=== PATIENT | female | born 1965 | race Caucasian/White ===

== ENCOUNTER → 2016-11-09 | Outpatient (CLI) | payer BC ==
--- NOTE | 2016-11-09 13:23 | P.PN ---
Progress Note - Text Patient returns for followup for chronic back pain with radiation to bilateral lower extremities s/p multiple laminectomy surgeries. Patient recently underwent left lumbar RFA and caudal epidural steroid injection x 1, the latter with excellent relief that is still persisting. Patient continues on [place] and adjuvant medications for pain from PCP with good relief. Patient denies adverse drug effects from medications. Today, pt denies new-onset weakness, bowel/bladder incontinence, or any other signs or symptoms of cauda equina syndrome. There are no signs of acute intoxication, and no indications of medication diversion or overuse. In addition to above, 13-point review of systems is also negative for chest pain , shortness of breath, changes in vision, changes in hearing, new onset weakness , abdominal pain, diarrhea, extreme fatigue, malaise, fever, skin changes, homicidal or suicidal ideation, or bowel or bladder incontinence. Vital Signs: Reviewed in EMR Gen: WDWN, AAOx3, NAD HEENT: NCAT, EOMI, hearing grossly normal Pulm: resp unlabored Abd: soft, NT, ND Neck: supple, trachea midline ROM in flexion lumbar spine: reduced due to pain ROM in extension lumbar spine: reduced due to pain Lumbar paravertebral tenderness: + Facet loading: ++ SI joint tenderness: + Guanaco's test: + R > L Straight leg raise: + bilateral, RLE at 35 degrees and LLE at 40 degrees Neuro: CN II-XII grossly intact, muscle strength lower extremities PRESERVED, but strength limited due to pain Imaging: Reviewed in EMR Assessment: 1. lumbar PLPS 2. lumbar radiculopathy 3. lumbar spondylosis without myelopathy 4. sacroiliitis Plan: 1. Explanation: Opioid and psychological risk scores were reviewed. Diagnoses , prognoses, and multiple treatment options including but not limited to physical therapy, interventional therapies, adjuvant medical therapies, narcotic medication therapies, and surgery were discussed with the patient and all questions were answered to the patient's satisfaction. 2. Opioid agreement: no narcotics prescribed 3. Counseling: The patient was counseled extensively on BODY MASS INDEX, EXERCISE. Specifically, the patient was instructed regarding the importance of weight loss and exercise in the context of both chronic pain and overall health. 4. Procedures: caudal KIM with epidurolysis in 8-10 weeks 5. Consultations: None 6. Investigations: None 7. Medications: none prescribed 8. Disposition: f/u for procedure as scheduled PQRS measures: 1-Patient's medications are documented in the chart. 2-Tobacco use is negative 3-Patient has not had a pneumococcal vaccine. 4-Advanced care planning discussed, patient unable to give. 5-Opioid contract NOT signed with the patient as we do not prescribe medications for her. 6-Pain positive, follow-up visit or procedure scheduled 7-Patient's blood pressure measured and documented, and patient will follow up with the primary care due to hypertension. 8-Patient's weight was measured, and body mass index ABOVE the normal limits, and counseling was done. Patient instructed to follow up with PCP. 9-Patient WAS NOT identified as an unhealthy alcohol user.
== END | disposition home or self-care (01) ==
CPT/HCPCS: 99211

== ENCOUNTER 2017-01-01 08:45 | Day surgery (SDC) | payer BC ==
[~2017-01-01 08:45] MED LIST: LACTATED RINGERS 1,000 ML IV SCH
[2017-01-01 09:41] VITALS: TEMP 98
[2017-01-01] MEDS ORDERED: LIDOCAINE 1% 20 ML VIAL (10MG/ML) FOR IV START INTRADERMA ONE (09:56)
[2017-01-01] MEDS ORDERED: BUPIVACAINE (PF) 0.5% 30 ML VIAL ONE (10:17)
[2017-01-01] MEDS ORDERED: fentaNYL (PF) 50 MCG/ML 2 ML AMP ONE (10:17)
[2017-01-01] MEDS ORDERED: TRIAMCINOLONE ACETONIDE 40 MG/ML 1 ML VIAL ONE (10:17)
[2017-01-01] MEDS ORDERED: MIDAZOLAM 2 MG/2 ML VIAL ONE (10:17)
--- NOTE | 2017-01-01 10:36 | P.PCN ---
Date of Procedure: 01/01/17 Surgeon: Gunner Arthur Pathology: none sent Condition: stable Disposition: PACU Description of Procedure: PREOP DIAGNOSIS: Lumbar postlaminectomy syndrome POSTOP DIAGNOSIS: Lumbar postlaminectomy syndrome PROCEDURE: Caudal epidural steroid injection with epidurolysis under fluoroscopic guidance ANESTHESIA: Local with 1% lidocaine; conscious sedation EBL: Minimal. PROCEDURE INDICATION: The patient with post-laminectomy syndrome with low back pain and radiculopathy radiating down in both legs, here for a caudal epidural steroid injection with epidurolysis. Patient does not use any blood thinning medications. PROCEDURE DESCRIPTION: The patient was seen and identified in the preoperative area. Risks, benefits, complications, and alternatives were discussed with the patient including but not limited to bleeding, infection, nerve damage, incomplete pain relief, and allergic reactions to medications. The patient agreed to proceed with the procedure and signed the consent after all questions were answered. IV was started, and vital signs were stable. Patient was taken to the OR and time out was completed to verify proper patient , procedure, laterality of pain, and allergies. The patient was placed in the prone position on procedure table and a pillow was placed under the abdomen to reduce lumbar lordosis. The lumbosacral area was prepped and draped in the usual sterile fashion. Critical pause was taken. Vital signs were closely monitored during the procedure. Fluoroscopic camera was placed in the lateral view and the anterior-posterior plates of the sacrum were identified with infiltration of the area overlying the sacral hiatus with 1% lidocaine .A 16 gauge RK epidural needle was used to advance through the sacral hiatus into the caudal epidural space. Omnipaque 300 dye 2cc was NOT injected due to shellfish allergy, but the position of the needle was verified to be in the midline with AP view. A Racz catheter was introduced into the epidural space and was advanced towards the L5-S1 interspace under direct fluoroscopic guidance. Multiple passes were made with the catheter for lysis of epidural adhesions. Kenalog 80mg with 2ml of preservative free Lidocaine 1% and 7 ml of preservative free normal saline was injected slowly. The needle and the catheter were withdrawn intact. COMPLICATIONS: None. DISPOSITION / PLANS: The patient was placed in a supine position and transferred to the recovery area in a stable condition for observation and was discharged from the recovery room after meeting discharge criteria. Home discharge instructions given to the patient by the staff. The patient was reexamined prior to discharge. The patient will schedule a follow up for a repeat caudal KIM with epidurolysis in 8 weeks.
[2017-01-01] MEDS ORDERED: IV FLUID CONTINUATION 700 ML IV ONE (10:46)
[2017-01-01 10:50] VITALS: RESP 18
--- NOTE | 2017-01-01 11:00 | FL ---
EXAMINATION TYPE: FL guided pain mgmt statistic DATE OF EXAM: 01/01/2017 10:38 AM HISTORY: Flouroscopy time 16 seconds of fluoroscopy provided. IMPRESSION: 1. Fluoroscopy time.
[2017-01-01 11:17] VITALS: BP 116/78; PULSE 78
== END 2017-01-01 11:15 | disposition home or self-care (01) ==
LOC: ORPAIN 08:45
PROVIDERS: ATTEND Anesthesiology
DX: M96.1 Postlaminectomy syndrome, not elsewhere classified (principal); M54.16 Radiculopathy, lumbar region; F41.9 Anxiety disorder, unspecified; F32.9 Major depressive disorder, single episode, unspecified; Z91.013 Allergy to seafood; Z79.891 Long term (current) use of opiate analgesic; Z79.899 Other long term (current) drug therapy
CPT/HCPCS: 81025; 62264; 99152; J2250; J3301; J3010

== ENCOUNTER 2017-02-26 08:48 | Day surgery (SDC) | payer BC ==
[2017-02-26 09:20] VITALS: RESP 18; TEMP 97.9
[2017-02-26] MEDS ORDERED: LACTATED RINGERS 1,000 ML IV ONE (09:20)
[2017-02-26] MEDS ORDERED: LIDOCAINE 1% 20 ML VIAL (10MG/ML) FOR IV START INTRADERMA ONE (09:21)
[2017-02-26] MEDS ORDERED: MIDAZOLAM 2 MG/2 ML VIAL ONE (09:50)
[2017-02-26] MEDS ORDERED: BUPIVACAINE (PF) 0.25% 30 ML VIAL ONE (09:50)
[2017-02-26] MEDS ORDERED: TRIAMCINOLONE ACETONIDE 40 MG/ML 1 ML VIAL ONE (09:50)
[2017-02-26] MEDS ORDERED: fentaNYL (PF) 50 MCG/ML 2 ML AMP ONE (09:50)
[2017-02-26] MEDS ORDERED: IOHEXOL 180 MG/ML 1 ML ML ONE (09:50)
--- NOTE | 2017-02-26 10:32 | P.PCN ---
Date of Procedure: 02/26/17 Preoperative Diagnosis: Failed back surgery syndrome Postoperative Diagnosis: Same as above Procedure(s) Performed: Caudal epidural steroid injection under fluoroscopic guidance Anesthesia: MAC Surgeon: Pato Bustamante Pathology: none sent Condition: stable Disposition: PACU Description of Procedure: The patient was seen in preop holding area consent was obtained then she was brought into the procedure room and placed in prone position. Skin was prepped with ChloraPrep and draped in a sterile manner. Lidocaine 1% was used to numb the skin up at the target point that was at the sacral hiatus on the lateral view of fluoroscopy. I used 17-gauge Touhy needle with a plastic sheath to go through the sacral hiatus and into the sacral canal. Then the plastic sheath was threaded in and the metal needlewas taken out. I then injected 2 MLS of Omnipaque which showed typical spread in the sacral canal, after that I threaded Racz catheter were the way to L5-S1 with back and forth movements to break the epidural adhesions. Then I injected 40 mg of Kenalog was 2 MLS of Marcaine 0.25% of 7 MLS of posterior free normal saline to a total volume of 7 MLS in epidural space. Patient tolerated procedure well.
[2017-02-26 10:54] VITALS: BP 100/62; PULSE 77
[2017-02-26] MEDS ORDERED: IV FLUID CONTINUATION 1,000 ML IV ONE (10:56)
--- NOTE | 2017-02-26 11:01 | FL ---
EXAMINATION TYPE: FL guided pain mgmt statistic DATE OF EXAM: 02/26/2017 10:32 AM CLINICAL HISTORY: Low back and sacral pain. TECHNIQUE: Fluoroscopy. COMPARISON: None. FINDINGS: Fluoroscopic guidance was provided during pain relief procedure performed by Dr. Bustamante. A total of 24 seconds of fluoroscopic time was utilized during the procedure and two spot images are acquired. Images acquired shows needle localization at level of the sacrum. IMPRESSION: As Above.
== END 2017-02-26 11:07 | disposition home or self-care (01) ==
LOC: ORPAIN 08:48
PROVIDERS: ATTEND Anesthesiology
DX: M96.1 Postlaminectomy syndrome, not elsewhere classified (principal); G96.12 Meningeal adhesions (cerebral) (spinal); Z91.013 Allergy to seafood
CPT/HCPCS: 81025; 62264; J2250; J3301; Q9965; J3010

== ENCOUNTER 2017-04-17 06:21 | Day surgery (SDC) | payer BC ==
[2017-04-13 14:20] VITALS: BMI 35.6
[2017-04-17 06:48] VITALS: RESP 18; TEMP 97.7
[2017-04-17] MEDS ORDERED: LACTATED RINGERS 1,000 ML IV ONE (06:51)
[2017-04-17] MEDS ORDERED: LIDOCAINE 1% 20 ML VIAL (10MG/ML) FOR IV START INTRADERMA ONE (06:51)
[2017-04-17] MEDS ORDERED: DEXAMETHASONE SOD PHOSPHATE 10 MG/ML 1 ML VIAL ONE (07:26)
[2017-04-17] MEDS ORDERED: fentaNYL (PF) 50 MCG/ML 2 ML AMP ONE (07:26)
[2017-04-17] MEDS ORDERED: MIDAZOLAM 2 MG/2 ML VIAL ONE (07:26)
[2017-04-17] MEDS ORDERED: LACTATED RINGERS 1,000 ML IV SCH (07:45)
[2017-04-17 08:14] VITALS: BP 133/65; PULSE 72
[2017-04-17] MEDS ORDERED: IV FLUID CONTINUATION 1,000 ML IV ONE (08:15)
--- NOTE | 2017-04-17 09:06 | P.PCN ---
Date of Procedure: 04/17/17 Preoperative Diagnosis: Postoperative Diagnosis: Procedure(s) Performed: Implants: Surgeon: Gunner Arthur Pathology: none sent Condition: stable Disposition: PACU Indications for Procedure: Operative Findings: Description of Procedure: PREOP DIAGNOSIS: Lumbar postlaminectomy syndrome POSTOP DIAGNOSIS: Lumbar postlaminectomy syndrome PROCEDURE: Caudal epidural steroid injection with epidurolysis under fluoroscopic guidance ANESTHESIA: Local with 1% lidocaine; conscious sedation EBL: Minimal. PROCEDURE INDICATION: The patient with post-laminectomy syndrome with low back pain and radiculopathy radiating down in both legs, here for a caudal epidural steroid injection with epidurolysis. Patient does not use any blood thinning medications. PROCEDURE DESCRIPTION: The patient was seen and identified in the preoperative area. Risks, benefits, complications, and alternatives were discussed with the patient including but not limited to bleeding, infection, nerve damage, incomplete pain relief, and allergic reactions to medications. The patient agreed to proceed with the procedure and signed the consent after all questions were answered. IV was started, and vital signs were stable. Patient was taken to the OR and time out was completed to verify proper patient , procedure, laterality of pain, and allergies. The patient was placed in the prone position on procedure table and a pillow was placed under the abdomen to reduce lumbar lordosis. The lumbosacral area was prepped and draped in the usual sterile fashion. Critical pause was taken. Vital signs were closely monitored during the procedure. Fluoroscopic camera was placed in the lateral view and the anterior-posterior plates of the sacrum were identified with infiltration of the area overlying the sacral hiatus with 1% lidocaine .A 16 gauge RK epidural needle was used to advance through the sacral hiatus into the caudal epidural space. Omnipaque 300 dye 2cc was NOT injected due to shellfish allergy, but the position of the needle was verified to be in the midline with AP view. A Racz catheter was introduced into the epidural space and was advanced towards the L5-S1 interspace under direct fluoroscopic guidance. Multiple passes were made with the catheter for lysis of epidural adhesions. Decadron 20 mg with 2ml of preservative free Lidocaine 1% and 5 ml of preservative free normal saline was injected slowly. The needle and the catheter were withdrawn intact. COMPLICATIONS: None. DISPOSITION / PLANS: The patient was placed in a supine position and transferred to the recovery area in a stable condition for observation and was discharged from the recovery room after meeting discharge criteria. Home discharge instructions given to the patient by the staff. The patient was reexamined prior to discharge and there were no issues. The patient will schedule a follow up in the clinic in 4-6 weeks.
--- NOTE | 2017-04-17 10:03 | FL ---
Fluoroscopy INDICATION: Pain FINDINGS: Fluoroscopy time: 10 seconds. Images obtained: 3. IMPRESSIONS: 1. Documentation of fluoroscopy.
== END 2017-04-17 08:24 | disposition home or self-care (01) ==
LOC: ORPAIN 06:21
PROVIDERS: ATTEND Anesthesiology
DX: M96.1 Postlaminectomy syndrome, not elsewhere classified (principal); M51.36 Other intervertebral disc degeneration, lumbar region; M48.06 Spinal stenosis, lumbar region; F41.9 Anxiety disorder, unspecified; Z79.891 Long term (current) use of opiate analgesic; Z79.899 Other long term (current) drug therapy; Z91.013 Allergy to seafood
CPT/HCPCS: 62264; 99152; J2250; J1100; J3010

== ENCOUNTER → 2017-05-29 | Outpatient (CLI) | payer BC ==
[2017-05-29 14:22] VITALS: BP 110/72; PULSE 87; RESP 16; TEMP 98
--- NOTE | 2017-05-29 14:24 | P.PN ---
Progress Note - Text Patient returns for followup for chronic neck and back pain with radiation to bilateral lower extremities s/p multiple laminectomy surgeries; neck pain is now radiating to left upper extremity and has worsened in last three months. Patient recently underwent caudal IKM x 3 with epidurolysis for back pain, with good relief that is still persisting. Patient continues on [place] and adjuvant medications for pain from PCP with good relief. Patient denies adverse drug effects from medications. Today, pt denies new-onset weakness, bowel/bladder incontinence, or any other signs or symptoms of cauda equina syndrome. There are no signs of acute intoxication, and no indications of medication diversion or overuse. In addition to above, 13-point review of systems is also negative for chest pain , shortness of breath, changes in vision, changes in hearing, new onset weakness , abdominal pain, diarrhea, extreme fatigue, malaise, fever, skin changes, homicidal or suicidal ideation, or bowel or bladder incontinence. Vital Signs: Reviewed in EMR Gen: WDWN, AAOx3, NAD HEENT: NCAT, EOMI, hearing grossly normal Pulm: resp unlabored Abd: soft, NT, ND Neck: supple, trachea midline ROM cervical spine flexion: reduced ROM cervical spine extension: reduced +cervical facet tenderness, L >> R Spurling's neg bilateral decreased equipment maint tech strength LUE as compared to RUE Imaging: Reviewed in EMR Assessment: 1. lumbar PLPS 2. lumbar radiculopathy 3. lumbar spondylosis without myelopathy 4. sacroiliitis 5. cervical radic Plan: 1. Explanation: Opioid and psychological risk scores were reviewed. Diagnoses , prognoses, and multiple treatment options including but not limited to physical therapy, interventional therapies, adjuvant medical therapies, narcotic medication therapies, and surgery were discussed with the patient and all questions were answered to the patient's satisfaction. 2. Opioid agreement: no narcotics prescribed 3. Counseling: The patient was counseled extensively on BODY MASS INDEX, EXERCISE. Specifically, the patient was instructed regarding the importance of weight loss and exercise in the context of both chronic pain and overall health. 4. Procedures: none for now 5. Consultations: None 6. Investigations: MRI cervical spine 7. Medications: none prescribed 8. Disposition: f/u for re-eval in 6 weeks with MRI C-spine result PQRS measures: 1-Patient's medications are documented in the chart. 2-Tobacco use is negative 3-Patient has not had a pneumococcal vaccine. 4-Advanced care planning discussed, patient unable to give. 5-Opioid contract NOT signed with the patient as we do not prescribe medications for her. 6-Pain positive, follow-up visit or procedure scheduled 7-Patient's blood pressure measured and documented, and patient will follow up with the primary care due to hypertension. 8-Patient's weight was measured, and body mass index ABOVE the normal limits, and counseling was done. Patient instructed to follow up with PCP. 9-Patient WAS NOT identified as an unhealthy alcohol user.
== END | disposition home or self-care (01) ==
LOC: PNWHC3 13:56
PROVIDERS: ATTEND Anesthesiology
DX: M47.26 Other spondylosis with radiculopathy, lumbar region (principal); M46.1 Sacroiliitis, not elsewhere classified; M96.1 Postlaminectomy syndrome, not elsewhere classified; M54.12 Radiculopathy, cervical region; Z79.899 Other long term (current) drug therapy
CPT/HCPCS: 99211

== ENCOUNTER 2017-12-01 12:10 | Emergency (ER) | payer BC ==
[2017-12-01 12:24] VITALS: TEMP 97.5
--- NOTE | 2017-12-01 13:21 | ED ---
Female Urogenital HPI - General Chief complaint: Vaginal Bleeding Stated complaint: Vaginal Bleeding Time Seen by Provider: 12/01/17 12:26 Source: patient, RN notes reviewed Mode of arrival: ambulatory Limitations: no limitations - History of Present Illness Initial comments: This is a 52-year-old female who presents to the emergency department with chief complaint of vaginal bleeding. Patient states that she was having regular periods up until October 07. She states that on October 07 she began bleeding which later became spotting. Patient states that on Sunday she noticed an increase in her vaginal bleeding. She states that she did make an appointment with an LEAD INSTRUCTOR/FLIGHT ATTENDANT, Dr. Joiner'karli for December 11. Patient states that this morning she woke up and her pad and underwear were completely soaked. Patient states she has never experienced anything like this before. She has had four pregnancies, 2 live births and 2 miscarriages. Patient states that she was on Depo-Provera until the age of 44. Denies history of STDs. Patient states she is sexually active with her . Patient states that this morning she also began to develop some lower abdominal cramping. She denies fever or chills, nausea or vomiting, urinary symptoms such as dysuria, increased frequency or urgency. She does state that she has noticed some blood in her urine but believes it is from the vaginal blood. Patient states that she is changing her pads every half hour to 1 hour but that when she does they' re not completely saturated. Patient states that today she is feeling weak, stating she feels out of it. Denies any dizziness. Last Menstrual Period: 10/07/17 - Related Data Home Medications Medication Instructions Recorded Confirmed ALPRAZolam [Xanax] 0.25 mg PO HS PRN 03/26/14 05/29/17 HYDROcodone/APAP 10-325MG [[place] 1 tab PO TID PRN 03/26/14 05/29/17 10-325] PARoxetine HCL [Paxil] 40 mg PO HS 03/26/14 05/29/17 Simvastatin [Zocor] 20 mg PO HS 03/26/14 05/29/17 Valsartan/Hydrochlorothiazide 1 tab PO DAILY 03/26/14 05/29/17 [Diovan Hct 160-12.5 mg Tab] Etodolac [Lodine] 400 mg PO BID 12/21/14 05/29/17 Pregabalin [Lyrica] 75 mg PO BID 04/12/16 05/29/17 Cyclobenzaprine [Flexeril] 10 mg PO BID 12/01/17 12/01/17 Allergies Allergy/AdvReac Type Severity Reaction Status Date / Time shellfish derived Allergy Itching Verified 12/01/17 13:14 and Swelling Review of Systems ROS Statement: Those systems with pertinent positive or pertinent negative responses have been documented in the HPI. ROS Other: All systems not noted in ROS Statement are negative. Past Medical History Past Medical History: Fibromyalgia, Hyperlipidemia, Hypertension, Osteoarthritis (OA) Additional Past Medical History / Comment(s): BACK PAIN History of Any Multi-Drug Resistant Organisms: None Reported Past Surgical History: Adenoidectomy, Back Surgery, Cholecystectomy, Tonsillectomy Additional Past Surgical History / Comment(s): D & C , thyroid - CYST REMOVED, pain clinic procedures, BACK SURGERY,ARTHROSCOPIC RT HIP Past Anesthesia/Blood Transfusion Reactions: No Reported Reaction Past Psychological History: Anxiety, Depression Smoking Status: Former smoker Past Alcohol Use History: None Reported Past Drug Use History: None Reported - Past Family History Daughter(s) Family Medical History: Cancer Additional Family Medical History / Comment(s): THYROID CANCER Mother Family Medical History: COPD General Exam - General Exam Comments Initial Comments: General: Awake and alert, well-developed; in no apparent distress. HEENT: Head atraumatic, normocephalic. Pupils are equal, round and reactive to light. Extraocular movements intact. Oropharynx moist without erythema or exudate. Neck: Supple. Normal ROM. Cardiovascular: Regular rate and rhythm. No murmurs, rubs or gallops. Chest symmetrical. Respiratory: Lungs clear to auscultation bilaterally. No wheezes, rales or rhonchi. Normal respiratory effort with no use of accessory muscles. Abdomen: Soft, non-tender, non-distended. No rigidity, rebound or guarding. Normal bowel sounds in all 4 quadrants. Musculoskeletal: Normal ROM, no tenderness bilateral upper and lower extremities. Skin: [place], warm and dry without rashes or lesions. Neurological: Alert and oriented x3. CN II-XII grossly intact. Speech is fluent and answers are appropriate. No focal neuro deficits. Psychiatric: Normal mood and affect. No overt signs of depression or anxiety noted. Limitations: no limitations External exam: Present: normal external exam. Absent: lesions Speculum exam: Present: vaginal bleeding. Absent: erythema, vaginal discharge By manual exam: Present: uterine tenderness. Absent: cervical motion tenderness , adnexal tenderness Course Vital Signs 12/01/17 12/01/17 12:21 14:10 Temperature 97.5 F L Pulse Rate 97 79 Respiratory 16 18 Rate Blood Pressure 123/88 110/58 O2 Sat by Pulse 99 99 Oximetry Medical Decision Making - Medical Decision Making This is a 52-year-old female who presented to the emergency department with chief complaint of vaginal bleeding. Patient had a negative urine hCG. CBC was within normal limits with a hemoglobin of 12.6. Coagulation labs were all within normal limits. Patient did have blood in her urine but she has active vaginal bleeding on speculum exam. An ultrasound was performed with suboptimal views but a thickened endometrium was suspected. Patient is in no acute distress at this time. She will be discharged home with recommendation to follow-up with her LEAD INSTRUCTOR/FLIGHT ATTENDANT as scheduled on December 11. Return parameters were discussed. Patient is in agreement with plan and voices understanding. All questions were answered. - Lab Data Result diagrams: 12/01/17 13:00 12/01/17 13:00 Lab Results 12/01/17 12/01/17 12/01/17 Range/Units 13:00 13:00 13:00 WBC 5.1 (3.8-10.6) k/uL RBC 4.36 (3.80-5.40) m/uL Hgb 12.6 (11.4-16.0) gm/dL Hct 38.6 (34.0-46.0) % MCV 88.6 (80.0-100.0) fL MCH 29.0 (25.0-35.0) pg MCHC 32.7 (31.0-37.0) g/dL RDW 14.0 (11.5-15.5) % Plt Count 273 (150-450) k/uL Neutrophils % 64 % Lymphocytes % 28 % Monocytes % 5 % Eosinophils % 1 % Basophils % 1 % Neutrophils # 3.3 (1.3-7.7) k/uL Lymphocytes # 1.4 (1.0-4.8) k/uL Monocytes # 0.2 (0-1.0) k/uL Eosinophils # 0.1 (0-0.7) k/uL Basophils # 0.0 (0-0.2) k/uL PT (9.0-12.0) sec INR (<1.2) APTT (22.0-30.0) sec Sodium 138 (137-145) mmol/L Potassium 4.3 (3.5-5.1) mmol/L Chloride 105 (98-107) mmol/L Carbon Dioxide 24 (22-30) mmol/L Anion Gap 9 mmol/L BUN 11 (7-17) mg/dL Creatinine 0.75 (0.52-1.04) mg/dL Est GFR (MDRD) Af Amer >60 (>60 ml/min/1.73 sqM) Est GFR (MDRD) Non-Af >60 (>60 ml/min/1.73 sqM) Glucose 101 H (74-99) mg/dL Calcium 9.6 (8.4-10.2) mg/dL Total Bilirubin 0.3 (0.2-1.3) mg/dL AST 19 (14-36) U/L ALT 25 (9-52) U/L Alkaline Phosphatase 60 (38-126) U/L Total Protein 6.2 L (6.3-8.2) g/dL Albumin 3.8 (3.5-5.0) g/dL Urine Color Urine Appearance (Clear) Urine pH (5.0-8.0) Ur Specific [place] (1.001-1.035) Urine Protein (Negative) Urine Glucose (UA) (Negative) Urine Ketones (Negative) Urine Blood (Negative) Urine Nitrite (Negative) Urine Bilirubin (Negative) Urine Urobilinogen (<2.0) mg/dL Ur Leukocyte Esterase (Negative) Urine RBC (0-5) /hpf Urine WBC (0-5) /hpf Ur Squamous Epith Cells (0-4) /hpf Urine Mucus (None) /hpf Urine HCG, Qual Not Detected (Not Detectd) 12/01/17 12/01/17 Range/Units 13:00 13:00 WBC (3.8-10.6) k/uL RBC (3.80-5.40) m/uL Hgb (11.4-16.0) gm/dL Hct (34.0-46.0) % MCV (80.0-100.0) fL MCH (25.0-35.0) pg MCHC (31.0-37.0) g/dL RDW (11.5-15.5) % Plt Count (150-450) k/uL Neutrophils % % Lymphocytes % % Monocytes % % Eosinophils % % Basophils % % Neutrophils # (1.3-7.7) k/uL Lymphocytes # (1.0-4.8) k/uL Monocytes # (0-1.0) k/uL Eosinophils # (0-0.7) k/uL Basophils # (0-0.2) k/uL PT 9.9 (9.0-12.0) sec INR 1.0 (<1.2) APTT 24.5 (22.0-30.0) sec Sodium (137-145) mmol/L Potassium (3.5-5.1) mmol/L Chloride (98-107) mmol/L Carbon Dioxide (22-30) mmol/L Anion Gap mmol/L BUN (7-17) mg/dL Creatinine (0.52-1.04) mg/dL Est GFR (MDRD) Af Amer (>60 ml/min/1.73 sqM) Est GFR (MDRD) Non-Af (>60 ml/min/1.73 sqM) Glucose (74-99) mg/dL Calcium (8.4-10.2) mg/dL Total Bilirubin (0.2-1.3) mg/dL AST (14-36) U/L ALT (9-52) U/L Alkaline Phosphatase (38-126) U/L Total Protein (6.3-8.2) g/dL Albumin (3.5-5.0) g/dL Urine Color Light Red Urine Appearance Cloudy H (Clear) Urine pH 8.0 (5.0-8.0) Ur Specific [place] 1.020 (1.001-1.035) Urine Protein 1+ H (Negative) Urine Glucose (UA) Negative (Negative) Urine Ketones Negative (Negative) Urine Blood Large H (Negative) Urine Nitrite Negative (Negative) Urine Bilirubin 2+ H (Negative) Urine Urobilinogen <2.0 (<2.0) mg/dL Ur Leukocyte Esterase Trace H (Negative) Urine RBC >182 H (0-5) /hpf Urine WBC 11 H (0-5) /hpf Ur Squamous Epith Cells 1 (0-4) /hpf Urine Mucus Rare H (None) /hpf Urine HCG, Qual (Not Detectd) - Radiology Data Radiology results: report reviewed Transvaginal ultrasound impression: Suboptimal visualization of the endometrium which is suspected thickened, based on patient's symptoms consider gynecology referral to assess for D&C. There is non-simple cystic left ovary. Follow-up ultrasound 6 weeks time is advised to further assess. Disposition Clinical Impression: Vaginal bleeding, Endometrial thickening on ultra sound Disposition: HOME SELF-CARE Condition: Good Instructions: Dysfunctional Uterine Bleeding (ED) Additional Instructions: Please follow up with LEAD INSTRUCTOR/FLIGHT ATTENDANT as scheduled. Please follow up with primary care provider within 1-2 days. Return to emergency department if symptoms should worsen or any concerns arise. Referrals: Margo Fischer MD [Primary Care Provider] - 1-2 days Time of Disposition: 14:53
[2017-12-01 13:25] LABS: Basophils % (A) 1 %; Eosinophils # (A) 0.1 k/uL (0-0.7); Eosinophils % (A) 1 %; HCT 38.6 % (34.0-46.0); HGB 12.6 gm/dL (11.4-16.0); Lymphocytes # (A) 1.4 k/uL (1.0-4.8); Lymphocytes % (A) 28 %; MCHC 32.7 g/dL (31.0-37.0); MCV 88.6 fL (80.0-100.0); Mean Platelet Volume 7.8; Monocytes # (A) 0.2 k/uL (0-1.0); Monocytes % (A) 5 %; Neutrophils # (A) 3.3 k/uL (1.3-7.7); Neutrophils % (A) 64 %; Platelet Count 273 k/uL (150-450); RBC 4.36 m/uL (3.80-5.40); WBC 5.1 k/uL (3.8-10.6)
[2017-12-01 13:33] LABS: Appearance,Urine Cloudy (Clear); Bilirubin,Urine 2+ (Negative); Blood,Urine Large (Negative); Color,Urine Light Red; Glucose,Urine (UA) Negative (Negative); Ketones,Urine Negative (Negative); Leukocyte Esterase,Urine Trace (Negative); Mucus,Urine Rare /hpf; Nitrite,Urine Negative (Negative); Protein,Urine 1+ (Negative); RBC,Urine >182 /hpf (0-5); Squamous Epithelial Cell,Urine 1 /hpf (0-4); Urobilinogen,Urine <2.0 mg/dL (<2.0); WBC,Urine 11 /hpf (0-5)
[2017-12-01 13:36] LABS: ALT 25 U/L (9-52); AST 19 U/L (14-36); Albumin 3.8 g/dL (3.5-5.0); Alkaline Phosphatase 60 U/L (38-126); Anion Gap 9 mmol/L; Blood Urea Nitrogen 11 mg/dL (7-17); Calcium 9.6 mg/dL (8.4-10.2); Carbon Dioxide 24 mmol/L (22-30); Chloride 105 mmol/L (98-107); Glucose 101 mg/dL (74-99); Potassium 4.3 mmol/L (3.5-5.1); Sodium 138 mmol/L (137-145); Total Bilirubin 0.3 mg/dL (0.2-1.3); Total Protein 6.2 g/dL (6.3-8.2)
[2017-12-01 13:40] LABS: Partial Thromboplastin Time 24.5 sec (22.0-30.0); Prothrombin Time 9.9 sec (9.0-12.0)
--- NOTE | 2017-12-01 14:35 | US ---
EXAMINATION TYPE: US transvaginal DATE OF EXAM: 12/01/2017 COMPARISON: NONE CLINICAL HISTORY: vaginal bleeding. Bleeding since Oct 07, was on depo till age 44, , h/o tubal cy st removal TECHNIQUE: TV Date of LMP: 10/07/2017 EXAM MEASUREMENTS: Uterus: 8.0 x 3.5 x 4.7 cm Endometrial Stripe: 1.5 cm Right Ovary: 2.3 x 1.5 x 1.8 cm Left Ovary: 2.6 x 1.6 x 2.1 cm Patient has chronic back pain and could not lay fully flat, with UT angling to the right it limited e xam. 1. Uterus: Anteverted, UT tilts far right and difficult to image, but no obvious pathology noted 2. Endometrium: thickened in appearance 3. Right Ovary: wnl 4. Left Ovary: 2.3cm septated cyst with internal debris noted Spectral, color and waveform doppler imaging shows good arterial and venous flow within the ovaries . 5. Bilateral Adnexa: wnl 6. Posterior cul-de-sac: wnl There is poor visualization of endometrium on images saved. Measurements may be inaccurate. Patient i s noted premenopausal in notes. No free fluid is seen in pelvic cul-de-sac. There is 2.3 cm nonsimple cyst left ovary noted. IMPRESSION: Suboptimal visualization of endometrium which is suspected thickened, based on patient's symptoms consider gynecology referral to assess for D&C. There is nonsimple cyst left ovary. Follow-u p ultrasound 6 weeks' time is advised to further assess.
[2017-12-01 15:14] VITALS: BP 109/64; PULSE 89; RESP 16
== END 2017-12-01 15:14 | disposition home or self-care (01) ==
LOC: EC 12:10
DX: N93.9 Abnormal uterine and vaginal bleeding, unspecified (principal); R93.8 Abnormal findings on diagnostic imaging of other specified body structures; M79.7 Fibromyalgia; I10 Essential (primary) hypertension; E78.5 Hyperlipidemia, unspecified; F32.9 Major depressive disorder, single episode, unspecified; F41.9 Anxiety disorder, unspecified; Z90.49 Acquired absence of other specified parts of digestive tract; Z98.890 Other specified postprocedural states; Z87.891 Personal history of nicotine dependence; Z91.013 Allergy to seafood; Z32.02 Encounter for pregnancy test, result negative; Z79.899 Other long term (current) drug therapy
CPT/HCPCS: 36415; 76830; 80053; 81001; 81025; 85025; 85610; 85730; 93975; 99284

== ENCOUNTER → 2017-12-11 | Outpatient (CLI) | payer BC ==
--- NOTE | 2017-12-12 10:50 | MM ---
Reason for exam: screening (asymptomatic). Last mammogram was performed 2 years and 6 months ago. History: Family history of breast cancer in paternal grandmother. Physical Findings: A clinical breast exam by your physician is recommended on an annual basis and results should be correlated with mammographic findings. MG Screening Mammo w CAD Bilateral CC and MLO view(s) were taken. Prior study comparison: June 25, 2015, bilateral MG screening mammo w CAD. November 03, 2013, bilateral digital screening mammo w/CAD. The breast tissue is heterogeneously dense. This may lower the sensitivity of mammography. Finding: There are typically benign round calcifications in both breasts. There is no discrete abnormality. ASSESSMENT: Benign, BI-RAD 2 RECOMMENDATION: Routine screening mammogram of both breasts in 1 year.
--- NOTE | 2017-12-12 12:06 | BD ---
EXAMINATION TYPE: MG DEXA axial skeleton. DATE OF EXAM: 12/11/2017 COMPARISON: NONE CLINICAL HISTORY: Postmenopausal female. Osteoporosis screening. Height: 63 IN Weight: 207 LBS FRAX RISK QUESTIONS: Alcohol (3 or more units per day): NO Family History (Parent hip fracture): NO Glucocorticoids (More than 3mos): NO (Ex: prednisone, prednisolone, methylprednisolone, dexamethasone, and hydrocortisone). History of Fracture in Adulthood: NO Secondary Osteoporosis: 1. Type 1 Diabetes: NO 2. Hyperthyroidism: NO 3. Menopause before 45: NO 4. Malnutrition: NO 5. Chronic liver disease: NO Rheumatoid Arthritis: NO Current Tobacco Use: NO RISK FACTORS HISTORY OF: Surgery to Spine: YES When: DEC 2004 Active: YES Diet low in dairy products/other sources of calcium: YES If Premenopausal, do you have irregular periods: YES MEDICATIONS: Additional Medications: VALSARTAN HCT, FLEXERIL, NORCO, PAXIL, LODINE, XANAX, SIMVASTATIN, LYRICA EXAM MEASUREMENTS: Bone mineral densitometry was performed using the [employer]. PT HAD L-SPINE SURGERY 2004 Bone mineral density about the R hip (g/cm2): 0.996 Bone mineral density about the L hip (g/cm2): 0.970 T Score values are as follows: -----R Neck: -0.3 -----L Neck: -0.5 -----R Total: 1.1 -----L Total: 1.3 Bone mineral density BASELINE IMPRESSION: Normal (Values between +1 and -1 indicate normal bone mass). Consider repeating this study in 5 year s or sooner if there is some new clinical indication. NOTE: T-SCORE=SD OF THE YOUNG ADULT MEAN.
== END | disposition home or self-care (01) ==
LOC: RADMAMWWP 14:52
PROVIDERS: ATTEND Internal Medicine
DX: Z12.31 Encounter for screening mammogram for malignant neoplasm of breast (principal); M85.9 Disorder of bone density and structure, unspecified
CPT/HCPCS: 77067; 77080

== ENCOUNTER 2018-05-28 13:13 | Observation (INO) | payer BC ==
[2018-05-28] MEDS ORDERED: ASPIRIN 81 MG PO STA (13:34)
[2018-05-28] MEDS ORDERED: NITROGLYCERIN OINT 1 INCH/GM PACKET TOPICAL STA (13:34)
--- NOTE | 2018-05-28 13:37 | ED ---
General Adult HPI - General Chief complaint: Chest Pain Stated complaint: Chest pain/sob Time Seen by Provider: 05/28/18 13:15 Source: patient, RN notes reviewed Mode of arrival: ambulatory Limitations: no limitations - History of Present Illness Initial comments: This is a 52-year-old female presents emergency Department with a past medical history significant for high cholesterol high blood pressure. Patient comes in today complaining of shortness of breath over the last 3 days and intermittent chest pain with the shortness of breath over the last 3 days. Patient states today at work her fit. Told her heart race been 106 in the 126. Patient states she can feel her heart racing and was a spray some chest heaviness at that time but that is subsided at this time. Patient states even lying in bed she still feels short of breath. Patient denies any calf pain or leg swelling. Patient denies abdominal pain patient denies nausea vomiting diarrhea. Patient denies any headache patient denies numbness weakness. Patient denies lightheadedness dizziness or near syncopal episode. - Related Data Home Medications Medication Instructions Recorded Confirmed ALPRAZolam [Xanax] 0.25 mg PO HS PRN 03/26/14 05/28/18 HYDROcodone/APAP 10-325MG [Bigelow 1 tab PO Q12H 03/26/14 05/28/18 10-325] PARoxetine HCL [Paxil] 60 mg PO HS 03/26/14 05/28/18 Etodolac [Lodine] 400 mg PO BID 12/21/14 05/28/18 Pregabalin [Lyrica] 75 mg PO BID 04/12/16 05/28/18 Cyclobenzaprine [Flexeril] 10 mg PO BID 12/01/17 05/28/18 Losartan-Hctz 50-12.5 mg [Hyzaar 1 tab PO DAILY 05/28/18 05/28/18 50-12.5] Allergies Allergy/AdvReac Type Severity Reaction Status Date / Time shellfish derived Allergy Itching Verified 05/28/18 13:21 and Swelling Review of Systems ROS Statement: Those systems with pertinent positive or pertinent negative responses have been documented in the HPI. ROS Other: All systems not noted in ROS Statement are negative. Past Medical History Past Medical History: Fibromyalgia, Hyperlipidemia, Hypertension, Osteoarthritis (OA) Additional Past Medical History / Comment(s): BACK PAIN History of Any Multi-Drug Resistant Organisms: None Reported Past Surgical History: Adenoidectomy, Back Surgery, Cholecystectomy, Tonsillectomy Additional Past Surgical History / Comment(s): D & C , thyroid - CYST REMOVED, pain clinic procedures, BACK SURGERY,ARTHROSCOPIC RT HIP Past Anesthesia/Blood Transfusion Reactions: No Reported Reaction Past Psychological History: Anxiety, Depression Smoking Status: Former smoker Past Alcohol Use History: None Reported Past Drug Use History: None Reported - Past Family History Daughter(s) Family Medical History: Cancer Additional Family Medical History / Comment(s): THYROID CANCER Mother Family Medical History: COPD General Exam - General Exam Comments Initial Comments: GENERAL: Patient is well-developed and well-nourished. Patient is nontoxic and well- hydrated and is in mild distress. ENT: Neck is soft and supple. No significant lymphadenopathy is noted. Oropharynx is clear. Moist mucous membranes. Neck has full range of motion without eliciting any pain. EYES: The sclera were anicteric and conjunctiva were pink and moist. Extraocular movements were intact and pupils were equal round and reactive to light. Eyelids were unremarkable. PULMONARY: Unlabored respirations. Good breath sounds bilaterally. No audible rales rhonchi or wheezing was noted. CARDIOVASCULAR: There is a regular rate and rhythm without any murmurs gallops or rubs. ABDOMEN: Soft and nontender with normal bowel sounds. No palpable organomegaly was noted. There is no palpable pulsatile mass. SKIN: Skin is clear with no lesions or rashes and otherwise unremarkable. NEUROLOGIC: Patient is alert and oriented x3. Cranial nerves II through XII are grossly intact. Motor and sensory are also intact. Normal speech, volume and content. Symmetrical smile. MUSCULOSKELETAL: Normal extremities with adequate strength and full range of motion. No lower extremity swelling or edema. No calf tenderness. LYMPHATICS: No significant lymphadenopathy is noted PSYCHIATRIC: Normal psychiatric evaluation. Normal interpersonal interactions appears functionally intact in deals appropriately with others. No signs of depression. No signs of anxiety. Limitations: no limitations Course Vital Signs 05/28/18 05/28/18 05/28/18 13:17 13:31 13:37 Temperature 98.1 F Pulse Rate 98 87 Pulse Rate [ 82 Bilateral Supine Photo Mask Pattern Generator] Respiratory 18 18 Rate Blood Pressure 148/87 157/78 O2 Sat by Pulse 98 99 Oximetry Medical Decision Making - Medical Decision Making EKG shows sinus rhythm at 80 bpm WV interval is on a 14 QRS is 82 QT interval 388 QTC is 447. Patient's EKG shows no ST segment elevation or depression or T wave abnormalities are noted. Chest x-ray shows no acute abnormality. I spoke with Dr. Fischer he agreed to admit the patient admitted the patient and consult to cardiology. - Lab Data Result diagrams: 05/28/18 13:33 05/28/18 13:33 Lab Results 05/28/18 05/28/18 05/28/18 Range/Units 13:33 13:33 13:33 WBC 7.1 (3.8-10.6) k/uL RBC 4.75 (3.80-5.40) m/uL Hgb 13.4 (11.4-16.0) gm/dL Hct 40.3 (34.0-46.0) % MCV 84.8 (80.0-100.0) fL MCH 28.3 (25.0-35.0) pg MCHC 33.4 (31.0-37.0) g/dL RDW 14.4 (11.5-15.5) % Plt Count 313 (150-450) k/uL Neutrophils % 56 % Lymphocytes % 32 % Monocytes % 6 % Eosinophils % 3 % Basophils % 0 % Neutrophils # 4.0 (1.3-7.7) k/uL Lymphocytes # 2.3 (1.0-4.8) k/uL Monocytes # 0.5 (0-1.0) k/uL Eosinophils # 0.2 (0-0.7) k/uL Basophils # 0.0 (0-0.2) k/uL PT (9.0-12.0) sec INR (<1.2) APTT (22.0-30.0) sec D-Dimer (<0.60) mg/L FEU Sodium 139 (137-145) mmol/L Potassium 3.9 (3.5-5.1) mmol/L Chloride 106 (98-107) mmol/L Carbon Dioxide 22 (22-30) mmol/L Anion Gap 11 mmol/L BUN 9 (7-17) mg/dL Creatinine 0.77 (0.52-1.04) mg/dL Est GFR (CKD-EPI)AfAm >90 (>60 ml/min/1.73 sqM) Est GFR (CKD-EPI)NonAf 88 (>60 ml/min/1.73 sqM) Glucose 88 (74-99) mg/dL Calcium 9.7 (8.4-10.2) mg/dL Magnesium 2.1 (1.6-2.3) mg/dL Total Bilirubin 0.5 (0.2-1.3) mg/dL AST 39 H (14-36) U/L ALT 23 (9-52) U/L Alkaline Phosphatase 78 (38-126) U/L Total Creatine Kinase 169 H (30-135) U/L CK-MB (CK-2) 1.5 (0.0-2.4) ng/mL CK-MB (CK-2) Rel Index 0.9 Troponin I <0.012 (0.000-0.034) ng/mL NT-Pro-B Natriuret Pep pg/mL Total Protein 7.2 (6.3-8.2) g/dL Albumin 4.5 (3.5-5.0) g/dL 05/28/18 05/28/18 Range/Units 13:33 13:33 WBC (3.8-10.6) k/uL RBC (3.80-5.40) m/uL Hgb (11.4-16.0) gm/dL Hct (34.0-46.0) % MCV (80.0-100.0) fL MCH (25.0-35.0) pg MCHC (31.0-37.0) g/dL RDW (11.5-15.5) % Plt Count (150-450) k/uL Neutrophils % % Lymphocytes % % Monocytes % % Eosinophils % % Basophils % % Neutrophils # (1.3-7.7) k/uL Lymphocytes # (1.0-4.8) k/uL Monocytes # (0-1.0) k/uL Eosinophils # (0-0.7) k/uL Basophils # (0-0.2) k/uL PT 9.5 (9.0-12.0) sec INR 1.0 (<1.2) APTT 23.0 (22.0-30.0) sec D-Dimer 0.38 (<0.60) mg/L FEU Sodium (137-145) mmol/L Potassium (3.5-5.1) mmol/L Chloride (98-107) mmol/L Carbon Dioxide (22-30) mmol/L Anion Gap mmol/L BUN (7-17) mg/dL Creatinine (0.52-1.04) mg/dL Est GFR (CKD-EPI)AfAm (>60 ml/min/1.73 sqM) Est GFR (CKD-EPI)NonAf (>60 ml/min/1.73 sqM) Glucose (74-99) mg/dL Calcium (8.4-10.2) mg/dL Magnesium (1.6-2.3) mg/dL Total Bilirubin (0.2-1.3) mg/dL AST (14-36) U/L ALT (9-52) U/L Alkaline Phosphatase (38-126) U/L Total Creatine Kinase (30-135) U/L CK-MB (CK-2) (0.0-2.4) ng/mL CK-MB (CK-2) Rel Index Troponin I (0.000-0.034) ng/mL NT-Pro-B Natriuret Pep 27 pg/mL Total Protein (6.3-8.2) g/dL Albumin (3.5-5.0) g/dL Disposition Clinical Impression: Chest pain, Palpitations Disposition: ADMITTED IP TO THIS HOSP Referrals: Margo Fischer MD [Primary Care Provider] - 1-2 days Time of Disposition: 14:42
[2018-05-28 13:44] LABS: Basophils % (A) 0 %; Eosinophils # (A) 0.2 k/uL (0-0.7); Eosinophils % (A) 3 %; HCT 40.3 % (34.0-46.0); HGB 13.4 gm/dL (11.4-16.0); Lymphocytes # (A) 2.3 k/uL (1.0-4.8); Lymphocytes % (A) 32 %; MCH 28.3 pg (25.0-35.0); MCHC 33.4 g/dL (31.0-37.0); MCV 84.8 fL (80.0-100.0); Mean Platelet Volume 6.9; Monocytes # (A) 0.5 k/uL (0-1.0); Monocytes % (A) 6 %; Neutrophils % (A) 56 %; Platelet Count 313 k/uL (150-450); RBC 4.75 m/uL (3.80-5.40); RDW 14.4 % (11.5-15.5); WBC 7.1 k/uL (3.8-10.6)
[2018-05-28 13:58] LABS: ALT 23 U/L (9-52); Albumin 4.5 g/dL (3.5-5.0); Alkaline Phosphatase 78 U/L (38-126); Anion Gap 11 mmol/L; Calcium 9.7 mg/dL (8.4-10.2); Carbon Dioxide 22 mmol/L (22-30); Chloride 106 mmol/L (98-107); D-Dimer 0.38 mg/L FEU (<0.60); Glucose 88 mg/dL (74-99); Magnesium 2.1 mg/dL (1.6-2.3); Prothrombin Time 9.5 sec (9.0-12.0); Sodium 139 mmol/L (137-145); Total Bilirubin 0.5 mg/dL (0.2-1.3); Total Protein 7.2 g/dL (6.3-8.2)
[2018-05-28 13:59] LABS: Potassium 3.9 mmol/L (3.5-5.1)
[2018-05-28 14:00] LABS: AST 39 U/L (14-36); Blood Urea Nitrogen 9 mg/dL (7-17)
--- NOTE | 2018-05-28 14:08 | XR ---
EXAMINATION TYPE: XR chest 2V DATE OF EXAM: 05/28/2018 COMPARISON: 02/14/2010 HISTORY: Chest pain TECHNIQUE: Frontal and lateral views of the chest are obtained. FINDINGS: Minimal left basilar linear subsegmental atelectasis is seen. There is no focal air space opacity, pleural effusion, or pneumothorax seen. The cardiac silhouette size is within normal limits . The osseous structures are intact. Mild multilevel degenerative changes of the thoracic spine are noted. IMPRESSION: Minimal left basilar subsegmental atelectasis, otherwise no acute cardiopulmonary proces s.
[2018-05-28 14:11] LABS: Creatine Kinase 169 U/L (30-135)
[2018-05-28 14:23] LABS: Creatine Kinase MB 1.5 ng/mL (0.0-2.4); Troponin I <0.012 ng/mL (0.000-0.034)
[2018-05-28] MEDS ORDERED: NITROGLYCERIN SL TABS 0.4 MG TAB SUBLINGUAL PRN (14:43)
[2018-05-28] MEDS ORDERED: ALPRAZolam 0.25 MG TAB PO PRN (15:25)
--- NOTE | 2018-05-28 15:25 | P.HPIM ---
History of Present Illness H&P Date: 05/28/18 Chief Complaint: chest pain and palpitation. This is a 52-year-old female in my patient with a previous medical history significant for hypertension and hypertensive cardiovascular disease, hyperlipidemia, ALLERGIC rhinitis, significant spondylosis of the lumbar spine status post epidural injection as well as radial frequency ablation with anxiety and depressive disorder was recently taken off her valsartan due to national plan to remove the medication for the market due to contamination in [place], patient was placed on losartan 50/12.5 mg orally once every day and she developed to have increased palpitation as well as shortness of breath she was at work today and was. Hot and she developed to have a significant palpitation and significant chest pain she called her sister who works in the hospital who called her and he brought her to the ER at [facility] and EKG that showed normal sinus rhythm with no acute ischemic changes, cardiac enzymes are negative however because of the presentation she was admitted to the hospital for evaluation. Review of Systems Constitutional: Reports weight gain, Denies chronic pain, Denies lethargy, Denies weight loss Eyes: denies blurred vision, denies bulging eye, denies decreased vision Ears: deny: decreased hearing Ears, nose, mouth and throat: Denies dysphagia, Denies neck lump, Denies swelling in throat, Denies sore throat Cardiovascular: Reports chest pain, Reports decreased exercise tolerance, Reports dyspnea on exertion, Reports high blood pressure, Reports palpitations, Reports rapid heart beat, Reports shortness of breath, Denies syncope Respiratory: Denies congestion, Denies cough, Denies cough with sputum, Denies home oxygen, Denies sleep apnea, Denies snoring, Denies wheezing Gastrointestinal: Denies abdominal pain, Denies BRBPR, Denies excessive gas, Denies heartburn, Denies melena, Denies nausea, Denies vomiting Genitourinary: Denies dysuria, Denies hematuria Musculoskeletal: Denies myalgias Musculoskeletal: absent: ankle pain, ankle stiffness, ankle swelling, elbow pain , elbow stiffness, elbow swelling, foot pain, foot stiffness, foot swelling, hand pain, hand stiffness, hand swelling, hip pain, hip stiffness, hip swelling , knee pain, knee stiffness, knee swelling, shoulder pain, shoulder stiffness, shoulder swelling, wrist pain, wrist stiffness, wrist swelling Integumentary: Denies pruritus, Denies rash Neurological: Denies numbness, Denies weakness Psychiatric: Reports anxiety, Reports depression, Denies sadness/tearfulness, Denies sleep disturbances, Denies suicidal ideation Endocrine: Denies fatigue, Denies weight change Past Medical History Past Medical History: Fibromyalgia, Hyperlipidemia, Hypertension, Osteoarthritis (OA) Additional Past Medical History / Comment(s): BACK PAIN History of Any Multi-Drug Resistant Organisms: None Reported Past Surgical History: Adenoidectomy, Back Surgery, Cholecystectomy, Tonsillectomy Additional Past Surgical History / Comment(s): D & C , thyroid - CYST REMOVED, pain clinic procedures, BACK SURGERY,ARTHROSCOPIC RT HIP, endometrial biopsy Past Anesthesia/Blood Transfusion Reactions: No Reported Reaction Past Psychological History: Anxiety, Depression Smoking Status: Former smoker (patient used to smoke a pack every day she smoked for 35 years quit about 4 years ago.) Past Alcohol Use History: None Reported Past Drug Use History: None Reported - Past Family History Daughter(s) Family Medical History: Cancer Additional Family Medical History / Comment(s): THYROID CANCER Mother Family Medical History: COPD (mother at age of 60 from COPD.) Father Family Medical History: No Reported History (father is 76-year-old major medical problems.) Sister(s) Family Medical History: No Reported History (patient has 2 sisters no major medical problems.) Son(s) Family Medical History: No Reported History (patient has one son no major medical problems.) Medications and Allergies Home Medications Medication Instructions Recorded Confirmed Type ALPRAZolam [Xanax] 0.25 mg PO HS PRN 03/26/14 05/28/18 History HYDROcodone/APAP 10-325MG [Ewen 1 tab PO Q12H 03/26/14 05/28/18 History 10-325] PARoxetine HCL [Paxil] 60 mg PO HS 03/26/14 05/28/18 History Etodolac [Lodine] 400 mg PO BID 12/21/14 05/28/18 History Pregabalin [Lyrica] 75 mg PO BID 04/12/16 05/28/18 History Cyclobenzaprine [Flexeril] 10 mg PO BID 12/01/17 05/28/18 History Losartan-Hctz 50-12.5 mg [Hyzaar 1 tab PO DAILY 05/28/18 05/28/18 History 50-12.5] Allergies Allergy/AdvReac Type Severity Reaction Status Date / Time shellfish derived Allergy Itching Verified 05/28/18 13:21 and Swelling Physical Exam Vitals: Vital Signs Temp Pulse Pulse Resp BP Pulse Ox 05/28/18 15:13 81 18 143/67 98 05/28/18 13:37 87 18 157/78 99 05/28/18 13:31 82 05/28/18 13:17 98.1 F 98 18 148/87 98 Intake and Output 05/28/18 05/28/18 05/28/18 06:59 14:59 22:59 Other: Weight 93.44 kg - Constitutional General appearance: average body habitus, no acute distress - EENT Eyes: anicteric sclerae, EOMI, PERRLA, dentition normal, no ptosis, no scleral icterus, normal appearance ENT: hearing grossly normal, NA/AT, normal oropharynx, no thrush Ears: bilateral: normal - Neck Neck: no lymphadenopathy, normal ROM, no rigidity, no stridor, no thyromegaly Carotids: bilateral: upstroke normal Thyroid: bilateral: normal size - Respiratory Respiratory: bilateral: diminished, negative: dullness, rales, rhonchi, wheezing , prolonged expiration - Cardiovascular Rhythm: regular Heart sounds: normal: S1, S2 Abnormal Heart Sounds: systolic murmur, no S3 Gallop - Gastrointestinal General gastrointestinal: normal bowel sounds, soft, no splenomegaly, no tenderness, no umbilical hernia - Integumentary Integumentary: normal, normal turgor - Neurologic Neurologic: CNII-XII intact - Musculoskeletal Musculoskeletal: strength equal bilaterally - Psychiatric Psychiatric: A&O x's 3, appropriate affect, intact judgment & insight Results CBC & Chem 7: 05/28/18 13:33 05/28/18 13:33 Labs: Abnormal Lab Results - Last 24 Hours (Table) 05/28/18 05/28/18 Range/Units 13:33 13:33 AST 39 H (14-36) U/L Total Creatine Kinase 169 H (30-135) U/L Thrombosis Risk Factor Assmnt - DVT/VTE Prophylaxis DVT/VTE Prophylaxis: Pharmacologic Prophylaxis ordered, Mechanical Prophylaxis ordered Assessment and Plan Assessment: Assessment and plan: 1. Chest pain with palpitation neck likely related to the heat and the recent change in her medication. We will keep in the hospital for observation start the patient on aspirin 325 mg orally once every day, cardiac enzymes 3 every 8 hours, echogram will be done, cardiology consultation for stress test tomorrow morning. 2. Hypertension and hypertensive cardiovascular disease. Continue losartan 50/ 12.5 mg orally once every day. 3. Hyperlipidemia. Continue Zinacef and 20 mg at bedtime. 4. Spondylosis of the lumbar spine post epidural injections with Radiofrequency ablation. Continue patient on Lyrica 75 mg orally twice every day, hold Lodine him a continue with her Ewen 10/325 mg once every 12 hours as needed. 5. Anxiety disorder. Continue Xanax 0.25 mg orally once every day. 6. Depressive disorder. Continue patient on paroxetine 40 mg orally once every day. 7. Dysfunctional uterine bleeding. She is on Provera cycles every 2 weeks. 8. DVT prophylaxis. Continue heparin 5000 units every 8 hours. 9. GI prophylaxis. Continue Pepcid. 10. Observation. 11. Full code.
[2018-05-28] MEDS: HYDROcodone/APAP 10-325MG 1 EACH TAB PO SCH (15:51)
[2018-05-28] MEDS: HEPARIN SODIUM,PORCINE 5,000 UNIT/ML 1 ML VIAL SQ SCH (16:15)
[2018-05-28] MEDS: NITROGLYCERIN OINT 1 INCH/GM PACKET TOPICAL SCH (19:08)
[2018-05-28 20:37] LABS: Creatine Kinase 141 U/L (30-135)
[2018-05-28 20:51] LABS: Creatine Kinase MB 1.2 ng/mL (0.0-2.4); Troponin I <0.012 ng/mL (0.000-0.034)
[2018-05-28] MEDS ORDERED: PARoxetine 20 MG TAB PO SCH (21:00)
[2018-05-28] MEDS: CYCLOBENZAPRINE 10 MG TAB PO SCH (21:38)
[2018-05-28] MEDS: PREGABALIN 75 MG CAP PO SCH (21:38)
[2018-05-29] MEDS: NITROGLYCERIN OINT 1 INCH/GM PACKET TOPICAL SCH ×2 (00:21→04:15)
[2018-05-29] MEDS: HEPARIN SODIUM,PORCINE 5,000 UNIT/ML 1 ML VIAL SQ SCH ×2 (00:24→11:09)
[2018-05-29 02:42] LABS: Creatine Kinase 118 U/L (30-135)
[2018-05-29] MEDS: HYDROcodone/APAP 10-325MG 1 EACH TAB PO SCH (02:54)
[2018-05-29 02:55] LABS: Troponin I <0.012 ng/mL (0.000-0.034)
[2018-05-29] MEDS ORDERED: ALPRAZolam 0.25 MG TAB PO STA (05:07)
[2018-05-29 07:42] VITALS: RESP 18
[2018-05-29 07:47] LABS: Basophils % (A) 1 %; Eosinophils # (A) 0.2 k/uL (0-0.7); Eosinophils % (A) 3 %; HCT 37.8 % (34.0-46.0); HGB 12.4 gm/dL (11.4-16.0); Lymphocytes # (A) 2.3 k/uL (1.0-4.8); Lymphocytes % (A) 44 %; MCH 27.9 pg (25.0-35.0); MCHC 32.8 g/dL (31.0-37.0); MCV 85.1 fL (80.0-100.0); Monocytes # (A) 0.3 k/uL (0-1.0); Monocytes % (A) 6 %; Neutrophils # (A) 2.2 k/uL (1.3-7.7); Neutrophils % (A) 43 %; Platelet Count 301 k/uL (150-450); RBC 4.44 m/uL (3.80-5.40); RDW 14.3 % (11.5-15.5); WBC 5.2 k/uL (3.8-10.6)
[2018-05-29 08:02] LABS: Calcium 9.3 mg/dL (8.4-10.2); Magnesium 2.1 mg/dL (1.6-2.3)
[2018-05-29] MEDS ORDERED: ASPIRIN 325 MG TAB PO SCH (09:00)
[2018-05-29] MEDS ORDERED: FAMOTIDINE 20 MG TAB PO SCH (09:00)
[2018-05-29] MEDS ORDERED: ASPIRIN 81 MG PO SCH (09:00)
[2018-05-29] MEDS ORDERED: LOSARTAN-HCTZ 50-12.5 MG 1 EACH TAB PO SCH (09:00)
[2018-05-29] MEDS ORDERED: DOBUTamine DRIP for NUC MED 500 MG in DEXTROSE/WATER 1 250ML.BAG IV ONE (09:12)
--- NOTE | 2018-05-29 10:38 | P.CRDCN ---
History of Present Illness History of present illness: This is a pleasant 52-year-old female past medical history significant for hypertension, dyslipidemia and fibromyalgia. She quit smoking 4 years ago. 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 Most recent stress test was performed in 2004 prior to back surgery and she states at that time it was unremarkable and normal. We've been asked to see her in consultation for symptoms of chest pain. She complains of shortness of breath, chest tightness and palpitations since last week Sunday. The pain is intermittent in nature. Seems to be more evident with exertion. Radiation up into the left neck and jaw with some odd sensations to the left arm as well. Denies dizziness, nausea, vomiting or diaphoresis. She states last Sunday she changed her blood pressure medication from valsartan to losartan. Unsure if there is any relation but she does feel as though his symptoms started after she started new medication. She denies symptoms of dizziness, nausea, vomiting or diaphoresis. At the time of my exam she is seen resting comfortably in bed in no acute distress and is chest pain- free. EKG reveals sinus mechanism with no acute ST or T-wave abnormalities. Chest x-ray reveals left basilar atelectasis, minimal. Laboratory data reviewed, cardiac enzymes negative 3, proBNP 27, hemoglobin 12.4, platelets 301, sodium 138, potassium 4, creatinine 0.88, LDL 114, HDL 51, TSH 1.77. Current cardiac medications include losartan/HCTZ 50/12.5 mg daily. She also takes Lyrica, [place], Paxil, Lodine, Flexeril and Xanax. Review of Systems At the time of my exam: CONSTITUTIONAL: Denies fever. Denies chills. EYES: Denies blurred vision. Denies vision changes. Denies eye pain. EARS, NOSE, MOUTH & THROAT: Denies headache. Denies sore throat. Denies ear pain. CARDIOVASCULAR: Denies chest pain. Denies shortness of breath. Denies orthopnea. Denies PND. Denies palpitations. RESPIRATORY: Denies cough. GASTROINTESTINAL: Denies abdominal pain. Denies diarrhea. Denies constipation. Denies nausea. Denies vomiting. MUSCULOSKELETAL: Denies myalgias. INTEGUMENTARY: Denies pruitis. Denies rash. NEUROLOGIC: Denies numbness. Denies tingling. Denies weakness. PSYCHIATRIC: Denies anxiety. Denies depression. ENDOCRINE: Denies fatigue. Denies weight change. Denies polydipsia. Denies polyurina. GENITOURINARY: Denies burning, hematuria or urgency with micturation. HEMATOLOGIC: Denies history of anemia. Denies bleeding. Past Medical History Past Medical History: Fibromyalgia, Hyperlipidemia, Hypertension, Osteoarthritis (OA) Additional Past Medical History / Comment(s): BACK PAIN. pt had a pane vaccine but not sure of date,underwriter unable to verify at time of admit-please f/u w/ dr office in am. History of Any Multi-Drug Resistant Organisms: None Reported Past Surgical History: Adenoidectomy, Back Surgery, Cholecystectomy, Tonsillectomy Additional Past Surgical History / Comment(s): D & C , thyroid - CYST REMOVED, pain clinic procedures, BACK SURGERY,ARTHROSCOPIC RT HIP, endometrial biopsy Past Anesthesia/Blood Transfusion Reactions: No Reported Reaction Smoking Status: Former smoker - Past Family History Daughter(s) Family Medical History: Cancer Additional Family Medical History / Comment(s): THYROID CANCER Father Family Medical History: No Reported History Sister(s) Family Medical History: No Reported History Son(s) Family Medical History: No Reported History Mother Family Medical History: COPD Medications and Allergies Home Medications Medication Instructions Recorded Confirmed Type ALPRAZolam [Xanax] 0.25 mg PO HS PRN 03/26/14 05/28/18 History HYDROcodone/APAP 10-325MG [[place] 1 tab PO Q12H 03/26/14 05/28/18 History 10-325] PARoxetine HCL [Paxil] 60 mg PO HS 03/26/14 05/28/18 History Etodolac [Lodine] 400 mg PO BID 12/21/14 05/28/18 History Pregabalin [Lyrica] 75 mg PO BID 04/12/16 05/28/18 History Cyclobenzaprine [Flexeril] 10 mg PO BID 12/01/17 05/28/18 History Losartan-Hctz 50-12.5 mg [Hyzaar 1 tab PO DAILY 05/28/18 05/28/18 History 50-12.5] Allergies Allergy/AdvReac Type Severity Reaction Status Date / Time shellfish derived Allergy Itching Verified 05/28/18 13:21 and Swelling Physical Exam Vitals: Vital Signs Temp Pulse Pulse Resp BP BP Pulse Ox 05/29/18 04:00 16 05/29/18 03:53 98.5 F 83 16 113/74 96 05/29/18 00:00 16 05/28/18 22:59 98.3 F 83 16 111/72 97 05/28/18 20:10 97.6 F 84 16 132/77 97 05/28/18 20:00 16 05/28/18 19:55 87 18 132/76 98 05/28/18 19:00 82 18 132/76 97 05/28/18 15:53 81 18 126/73 99 05/28/18 15:13 81 18 143/67 98 05/28/18 13:37 87 18 157/78 99 05/28/18 13:31 82 05/28/18 13:17 98.1 F 98 18 148/87 98 Intake and Output 05/28/18 05/29/18 05/29/18 22:59 06:59 14:59 Other: # Voids 1 Blood pressure 113/74 heart rate 83 afebrile maintaining oxygen saturation on room air GENERAL: This is a 52-year-old female in no apparent distress at the time of my examination. Obese. HEENT: Head is atraumatic, normocephalic. Pupils are equal, round. Sclerae anicteric. Conjunctivae are clear. Mucous membranes of the mouth are moist. Neck is supple. There is no jugular venous distention. No carotid bruit is heard. LUNGS: Clear to auscultation no wheezes, rales or rhonchi. No chest wall tenderness is noted on palpation or with deep breathing. HEART: Regular rate and rhythm without murmurs, rubs or gallops. S1 and S2 heard. ABDOMEN: Soft, nontender. Bowel sounds are heard. No organomegaly noted. EXTREMITIES: No evidence of peripheral edema and no calf tenderness noted. VASCULAR: Radial and dorsalis pedis pulses palpated, no evidence of clubbing. NEUROLOGIC: Patient is awake, alert and oriented x3. Results 05/29/18 06:53 05/29/18 06:53 Cardiac Enzymes 05/28/18 05/28/18 05/28/18 Range/Units 13:33 13:33 13:33 WBC 7.1 (3.8-10.6) k/uL RBC 4.75 (3.80-5.40) m/uL Hgb 13.4 (11.4-16.0) gm/dL Hct 40.3 (34.0-46.0) % MCV 84.8 (80.0-100.0) fL MCH 28.3 (25.0-35.0) pg MCHC 33.4 (31.0-37.0) g/dL RDW 14.4 (11.5-15.5) % Plt Count 313 (150-450) k/uL Neutrophils % 56 % Lymphocytes % 32 % Monocytes % 6 % Eosinophils % 3 % Basophils % 0 % Neutrophils # 4.0 (1.3-7.7) k/uL Lymphocytes # 2.3 (1.0-4.8) k/uL Monocytes # 0.5 (0-1.0) k/uL Eosinophils # 0.2 (0-0.7) k/uL Basophils # 0.0 (0-0.2) k/uL PT (9.0-12.0) sec INR (<1.2) APTT (22.0-30.0) sec D-Dimer (<0.60) mg/L FEU Sodium 139 (137-145) mmol/L Potassium 3.9 (3.5-5.1) mmol/L Chloride 106 (98-107) mmol/L Carbon Dioxide 22 (22-30) mmol/L Anion Gap 11 mmol/L BUN 9 (7-17) mg/dL Creatinine 0.77 (0.52-1.04) mg/dL Est GFR (CKD-EPI)AfAm >90 (>60 ml/min/1.73 sqM) Est GFR (CKD-EPI)NonAf 88 (>60 ml/min/1.73 sqM) Glucose 88 (74-99) mg/dL Calcium 9.7 (8.4-10.2) mg/dL Magnesium 2.1 (1.6-2.3) mg/dL Total Bilirubin 0.5 (0.2-1.3) mg/dL AST 39 H (14-36) U/L ALT 23 (9-52) U/L Alkaline Phosphatase 78 (38-126) U/L Total Creatine Kinase 169 H (30-135) U/L CK-MB (CK-2) 1.5 (0.0-2.4) ng/mL CK-MB (CK-2) Rel Index 0.9 Troponin I <0.012 (0.000-0.034) ng/mL NT-Pro-B Natriuret Pep pg/mL Total Protein 7.2 (6.3-8.2) g/dL Albumin 4.5 (3.5-5.0) g/dL 05/28/18 05/28/18 05/28/18 Range/Units 13:33 13:33 19:47 WBC (3.8-10.6) k/uL RBC (3.80-5.40) m/uL Hgb (11.4-16.0) gm/dL Hct (34.0-46.0) % MCV (80.0-100.0) fL MCH (25.0-35.0) pg MCHC (31.0-37.0) g/dL RDW (11.5-15.5) % Plt Count (150-450) k/uL Neutrophils % % Lymphocytes % % Monocytes % % Eosinophils % % Basophils % % Neutrophils # (1.3-7.7) k/uL Lymphocytes # (1.0-4.8) k/uL Monocytes # (0-1.0) k/uL Eosinophils # (0-0.7) k/uL Basophils # (0-0.2) k/uL PT 9.5 (9.0-12.0) sec INR 1.0 (<1.2) APTT 23.0 (22.0-30.0) sec D-Dimer 0.38 (<0.60) mg/L FEU Sodium (137-145) mmol/L Potassium (3.5-5.1) mmol/L Chloride (98-107) mmol/L Carbon Dioxide (22-30) mmol/L Anion Gap mmol/L BUN (7-17) mg/dL Creatinine (0.52-1.04) mg/dL Est GFR (CKD-EPI)AfAm (>60 ml/min/1.73 sqM) Est GFR (CKD-EPI)NonAf (>60 ml/min/1.73 sqM) Glucose (74-99) mg/dL Calcium (8.4-10.2) mg/dL Magnesium (1.6-2.3) mg/dL Total Bilirubin (0.2-1.3) mg/dL AST (14-36) U/L ALT (9-52) U/L Alkaline Phosphatase (38-126) U/L Total Creatine Kinase 141 H (30-135) U/L CK-MB (CK-2) 1.2 (0.0-2.4) ng/mL CK-MB (CK-2) Rel Index 0.9 Troponin I <0.012 (0.000-0.034) ng/mL NT-Pro-B Natriuret Pep 27 pg/mL Total Protein (6.3-8.2) g/dL Albumin (3.5-5.0) g/dL 05/29/18 Range/Units 01:40 WBC (3.8-10.6) k/uL RBC (3.80-5.40) m/uL Hgb (11.4-16.0) gm/dL Hct (34.0-46.0) % MCV (80.0-100.0) fL MCH (25.0-35.0) pg MCHC (31.0-37.0) g/dL RDW (11.5-15.5) % Plt Count (150-450) k/uL Neutrophils % % Lymphocytes % % Monocytes % % Eosinophils % % Basophils % % Neutrophils # (1.3-7.7) k/uL Lymphocytes # (1.0-4.8) k/uL Monocytes # (0-1.0) k/uL Eosinophils # (0-0.7) k/uL Basophils # (0-0.2) k/uL PT (9.0-12.0) sec INR (<1.2) APTT (22.0-30.0) sec D-Dimer (<0.60) mg/L FEU Sodium (137-145) mmol/L Potassium (3.5-5.1) mmol/L Chloride (98-107) mmol/L Carbon Dioxide (22-30) mmol/L Anion Gap mmol/L BUN (7-17) mg/dL Creatinine (0.52-1.04) mg/dL Est GFR (CKD-EPI)AfAm (>60 ml/min/1.73 sqM) Est GFR (CKD-EPI)NonAf (>60 ml/min/1.73 sqM) Glucose (74-99) mg/dL Calcium (8.4-10.2) mg/dL Magnesium (1.6-2.3) mg/dL Total Bilirubin (0.2-1.3) mg/dL AST (14-36) U/L ALT (9-52) U/L Alkaline Phosphatase (38-126) U/L Total Creatine Kinase 118 (30-135) U/L CK-MB (CK-2) 1.0 (0.0-2.4) ng/mL CK-MB (CK-2) Rel Index 0.8 Troponin I <0.012 (0.000-0.034) ng/mL NT-Pro-B Natriuret Pep pg/mL Total Protein (6.3-8.2) g/dL Albumin (3.5-5.0) g/dL Coagulation 05/28/18 Range/Units 13:33 PT 9.5 (9.0-12.0) sec APTT 23.0 (22.0-30.0) sec CBC 05/28/18 Range/Units 13:33 WBC 7.1 (3.8-10.6) k/uL RBC 4.75 (3.80-5.40) m/uL Hgb 13.4 (11.4-16.0) gm/dL Hct 40.3 (34.0-46.0) % Plt Count 313 (150-450) k/uL Comprehensive Metabolic Panel 05/28/18 Range/Units 13:33 Sodium 139 (137-145) mmol/L Potassium 3.9 (3.5-5.1) mmol/L Chloride 106 (98-107) mmol/L Carbon Dioxide 22 (22-30) mmol/L BUN 9 (7-17) mg/dL Creatinine 0.77 (0.52-1.04) mg/dL Glucose 88 (74-99) mg/dL Calcium 9.7 (8.4-10.2) mg/dL AST 39 H (14-36) U/L ALT 23 (9-52) U/L Alkaline Phosphatase 78 (38-126) U/L Total Protein 7.2 (6.3-8.2) g/dL Albumin 4.5 (3.5-5.0) g/dL Current Medications Generic Name Dose Route Start Last Admin Trade Name Freq PRN Reason Stop Dose Admin Hydrocodone Bitart/Acetaminophen 1 each 05/28/18 15:30 05/29/18 02:54 [place] 10 PO 1 each Q12H GLEN Administration Alprazolam 0.25 mg 05/28/18 15:25 05/28/18 19:07 Xanax PO 0.25 mg HS PRN Administration Anxiety Aspirin 325 mg 05/29/18 09:00 Aspirin PO DAILY GLEN Cyclobenzaprine HCl 10 mg 05/28/18 21:00 05/28/18 21:38 Flexeril PO 10 mg BID GLEN Administration Famotidine 20 mg 05/29/18 09:00 Pepcid PO DAILY GLEN HCTZ/Losartan Potassium 1 each 05/29/18 09:00 Hyzaar 50-12.5 PO DAILY [facility] Heparin Sodium (Porcine) 5,000 unit 05/28/18 16:00 05/29/18 00:24 Heparin SQ 5,000 unit Q8HR GLEN Administration Nitroglycerin 1 inch 05/28/18 18:00 05/29/18 04:15 Nitro-Bid Oint TOPICAL Not Given Q6HR [facility] Nitroglycerin 0.4 mg 05/28/18 14:43 Nitrostat SUBLINGUAL Q5M PRN Chest Pain Paroxetine HCl 60 mg 05/28/18 21:00 05/28/18 21:39 Paxil PO 60 mg HS GLEN Administration Pregabalin 75 mg 05/28/18 21:00 05/28/18 21:38 Lyrica PO 75 mg BID GLEN Administration Intake and Output 05/28/18 05/29/18 05/29/18 22:59 06:59 14:59 Other: # Voids 1 05/28/18 13:33 05/28/18 13:33 Assessment and Plan Assessment: ASSESSMENT Chest pain, atypical. An acute coronary event has been ruled out with no EKG evidence of ischemia and negative cardiac enzymes. Hypertension Dyslipidemia Fibromyalgia Obesity PLAN Obtain 2D echocardiogram and doppler study to assess cardiac structure and function. Perform dobutamine stress echocardiogram to assess for stress induced ischemic changes. Discontinue hyzaar and start her on lisnopril for blood pressure. Symptoms align with change in medications, unlikely to be causing her symptoms however, will see if discontinuing helps. Lifestyle modifications recommended for weight loss and lowering of cholesterol. If stress test is normal she is stable from a cardiac perspective. Thank you kindly for this consultation. Nurse Practitioner note has been reviewed, I agree with a documented findings and plan of care. Patient was seen and examined.
[2018-05-29] MEDS ORDERED: LISINOPRIL 10 MG TAB PO SCH (10:45)
[2018-05-29] MEDS ORDERED: ACETAMINOPHEN TAB 325 MG TAB PO PRN (11:07)
[2018-05-29] MEDS: CYCLOBENZAPRINE 10 MG TAB PO SCH (11:15)
[2018-05-29] MEDS: PREGABALIN 75 MG CAP PO SCH (11:19)
--- NOTE | 2018-05-29 11:26 | ECHOS ---
STRESS ECHOCARDIOGRAM DOBUTAMINE STRESS ECHO DATE OF SERVICE: 05/29/2018 INDICATIONS: Chest pain. MEDICATIONS: BASELINE HEART RATE: 74 BASELINE BLOOD PRESSURE: 119/74 MAXIMUM HEART RATE: 144 MAXIMUM BLOOD PRESSURE: 206/46 85% MPHR: 142 100% MPHR: 167 METS: MAXIMUM STAGE REACHED: TOTAL EXERCISE TIME: CLINICAL INFORMATION: Baseline EKG shows sinus rhythm, normal axis, normal intervals. Patient was given intravenous dobutamine over a period of 9-1/2 minutes as per protocol. Did not have chest pain or diagnostic ST-segment depression. The patient attained 86% of predicted maximal heart rate. Baseline echo shows normal left ventricular size, wall motion and systolic function. Post dobutamine infusion, there is normal hyperdynamic response of all segments of myocardium noted. CONCLUSIONS: 1. Negative stress test by EKG criteria. 2. Negative dobutamine echo. MMARMANDO / ZEFERINON: [id number] /
--- NOTE | 2018-05-29 11:41 | ECHOF ---
Referral Reason:cp, sob MEASUREMENTS -------- HEIGHT: 160.0 cm WEIGHT: 93.4 kg BP: 146/80 RVIDd: 2.7 cm (< 3.3) IVSd: 1.1 cm (0.6 - 1.1) LVIDd: 4.6 cm (3.9 - 5.3) LVPWd: 1.2 cm (0.6 - 1.1) IVSs: 1.5 cm LVIDs: 3.2 cm LVPWs: 1.6 cm LA Diam: 3.6 cm (2.7 - 3.8) LAESV Index (A-L): 24.41 ml/m Ao Diam: 2.9 cm (2.0 - 3.7) AV Cusp: 1.9 cm (1.5 - 2.6) MV EXCURSION: 14.577 mm (> 18.000) MV EF SLOPE: 73 mm/s (70 - 150) EPSS: 0.2 cm MV E Julio: 0.79 m/s MV DecT: 264 ms MV A Julio: 0.94 m/s MV E/A Ratio: 0.84 FINDINGS -------- Sinus rhythm. This was a technically good study. The left ventricular size is normal. There is borderline concentric left ventricular hypertrophy. Overall left ventricular systolic function is normal with, an EF between 60 - 65 %. The right ventricle is normal in size. Normal LA size by volume 22+/-6 ml/m2. The right atrium is normal in size. The aortic valve is trileaflet and appears structurally normal. The mitral valve is normal. The tricuspid valve appears structurally normal. There is no pulmonic regurgitation present. The aortic root size is normal. Normal inferior vena cava with normal inspiratory collapse consistent with estimated right atrial pre ssure of 5 mmHg. There is no pericardial effusion. CONCLUSIONS -------- 1. Sinus rhythm. 2. This was a technically good study. 3. The left ventricular size is normal. 4. There is borderline concentric left ventricular hypertrophy. 5. Overall left ventricular systolic function is normal with, an EF between 60 - 65 %. 6. The right ventricle is normal in size. 7. Normal LA size by volume 22+/-6 ml/m2. 8. The right atrium is normal in size. 9. The aortic valve is trileaflet and appears structurally normal. 10. The mitral valve is normal. 11. The tricuspid valve appears structurally normal. 12. There is no pulmonic regurgitation present. 13. The aortic root size is normal. 14. Normal inferior vena cava with normal inspiratory collapse consistent with estimated right atrial pressure of 5 mmHg. 15. There is no pericardial effusion. WASTEWATER ANALYST: Delisa Busch RDCS
[2018-05-29 11:53] VITALS: BP 124/81; PULSE 90; TEMP 97.8
--- NOTE | 2018-05-29 12:54 | P.DS ---
Providers Date of admission: 05/28/18 14:43 Expected date of discharge: 05/29/18 Attending physician: Margo Fischer Consults: 05/28/18 14:43 Consult Physician Urgent Consulting Provider: [facility] Consult Reason/Comments: Chest pain, palpitations Do you want consulting provider notified?: Yes Primary care physician: Margo Fischer [place] [facility] [employer] [facility] Course: This is a 52-year-old female in my patient with a previous medical history significant for hypertension and hypertensive cardiovascular disease, hyperlipidemia, ALLERGIC rhinitis, significant spondylosis of the lumbar spine status post epidural injection as well as radial frequency ablation with anxiety and depressive disorder was recently taken off her valsartan due to national plan to remove the medication for the market due to contamination in [place], patient was placed on losartan 50/12.5 mg orally once every day and she developed to have increased palpitation as well as shortness of breath she was at work today and was. Hot and she developed to have a significant palpitation and significant chest pain she called her sister who works in the hospital who called her and he brought her to the ER at [facility] and EKG that showed normal sinus rhythm with no acute ischemic changes, cardiac enzymes are negative however because of the presentation she was admitted to the hospital for evaluation. 05/29: Patient has been seen by cardiology and echocardiogram ordered that revealed EF of 60-65% with borderline concentric left ventricular hypertrophy, no pulmonary hypertension. Patient underwent dobutamine stress test which was negative patient was cleared for discharge home. Hyzaar was discontinued and patient placed on lisinopril. Patient is complaining of headache secondary to nitroglycerin patch which is been removed. Patient will be discharged home today in stable condition.. Discharge diagnoses: 1. Chest pain, 2 coronary syndrome has been ruled out. 2. Hypertension and hypertensive cardiovascular disease. 3. Hyperlipidemia. 4. Spondylosis of the lumbar spine post epidural injections with Radiofrequency ablation. 5. Generalizes anxiety disorder. 6. Recurrent depression 7. Dysfunctional uterine bleeding. Discharge plan: Return home Impression and plan of care have been directed as dictated by the signing physician. Mary Kim nurse practitioner acting as scribe for signing physician. Patient Condition at Discharge: Good Plan - Discharge Summary Discharge Rx Participant: Yes New Discharge Prescriptions: New Lisinopril [Zestril] 10 mg PO DAILY #30 tab Discontinued Losartan-Hctz 50-12.5 mg [Hyzaar 50-12.5] 1 tab PO DAILY No Action HYDROcodone/APAP 10-325MG [[employer] 10-325] 1 tab PO Q12H PARoxetine HCL [Paxil] 60 mg PO HS ALPRAZolam [Xanax] 0.25 mg PO HS PRN PRN Reason: Anxiety Etodolac [Lodine] 400 mg PO BID Pregabalin [Lyrica] 75 mg PO BID Cyclobenzaprine [Flexeril] 10 mg PO BID Discharge Medication List ALPRAZolam [Xanax] 0.25 mg PO HS PRN 03/26/14 [History] HYDROcodone/APAP 10-325MG [[employer] 10-325] 1 tab PO Q12H 03/26/14 [History] PARoxetine HCL [Paxil] 60 mg PO HS 03/26/14 [History] Etodolac [Lodine] 400 mg PO BID 12/21/14 [History] Pregabalin [Lyrica] 75 mg PO BID 04/12/16 [History] Cyclobenzaprine [Flexeril] 10 mg PO BID 12/01/17 [History] Lisinopril [Zestril] 10 mg PO DAILY #30 tab 05/29/18 [Rx] Follow up Appointment(s)/Referral(s): Margo Fischer MD [Primary Care Provider] - 1-2 days Osman Ratliff MD [STAFF PHYSICIAN] - 2 Weeks Activity/Diet/Wound Care/Special Instructions: Patient is to return to work on Sunday per Dr. Fischer.
== END 2018-05-29 14:15 | disposition home or self-care (01) ==
LOC: EC 13:13 → 3OBS 14:43
PROVIDERS: ADMIT Internal Medicine; ATTEND Internal Medicine
DX: R07.89 Other chest pain (principal); R00.2 Palpitations; R06.02 Shortness of breath; M79.7 Fibromyalgia; I11.9 Hypertensive heart disease without heart failure; E78.5 Hyperlipidemia, unspecified; M19.90 Unspecified osteoarthritis, unspecified site; M54.9 Dorsalgia, unspecified; M47.816 Spondylosis without myelopathy or radiculopathy, lumbar region; N93.8 Other specified abnormal uterine and vaginal bleeding; F33.9 Major depressive disorder, recurrent, unspecified; F41.1 Generalized anxiety disorder; J30.9 Allergic rhinitis, unspecified; E66.9 Obesity, unspecified; Z68.36 Body mass index [BMI] 36.0-36.9, adult; G44.40 Drug-induced headache, not elsewhere classified, not intractable; T46.3X5A Adverse effect of coronary vasodilators, initial encounter; Z79.899 Other long term (current) drug therapy; Z91.013 Allergy to seafood; Z87.891 Personal history of nicotine dependence; Z92.3 Personal history of irradiation; Z90.49 Acquired absence of other specified parts of digestive tract; Z90.89 Acquired absence of other organs; Z98.890 Other specified postprocedural states; Z80.8 Family history of malignant neoplasm of other organs or systems; Z82.5 Family history of asthma and other chronic lower respiratory diseases
CPT/HCPCS: 99285 ×2; 96372 ×3; 36415; 93005; 93306; 93351; 85379; 83880; 80061; 80053; 80048; 84443; 82550 ×2; 82553 ×2; 83735 ×2; 84484 ×2; 85025 ×2; 85610; 85730; 71046; G0378 ×2; J1250; J1644 ×2

== ENCOUNTER → 2018-11-18 | Outpatient (CLI) | payer BC ==
[2018-11-18 12:17] VITALS: BP 115/75; PULSE 65; RESP 16
--- NOTE | 2018-11-18 13:11 | P.PN ---
Subjective Progress Note Date: 10/18/19 Patient returns for followup for chronic back pain with radiation to bilateral lower extremities s/p multiple laminectomy surgeries. More than one year ago we have done left lumbar RFA and caudal epidural steroid injection with lysis of epidural adhesions, the latter with excellent relief that is still persisting. Patient continues on [place] 10/325 twice a day, Lyrica 75 mg twice a day, Flexeril 10 mg twice a day, Lodine 400 mg twice a day and adjuvant medications for pain from PCP with good relief. Patient denies adverse drug effects from medications. Today, pt denies new-onset weakness, bowel/bladder incontinence, or any other signs or symptoms of cauda equina syndrome. There are no signs of acute intoxication, and no indications of medication diversion or overuse. In addition to above, 13-point review of systems is also negative for chest pain , shortness of breath, changes in vision, changes in hearing, new onset weakness , abdominal pain, diarrhea, extreme fatigue, malaise, fever, skin changes, homicidal or suicidal ideation, or bowel or bladder incontinence. Vital Signs: Reviewed in EMR Gen: WDWN, AAOx3, NAD HEENT: NCAT, EOMI, hearing grossly normal Pulm: resp unlabored Abd: soft, NT, ND Neck: supple, trachea midline ROM in flexion lumbar spine: reduced due to pain ROM in extension lumbar spine: reduced due to pain Lumbar paravertebral tenderness: + Facet loading: ++ SI joint tenderness: + Guanaco's test: + R > L Straight leg raise: + bilateral, RLE at 60 degrees and LLE at 30 degrees Neuro: CN II-XII grossly intact, muscle strength lower extremities PRESERVED, but strength limited due to pain Imaging: Reviewed in EMR Assessment: 1. lumbar PLPS 2. lumbar radiculopathy 3. lumbar spondylosis without myelopathy 4. sacroiliitis Plan: 1. Explanation: Opioid and psychological risk scores were reviewed. Diagnoses , prognoses, and multiple treatment options including but not limited to physical therapy, interventional therapies, adjuvant medical therapies, narcotic medication therapies, and surgery were discussed with the patient and all questions were answered to the patient's satisfaction. 2. Opioid agreement: no narcotics prescribed 3. Counseling: The patient was counseled extensively on BODY MASS INDEX, EXERCISE. Specifically, the patient was instructed regarding the importance of weight loss and exercise in the context of both chronic pain and overall health. 4. Procedures: caudal epidural steroid injection with epidurolysis under fluoroscopy guidance 5. Consultations: None 6. Investigations: None 7. Medications: none prescribed 8. Disposition: f/u for procedure as scheduled PQRS measures: 1-Patient's medications are documented in the chart. 2-Tobacco use is negative 3-Patient has not had a pneumococcal vaccine. 4-Advanced care planning discussed, patient unable to give. 5-Opioid contract NOT signed with the patient as we do not prescribe medications for her. 6-Pain positive, follow-up visit or procedure scheduled 7-Patient's blood pressure measured and documented, and patient will follow up with the primary care due to hypertension. 8-Patient's weight was measured, and body mass index ABOVE the normal limits, and counseling was done. Patient instructed to follow up with PCP. 9-Patient WAS NOT identified as an unhealthy alcohol user.
== END ==
LOC: PNWHC3 11:44
PROVIDERS: ATTEND Specialist
DX: M96.1 Postlaminectomy syndrome, not elsewhere classified (principal); M47.26 Other spondylosis with radiculopathy, lumbar region; M46.1 Sacroiliitis, not elsewhere classified; Z79.899 Other long term (current) drug therapy
CPT/HCPCS: 99211

== ENCOUNTER 2018-12-02 08:12 | Day surgery (SDC) | payer BC ==
[2018-11-28 15:33] VITALS: BMI 36.8
[~2018-12-02 08:12] MED LIST changes: -LACTATED RINGERS 1,000 ML IV SCH; +SODIUM CHLORIDE 0.9% 500 ML 500 ML IV SCH
[2018-12-02 09:12] VITALS: RESP 18; TEMP 98
[2018-12-02] MEDS ORDERED: LACTATED RINGERS 1,000 ML IV ONE (09:30)
[2018-12-02] MEDS ORDERED: LIDOCAINE 1% 20 ML VIAL (10MG/ML) FOR IV START INTRADERMA ONE (09:55)
--- NOTE | 2018-12-02 10:12 | P.PCN ---
Date of Procedure: 12/02/18 Procedure(s) Performed: Description of Procedure: PREOP DIAGNOSIS: Lumbar postlaminectomy syndrome POSTOP DIAGNOSIS: Lumbar postlaminectomy syndrome PROCEDURE=Caudal epidural steroid injection with epidurolysis under fluoroscopic guidance ANESTHESIA= Local with 1% lidocaine 5 ml ,and moderate Sedations with Versed 4 mg and fentanyl 100 g . EBL: Minimal. PROCEDURE INDICATION: The patient with post-laminectomy syndrome with low back pain and radiculopathy radiating down in both legs, here for a caudal epidural steroid injection with epidurolysis. Patient does not use any blood thinning medications. PROCEDURE DESCRIPTION: The patient was seen and identified in the preoperative area. Risks, benefits, complications, and alternatives were discussed with the patient including but not limited to bleeding, infection, nerve damage, incomplete pain relief, and allergic reactions to medications. The patient agreed to proceed with the procedure and signed the consent after all questions were answered. IV was started, and vital signs were stable. Patient was taken to the OR and time out was completed to verify proper patient , procedure, laterality of pain, and allergies. The patient was placed in the prone position on procedure table and a pillow was placed under the abdomen to reduce lumbar lordosis. The lumbosacral area was prepped and draped in the usual sterile fashion. Critical pause was taken. Vital signs were closely monitored during the procedure. Fluoroscopic camera was placed in the lateral view and the anterior-posterior plates of the sacrum were identified with infiltration of the area overlying the sacral hiatus with 1% lidocaine .A 16 gauge RK epidural needle was used to advance through the sacral hiatus into the caudal epidural space. Omnipaque 300 dye 2cc was NOT injected due to shellfish allergy, but the position of the needle was verified to be in the midline with AP view. A Racz catheter was introduced into the epidural space and was advanced towards the L5-S1 interspace under direct fluoroscopic guidance. Multiple passes were made with the catheter for lysis of epidural adhesions. Decadron 20 mg with 2ml of preservative free Lidocaine 1% and 5 ml of preservative free normal saline was injected slowly. The needle and the catheter were withdrawn intact. COMPLICATIONS: None. DISPOSITION / PLANS: The patient was placed in a supine position and transferred to the recovery area in a stable condition for observation and was discharged from the recovery room after meeting discharge criteria. Home discharge instructions given to the patient by the staff. The patient was reexamined prior to discharge and there were no issues. The patient will schedule a follow up in the clinic in 4-6 weeks.
[2018-12-02] MEDS ORDERED: IV FLUID CONTINUATION 1,000 ML IV ONE (10:18)
--- NOTE | 2018-12-02 10:30 | FL ---
Fluoroscopy History: NEEDLE PLACEMENT CAUDAL EPIDURAL STEROID INJECTION, 10 SEC FLUORO, 1 IMAGE SCANNED
[2018-12-02 10:47] VITALS: BP 113/67; PULSE 77
== END 2018-12-02 11:02 | disposition home or self-care (01) ==
LOC: ORPAIN 08:12
PROVIDERS: ATTEND Specialist
DX: M96.1 Postlaminectomy syndrome, not elsewhere classified (principal); Z91.013 Allergy to seafood
CPT/HCPCS: 81025; 62264; J2250; J1030; J3010; C1894; 99152

== ENCOUNTER 2018-12-16 08:48 | Day surgery (SDC) | payer BC ==
[2018-12-12 11:49] VITALS: BMI 36.8
--- NOTE | 2018-12-16 06:48 | P.GSHP ---
History of Present Illness H&P Date: 12/16/18 73-year-old female scheduled for caudal epidural, with epidurogram, and lysis of adhesions. Has a history of chronic back pain with radiation to bilateral lower extremities s/p multiple laminectomy surgeries. She's had lysis of adhesion in the past with excellent relief. VAS today is a 6 out of 10 in severity. Radiating to her lower extremity. CV: Regular rate and rhythm, no peripheral edema. Pulm: resp unlabored Guanaco's test: + R > L Straight leg raise: + bilateral, RLE at 60 degrees and LLE at 30 degrees Past Medical History Past Medical History: Fibromyalgia, Hyperlipidemia, Hypertension, Osteoarthritis (OA) Additional Past Medical History / Comment(s): BACK PAIN. History of Any Multi-Drug Resistant Organisms: None Reported Past Surgical History: Adenoidectomy, Back Surgery, Cholecystectomy, Tonsillectomy Additional Past Surgical History / Comment(s): D & C , thyroid - CYST REMOVED, pain clinic procedures, BACK SURGERY,ARTHROSCOPIC RT HIP, endometrial biopsy Past Anesthesia/Blood Transfusion Reactions: No Reported Reaction Smoking Status: Former smoker - Past Family History Daughter(s) Family Medical History: Cancer Additional Family Medical History / Comment(s): THYROID CANCER Father Family Medical History: No Reported History Sister(s) Family Medical History: No Reported History Son(s) Family Medical History: No Reported History Mother Family Medical History: COPD Medications and Allergies Home Medications Medication Instructions Recorded Confirmed Type HYDROcodone/APAP 10-325MG [[place] 1 tab PO Q12H 03/26/14 12/12/18 History 10-325] PARoxetine HCL [Paxil] 60 mg PO HS 03/26/14 12/12/18 History Etodolac [Lodine] 400 mg PO BID 12/21/14 12/12/18 History Pregabalin [Lyrica] 75 mg PO BID 04/12/16 12/12/18 History Cyclobenzaprine [Flexeril] 10 mg PO BID 12/01/17 12/12/18 History Turmeric Root Extract [Turmeric] 1,500 mg PO DAILY 12/02/18 12/12/18 History Lisinopril [Zestril] 20 mg PO DAILY 12/12/18 12/12/18 History busPIRone HCL 10 mg PO BID 12/12/18 12/12/18 History Allergies Allergy/AdvReac Type Severity Reaction Status Date / Time shellfish derived Allergy Itching Verified 12/12/18 11:40 and Swelling
[2018-12-16] MEDS ORDERED: LIDOCAINE 1% 20 ML VIAL (10MG/ML) FOR IV START INTRADERMA ONE (09:27)
[2018-12-16 09:29] VITALS: TEMP 98.1
[2018-12-16] MEDS ORDERED: LACTATED RINGERS 1,000 ML IV ONE ×3 (09:29→10:34)
--- NOTE | 2018-12-16 10:48 | FL ---
Fluoroscopy INDICATION: Pain FINDINGS: Fluoroscopy time: 23 seconds. Images obtained: 2. IMPRESSIONS: 1. Documentation of fluoroscopy.
[2018-12-16 11:00] VITALS: BP 119/62; PULSE 78; RESP 16
--- NOTE | 2018-12-16 16:56 | P.PCN ---
Date of Procedure: 12/16/18 Description of Procedure: PREOP DIAGNOSIS: Lumbar postlaminectomy syndrome POSTOP DIAGNOSIS: Lumbar postlaminectomy syndrome PROCEDURE: Caudal epidural steroid injection, epidurogram, and with epidurolysis under fluoroscopic guidance ANESTHESIA: Local with 1% lidocaine; moderate sedation with Versed and fentanyl. EBL: Minimal. PROCEDURE INDICATION: The patient with post-laminectomy syndrome with low back pain and radiculopathy radiating down in both legs with the right more so than the left. She does have some noticeable weakness on her right leg and L5 and S1 nerve roots. Plantar flexion on the right significantly reduced compared to left. Patient does not use any blood thinning medications. PROCEDURE DESCRIPTION: The patient was seen and identified in the preoperative area. Risks, benefits, complications, and alternatives were discussed with the patient including but not limited to bleeding, infection, nerve damage, incomplete pain relief, and allergic reactions to medications. The patient agreed to proceed with the procedure and signed the consent after all questions were answered. IV was started, and vital signs were stable. Patient was taken to the OR and time out was completed to verify proper patient , procedure, laterality of pain, and allergies. The patient was placed in the prone position on procedure table and a pillow was placed under the abdomen to reduce lumbar lordosis. The lumbosacral area was prepped and draped in the usual sterile fashion. Critical pause was taken. Vital signs were closely monitored during the procedure. Fluoroscopic camera was placed in the lateral view and the anterior-posterior plates of the sacrum were identified with infiltration of the area overlying the sacral hiatus with 1% lidocaine .A 16 gauge RK epidural needle was used to advance through the sacral hiatus into the caudal epidural space. Omnipaque 240 dye was injected, 1 mL to confirm position, once confirmed, 5 ML's of Omnipaque was then injected to produce an epidurogram that showed filling defect on the right L5-S1. 6 ML's of 0.5% lidocaine were then injected, and then A Racz catheter was introduced into the epidural space and was advanced towards the L5- S1 interspace under direct fluoroscopic guidance. Multiple passes were made with the catheter for lysis of epidural adhesions. After lysis of adhesion, 3 ML's of Omnipaque were then injected which showed improved filling on the right L5-S1 space. Kenalog 80 mg with 2ml of preservative free Lidocaine 1% and 5 ml of preservative free normal saline was injected slowly. The needle and the catheter were withdrawn intact. COMPLICATIONS: None, tolerated procedure well DISPOSITION / PLANS: The patient was placed in a supine position and transferred to the recovery area in a stable condition for observation and was discharged from the recovery room after meeting discharge criteria. Home discharge instructions given to the patient by the staff. The patient was reexamined prior to discharge and there were no issues. The patient will keep procedure in 8 weeks.
== END 2018-12-16 11:11 | disposition home or self-care (01) ==
LOC: ORPAIN 08:48
PROVIDERS: ATTEND Anesthesiology
DX: M96.1 Postlaminectomy syndrome, not elsewhere classified (principal); G89.29 Other chronic pain; M54.10 Radiculopathy, site unspecified; M79.7 Fibromyalgia; E78.5 Hyperlipidemia, unspecified; I10 Essential (primary) hypertension; M19.90 Unspecified osteoarthritis, unspecified site; Z79.899 Other long term (current) drug therapy; Z91.013 Allergy to seafood
CPT/HCPCS: 81025; 62264; J2250; J3301; J2001; J3010; Q9966; C1894; 62323; 99152

== ENCOUNTER 2019-01-07 09:53 | Emergency (ER) | payer BC ==
[2019-01-07 10:03] VITALS: RESP 18; TEMP 97.5
[2019-01-07] MEDS ORDERED: NITROGLYCERIN OINT 1 INCH/GM PACKET TOPICAL STA (10:19)
[2019-01-07] MEDS ORDERED: ASPIRIN 81 MG PO STA (10:19)
--- NOTE | 2019-01-07 10:24 | ED ---
General Adult HPI - General Chief complaint: Chest Pain Stated complaint: dizzy, nausea, headache Time Seen by Provider: 01/07/19 10:00 Source: patient, RN notes reviewed Mode of arrival: ambulatory Limitations: no limitations - History of Present Illness Initial comments: This is a 53-year-old female who presents emergency Department complaining of a variety of symptoms. Patient states she has chest pain which she states is a tightness and last usually 2-3 seconds and shortness of breath. The last couple of weeks she states the pain is, gone but never last very long. Patient states the reason she came in today and not a couple of weeks ago is because since yesterday she's been lightheaded and dizzy. Patient states she hasn't had no recent fever chills or cough. Patient states he is mildly lightheaded. Patient states she has been extremely tired lately. Patient denies any numbness or weakness. Patient denies any near syncopal episode. Patient denies any abdominal pain patient denies nausea vomiting diarrhea. Patient denies any swelling to the legs or calf tenderness. - Related Data Home Medications Medication Instructions Recorded Confirmed HYDROcodone/APAP 10-325MG [[place] 1 tab PO Q12H 03/26/14 01/07/19 10-325] PARoxetine HCL [Paxil] 60 mg PO HS 03/26/14 01/07/19 Etodolac [Lodine] 400 mg PO BID 12/21/14 01/07/19 Pregabalin [Lyrica] 75 mg PO BID 04/12/16 01/07/19 Cyclobenzaprine [Flexeril] 10 mg PO BID 12/01/17 01/07/19 Turmeric Root Extract [Turmeric] 500 mg PO DAILY 12/02/18 01/07/19 busPIRone HCL 10 mg PO BID 12/12/18 01/07/19 Lisinopril 20 mg PO DAILY 01/07/19 01/07/19 Allergies Allergy/AdvReac Type Severity Reaction Status Date / Time shellfish derived Allergy Itching Verified 01/07/19 10:21 and Swelling Review of Systems ROS Statement: Those systems with pertinent positive or pertinent negative responses have been documented in the HPI. ROS Other: All systems not noted in ROS Statement are negative. Past Medical History Past Medical History: Fibromyalgia, Hyperlipidemia, Hypertension, Osteoarthritis (OA) Additional Past Medical History / Comment(s): BACK PAIN. History of Any Multi-Drug Resistant Organisms: None Reported Past Surgical History: Adenoidectomy, Back Surgery, Cholecystectomy, Tonsillectomy Additional Past Surgical History / Comment(s): D & C , thyroid - CYST REMOVED, pain clinic procedures, BACK SURGERY,ARTHROSCOPIC RT HIP, endometrial biopsy Past Anesthesia/Blood Transfusion Reactions: No Reported Reaction Past Psychological History: Anxiety, Depression Smoking Status: Former smoker Past Alcohol Use History: None Reported Past Drug Use History: None Reported - Past Family History Daughter(s) Family Medical History: Cancer Additional Family Medical History / Comment(s): THYROID CANCER Father Family Medical History: No Reported History Sister(s) Family Medical History: No Reported History Son(s) Family Medical History: No Reported History Mother Family Medical History: COPD General Exam - General Exam Comments Initial Comments: GENERAL: Patient is well-developed and well-nourished. Patient is nontoxic and well- hydrated and is in mild distress. ENT: Neck is soft and supple. No significant lymphadenopathy is noted. Oropharynx is clear. Moist mucous membranes. Neck has full range of motion without eliciting any pain. EYES: The sclera were anicteric and conjunctiva were pink and moist. Extraocular movements were intact and pupils were equal round and reactive to light. Eyelids were unremarkable. PULMONARY: Unlabored respirations. Good breath sounds bilaterally. No audible rales rhonchi or wheezing was noted. CARDIOVASCULAR: There is a regular rate and rhythm without any murmurs gallops or rubs. ABDOMEN: Soft and nontender with normal bowel sounds. SKIN: Skin is clear with no lesions or rashes and otherwise unremarkable. NEUROLOGIC: Patient is alert and oriented 3 cranial nerves II through XII are grossly intact motor and sensory are also intact. MUSCULOSKELETAL: Normal extremities with adequate strength and full range of motion. No lower extremity swelling or edema. No calf tenderness. LYMPHATICS: No significant lymphadenopathy is noted PSYCHIATRIC: Normal psychiatric evaluation. Limitations: no limitations Course Vital Signs 01/07/19 10:00 Temperature 97.5 F L Pulse Rate 79 Respiratory 18 Rate Blood Pressure 121/62 O2 Sat by Pulse 98 Oximetry Medical Decision Making - Medical Decision Making EKG shows normal sinus rhythm at 76 bpm KS interval is on a 26 dresses 74 QT interval 388 QTC is 436 per patient's EKG shows no ST segment elevation or depression or T wave abnormalities are noted. CT of the chest was done because the d-dimer was mildly elevated. CT of the chest shows no PE. I will back into reevaluate the patient she was not having any chest pain currently and denied being short of breath while lying in bed. I spoke with Dr. Fischer he wanted to follow-up the patient is an outpatient at his office on . Patient was agreeable to this. Patient was comfortable going home. - Lab Data Result diagrams: 01/07/19 10:35 01/07/19 10:35 Lab Results 01/07/19 01/07/19 01/07/19 Range/Units 10:35 10:35 10:35 WBC 6.1 (3.8-10.6) k/uL RBC 5.14 (3.80-5.40) m/uL Hgb 14.3 (11.4-16.0) gm/dL Hct 46.0 (34.0-46.0) % MCV 89.6 (80.0-100.0) fL MCH 27.9 (25.0-35.0) pg MCHC 31.1 (31.0-37.0) g/dL RDW 13.6 (11.5-15.5) % Plt Count 245 (150-450) k/uL Neutrophils % 69 % Lymphocytes % 21 % Monocytes % 6 % Eosinophils % 2 % Basophils % 1 % Neutrophils # 4.2 (1.3-7.7) k/uL Lymphocytes # 1.3 (1.0-4.8) k/uL Monocytes # 0.3 (0-1.0) k/uL Eosinophils # 0.1 (0-0.7) k/uL Basophils # 0.0 (0-0.2) k/uL PT 9.3 (9.0-12.0) sec INR 0.8 (<1.2) APTT 23.0 (22.0-30.0) sec D-Dimer 0.63 H (<0.60) mg/L FEU Sodium 138 (137-145) mmol/L Potassium 4.4 (3.5-5.1) mmol/L Chloride 107 (98-107) mmol/L Carbon Dioxide 24 (22-30) mmol/L Anion Gap 7 mmol/L BUN 14 (7-17) mg/dL Creatinine 0.73 (0.52-1.04) mg/dL Est GFR (CKD-EPI)AfAm >90 (>60 ml/min/1.73 sqM) Est GFR (CKD-EPI)NonAf >90 (>60 ml/min/1.73 sqM) Glucose 99 (74-99) mg/dL Calcium 9.0 (8.4-10.2) mg/dL Magnesium 2.2 (1.6-2.3) mg/dL Total Bilirubin 0.4 (0.2-1.3) mg/dL AST 17 (14-36) U/L ALT 30 (9-52) U/L Alkaline Phosphatase 66 (38-126) U/L Troponin I (0.000-0.034) ng/mL NT-Pro-B Natriuret Pep pg/mL Total Protein 7.1 (6.3-8.2) g/dL Albumin 4.3 (3.5-5.0) g/dL 01/07/19 01/07/19 Range/Units 10:35 10:35 WBC (3.8-10.6) k/uL RBC (3.80-5.40) m/uL Hgb (11.4-16.0) gm/dL Hct (34.0-46.0) % MCV (80.0-100.0) fL MCH (25.0-35.0) pg MCHC (31.0-37.0) g/dL RDW (11.5-15.5) % Plt Count (150-450) k/uL Neutrophils % % Lymphocytes % % Monocytes % % Eosinophils % % Basophils % % Neutrophils # (1.3-7.7) k/uL Lymphocytes # (1.0-4.8) k/uL Monocytes # (0-1.0) k/uL Eosinophils # (0-0.7) k/uL Basophils # (0-0.2) k/uL PT (9.0-12.0) sec INR (<1.2) APTT (22.0-30.0) sec D-Dimer (<0.60) mg/L FEU Sodium (137-145) mmol/L Potassium (3.5-5.1) mmol/L Chloride (98-107) mmol/L Carbon Dioxide (22-30) mmol/L Anion Gap mmol/L BUN (7-17) mg/dL Creatinine (0.52-1.04) mg/dL Est GFR (CKD-EPI)AfAm (>60 ml/min/1.73 sqM) Est GFR (CKD-EPI)NonAf (>60 ml/min/1.73 sqM) Glucose (74-99) mg/dL Calcium (8.4-10.2) mg/dL Magnesium (1.6-2.3) mg/dL Total Bilirubin (0.2-1.3) mg/dL AST (14-36) U/L ALT (9-52) U/L Alkaline Phosphatase (38-126) U/L Troponin I <0.012 (0.000-0.034) ng/mL NT-Pro-B Natriuret Pep 22 pg/mL Total Protein (6.3-8.2) g/dL Albumin (3.5-5.0) g/dL Disposition Clinical Impression: Lightheaded, Dyspnea Disposition: HOME SELF-CARE Condition: Good Instructions (If sedation given, give patient instructions): Dyspnea (ED), Lightheadedness (ED) Is patient prescribed a controlled substance at d/c from ED?: No Referrals: Margo Fischer MD [Primary Care Provider] - 1-2 days Time of Disposition: 12:49
[2019-01-07 10:47] LABS: Basophils % (A) 1 %; Eosinophils # (A) 0.1 k/uL (0-0.7); Eosinophils % (A) 2 %; HGB 14.3 gm/dL (11.4-16.0); Lymphocytes # (A) 1.3 k/uL (1.0-4.8); Lymphocytes % (A) 21 %; MCH 27.9 pg (25.0-35.0); MCHC 31.1 g/dL (31.0-37.0); MCV 89.6 fL (80.0-100.0); Mean Platelet Volume 6.4; Monocytes # (A) 0.3 k/uL (0-1.0); Monocytes % (A) 6 %; Neutrophils # (A) 4.2 k/uL (1.3-7.7); Neutrophils % (A) 69 %; Platelet Count 245 k/uL (150-450); RBC 5.14 m/uL (3.80-5.40); RDW 13.6 % (11.5-15.5); WBC 6.1 k/uL (3.8-10.6)
[2019-01-07 10:59] LABS: ALT 30 U/L (9-52); AST 17 U/L (14-36); Albumin 4.3 g/dL (3.5-5.0); Alkaline Phosphatase 66 U/L (38-126); Anion Gap 7 mmol/L; Blood Urea Nitrogen 14 mg/dL (7-17); Carbon Dioxide 24 mmol/L (22-30); Chloride 107 mmol/L (98-107); Glucose 99 mg/dL (74-99); Magnesium 2.2 mg/dL (1.6-2.3); Potassium 4.4 mmol/L (3.5-5.1); Sodium 138 mmol/L (137-145); Total Bilirubin 0.4 mg/dL (0.2-1.3); Total Protein 7.1 g/dL (6.3-8.2)
--- NOTE | 2019-01-07 11:01 | XR ---
EXAMINATION TYPE: XR chest 2V DATE OF EXAM: 01/07/2019 COMPARISON: Chest x-ray May 28, 2018 HISTORY: Chest pain. TECHNIQUE: Frontal and lateral views of the chest are obtained. FINDINGS: Overlying EKG leads are seen. There is no focal air space opacity, pleural effusion, or pn eumothorax seen. The cardiac silhouette size is within normal limits. The osseous structures are i ntact. Cholecystectomy clips are noted. IMPRESSION: No acute cardiopulmonary process.
[2019-01-07 11:02] LABS: INR 0.8 (<1.2); Prothrombin Time 9.3 sec (9.0-12.0)
[2019-01-07 11:14] LABS: D-Dimer 0.63 mg/L FEU (<0.60)
--- NOTE | 2019-01-07 12:20 | CT ---
EXAMINATION TYPE: CT chest angio for PE DATE OF EXAM: 01/07/2019 COMPARISON: Chest x-ray earlier today HISTORY: dizziness and weakness. Pain. CT DLP: 441.1 mGycm. Automated Exposure Control for Dose Reduction was Utilized. CONTRAST: CTA scan of the thorax is performed with IV Contrast, patient injected with 100 mL of Isovue 370, pul monary embolism protocol. MIP Images are created on CT scanner and reviewed. FINDINGS: LUNGS: Dependent atelectasis bilateral lower lobes is present. There is linear scarring or atelectasi s anterior right midlung. There is some central ground glass opacity bilaterally. No suspicious focal consolidation. No pleural effusion or pneumothorax is seen bilaterally. Tracheobronchial tree is pat ent. No suspicious nodules or masses. MEDIASTINUM: There is satisfactory enhancement of the pulmonary artery and its branches, there is no CT evidence for pulmonary embolism. There are no greater than 1 cm hilar or mediastinal lymph nodes. No cardiomegaly or pericardial effusion is seen. OTHER: Cholecystectomy clips are noted. Mild multilevel spurring in the thoracic spine is seen which is straightened, slight scoliotic curvature is present on coronal images. IMPRESSION: 1. No CT evidence for acute pulmonary embolism. 2. Mild central groundglass opacity raises concern for edema and/or mild fluid overload state. Correl ate clinically. No suspicious focal consolidation noted.
[2019-01-07 12:59] VITALS: BP 131/72; PULSE 0
== END 2019-01-07 13:07 | disposition home or self-care (01) ==
LOC: EC 09:53
DX: R42 Dizziness and giddiness (principal); R06.02 Shortness of breath; R07.89 Other chest pain; M79.7 Fibromyalgia; I10 Essential (primary) hypertension; M19.90 Unspecified osteoarthritis, unspecified site; F32.9 Major depressive disorder, single episode, unspecified; F41.9 Anxiety disorder, unspecified; Z87.891 Personal history of nicotine dependence; Z79.891 Long term (current) use of opiate analgesic; Z79.899 Other long term (current) drug therapy; Z91.013 Allergy to seafood
CPT/HCPCS: 36415; 93005; 85379; 83880; 80053; 83735; 84484; 85025; 85610; 85730; 71046; 71275; 99285; Q9967

== ENCOUNTER 2019-02-10 07:30 | Day surgery (SDC) | payer BC ==
[2019-02-04 15:53] VITALS: BMI 37.5
[2019-02-10 07:48] VITALS: RESP 16; TEMP 97.3
[2019-02-10] MEDS: LACTATED RINGERS 1,000 ML IV SCH ×2 (07:52→08:08)
[2019-02-10] MEDS ORDERED: LIDOCAINE 1% 20 ML VIAL (10MG/ML) FOR IV START INTRADERMA ONE (07:52)
--- NOTE | 2019-02-10 08:28 | P.PCN ---
Date of Procedure: 02/10/19 Procedure(s) Performed: PREOP DIAGNOSIS: Lumbar postlaminectomy syndrome POSTOP DIAGNOSIS: Lumbar postlaminectomy syndrome PROCEDURE=Caudal epidural steroid injection with epidurolysis under fluoroscopic guidance ANESTHESIA= Local with 1% lidocaine 5 ml ,and moderate Sedations with Versed 4 mg and fentanyl 100 g . EBL: Minimal. PROCEDURE INDICATION: The patient with post-laminectomy syndrome with low back pain and radiculopathy radiating down in both legs, here for a caudal epidural steroid injection with epidurolysis. Patient does not use any blood thinning medications. PROCEDURE DESCRIPTION: The patient was seen and identified in the preoperative area. Risks, benefits, complications, and alternatives were discussed with the patient including but not limited to bleeding, infection, nerve damage, incomplete pain relief, and allergic reactions to medications. The patient agreed to proceed with the procedure and signed the consent after all questions were answered. IV was started, and vital signs were stable. Patient was taken to the OR and time out was completed to verify proper patient, procedure, laterality of pain, and allergies. The patient was placed in the prone position on procedure table and a pillow was placed under the abdomen to reduce lumbar lordosis. The lumbosacral area was prepped and draped in the usual sterile fashion. Critical pause was taken. Vital signs were closely monitored during the procedure. Fluoroscopic camera was placed in the lateral view and the anterior-posterior plates of the sacrum were identified with infiltration of the area overlying the sacral hiatus with 1% lidocaine .A 16 gauge RK epidural needle was used to advance through the sacral hiatus into the caudal epidural space. Omnipaque 300 dye 2cc was NOT injected due to shellfish allergy, but the position of the needle was verified to be in the midline with AP view. A Racz catheter was introduced into the epidural space and was advanced towards the L5-S1 interspace under direct fluoroscopic guidance. Multiple passes were made with the catheter for lysis of epidural adhesions. Depo-Medrol 80 mg with 2ml of preservative free Lidocaine 1% and 5 ml of preservative free normal saline was injected slowly. The needle and the catheter were withdrawn intact. COMPLICATIONS: None. DISPOSITION / PLANS: The patient was placed in a supine position and transferred to the recovery area in a stable condition for observation and was discharged from the recovery room after meeting discharge criteria. Home discharge instructions given to the patient by the staff. The patient was reexamined prior to discharge and there were no issues. The patient will schedule a follow up in the clinic in 4-6 weeks.
[2019-02-10] MEDS ORDERED: IV FLUID CONTINUATION 1,000 ML IV ONE (08:30)
--- NOTE | 2019-02-10 08:41 | FL ---
Fluoroscopy History: NEEDLE PLACEMENT 7 sec fluoro, 2 images scanned
[2019-02-10 08:47] VITALS: BP 118/67; PULSE 79
== END 2019-02-10 09:02 | disposition home or self-care (01) ==
LOC: ORPAIN 07:30
PROVIDERS: ATTEND Specialist
DX: M96.1 Postlaminectomy syndrome, not elsewhere classified (principal); G96.12 Meningeal adhesions (cerebral) (spinal); I10 Essential (primary) hypertension; Z91.013 Allergy to seafood
CPT/HCPCS: 81025; 62264; J2250; J1030; J3010; C1894; 62323; 99152

== ENCOUNTER → 2019-02-26 | Outpatient (CLI) | payer BC ==
[2019-02-26 12:19] VITALS: BP 104/70; PULSE 89; RESP 16
--- NOTE | 2019-02-26 12:31 | P.PAINPG ---
Subjective Progress Note Date: 02/26/19 Principal diagnosis: Lumbar spondylosis, myofascial pain syndrome, post laminectomy syndrome This a very pleasant 53-year-old woman with a history of low back pain. She recently has undergone caudal epidural steroid injections with lysis of adhesions. She reports that none of these procedures have significantly improved her pain. She does report that she received benefit and passed from previous radiofrequency ablations. She says her pain is worse when she is at work. She cannot identify any particular movement or behavior that sets off her pain. She denies bowel or bladder dysfunction. She denies lumbar radicular symptoms at this time. Objective - Vital Signs Vital signs: Vital Signs Temp Pulse 89 02/26/19 12:15 Resp 16 02/26/19 12:15 BP 104/70 02/26/19 12:15 Pulse Ox Intake & Output 02/25/19 02/26/19 02/26/19 18:59 06:59 18:59 Weight 94.347 kg - Exam General: The patient is alert and oriented. Patient is not sedated Patient answers all question appropriately. Cardiac: Heart is regular in rate and rhythm Respiratory: Clear to auscultation. No audible wheezes. Abdomen: Soft nontender nondistended. Musculoskeletal: Strength is normal bilaterally. Sensation is normal bilaterally. Straight leg raise is negative bilaterally. She is tender to palpation over her quadratus lumborum muscles bilaterally. Facet loading maneuvers are negative today. Range of motion for spine flexion and extension is within normal limits. Neurological: Reflexes are preserved and symmetric bilaterally. Assessment and Plan (1) Myofascial pain syndrome Current Visit: Yes Status: Acute Code(s): M79.18 - MYALGIA, OTHER SITE SNOMED Code(s): 622570431 (2) Spondylosis of lumbar region without myelopathy or radiculopathy Current Visit: Yes Status: Acute Code(s): M47.816 - SPONDYLOSIS W/O MYELOPATHY OR RADICULOPATHY, LUMBAR REGION SNOMED Code(s): 68533684 (3) Lumbar post-laminectomy syndrome Narrative/Plan: Plan of Care 1. Medications: Patient will continue with medications as prescribed by her physicians. 2. Interventions: We'll schedule patient for bilateral quadratus lumbar trigger point injections 3. Referrals: Patient will be referred for a lumbar spine MRI if these injections do not help her. It is been 6 years since she had her last lumbar spine MRI. 4. Testing: None ordered 5. Follow-up: Bilateral quadratus lumborum trigger point injections without sedation. Current Visit: Yes Status: Acute Code(s): M96.1 - POSTLAMINECTOMY SYNDROME, NOT ELSEWHERE CLASSIFIED SNOMED Code(s): 352956151 PQRS Measure Charge Sheet Measure #130: Documentation of Current Meds in Medical Chart: Patient not eligible for medications to be documented Measure #226: Tobacco Use: Screen & Cessation Intervention: Pt not a tobacco user Measure #111: Pneumonia Vaccination: Pneumococcal vaccine NOT administered or previously given Measure #47: Advance Care Plan: Advance care planning discussed & documented, plan or surrogate given Measure #412: Opioid Treatment Agreement: No documentation of signed opioid treatment agreement Measure #408: Opioid Therapy Follow-up Evaluation: Patient had NO f/u eval minimum every 3 months during opioid therapy Measure #317: Preventitive Care & Scrn High Bld Press & F/U: Normal blood pressure, f/u not required Measure #128: Body Mass Index (BMI) Screening & Follow-up: BMI documented ABOVE normal parameters - f/u documented Measure #131: Pain Assessment & Follow-up: Pain positive & plan documented Measure #431: Unhealthy Alcohol Use Preventative Care & Scrn: Patient not identified as an unhealthy alcohol user PQRS Narrative: Smoking Status Former smoker Do You Want the Pneumonia No Vaccine AT THIS TIME? Blood Pressure 104/70 Pain Intensity [Bilateral 8 Lower Back] Scale Used Numeric (1 - 10) Hx Alcohol Use (MH) No Home Medications: Ambulatory Orders HYDROcodone/APAP 10-325MG [[place] 10-325] 1 tab PO Q12H 03/26/14 PARoxetine HCL [Paxil] 60 mg PO HS 03/26/14 Etodolac [Lodine] 400 mg PO BID 12/21/14 Pregabalin [Lyrica] 75 mg PO BID 04/12/16 Cyclobenzaprine [Flexeril] 10 mg PO BID 12/01/17 Turmeric Root Extract [Turmeric] 1,500 mg PO DAILY 12/02/18 busPIRone HCL 10 mg PO BID 12/12/18 Lisinopril 20 mg PO DAILY 01/07/19 Controlled Substance Measures - Controlled Substance Measures Is patient prescribed a controlled substance at discharge?: No
== END | disposition home or self-care (01) ==
LOC: PNWHC3 11:59
PROVIDERS: ATTEND Pain Medicine Pain Medicine
DX: M47.816 Spondylosis without myelopathy or radiculopathy, lumbar region (principal); M96.1 Postlaminectomy syndrome, not elsewhere classified; M79.18 Myalgia, other site; Z87.891 Personal history of nicotine dependence; Z79.891 Long term (current) use of opiate analgesic; Z79.899 Other long term (current) drug therapy
CPT/HCPCS: 99211

== ENCOUNTER 2019-03-12 06:03 | Day surgery (SDC) | payer BC ==
[2019-03-10 15:33] VITALS: BMI 37.0
[2019-03-12] MEDS ORDERED: LACTATED RINGERS 1,000 ML IV SCH (06:11)
[2019-03-12 06:25] VITALS: TEMP 97.6
[2019-03-12] MEDS ORDERED: LIDOCAINE 1% 20 ML VIAL (10MG/ML) FOR IV START INTRADERMA ONE (06:32)
[2019-03-12] MEDS ORDERED: IV FLUID CONTINUATION 1,000 ML IV ONE ×2 (07:14)
[2019-03-12 07:17] VITALS: PULSE 77
[2019-03-12 07:28] VITALS: BP 125/81; RESP 18
--- NOTE | 2019-03-12 08:41 | P.PCN ---
Date of Procedure: 03/12/19 Procedure(s) Performed: Procedure= trigger point injection in the lumbar paravertebral muscles (quadra tus lumborum, ) total of 4 trigger points injected 2 on the right side and 2 on the left side Preoperative diagnosis= 1-myofascial pain syndrome lumbar area 2-lumbar failed back surgery syndrome 3-lumbar spondylosis with facet arthropathy Postoperative diagnosis=1-myofascial pain syndrome lumbar area 2-lumbar failed back surgery syndrome 3-lumbar spondylosis with facet arthropathy Complication = none Condition= stable Anesthesia= moderate sedation with intravenous Versed 2 mg , and fentanyl 50 micrograms . Indication for the procedure= patient complaining of low back pain , examination was positive for severe tenderness over the lumbar paravertebral muscles, quadratus lumborum bilaterally and patient diagnosed with myofascial pain syndrome she was good candidate for trigger point injection injection. Description of the procedure= procedure risk and benefits discussed with the patient, including but not limited, risk of infection and bleeding, and ALLERGIC reaction to the medication and not complete pain relief and patient agreed with the preceding patient taken to the operating room, placed in prone position or standard monitors applied to the patient then after induction of anesthesia back prepped with chlorhexidine 3 times , using 25-gauge needle, each of the trigger points that is identified in the preop holding area injected with the ropivacaine 0.5% PF , 3 mL injected at each trigger point after negative aspiration using 25-gauge needle and there was no paresthesia during the injection, she tolerated the procedure well without any complications
== END 2019-03-12 07:40 | disposition home or self-care (01) ==
LOC: ORPAIN 06:03
PROVIDERS: ATTEND Specialist
DX: M79.18 Myalgia, other site (principal); M96.1 Postlaminectomy syndrome, not elsewhere classified; M47.816 Spondylosis without myelopathy or radiculopathy, lumbar region; Z88.2 Allergy status to sulfonamides
CPT/HCPCS: 81025; 20552; J2250; J3010; 20553

== ENCOUNTER 2019-03-26 06:50 | Day surgery (SDC) | payer BC ==
[2019-03-24 15:31] VITALS: BMI 37.2
[2019-03-26 07:16] VITALS: RESP 16; TEMP 97.4
[2019-03-26] MEDS ORDERED: LACTATED RINGERS 1,000 ML IV ONE (07:16)
[2019-03-26] MEDS ORDERED: LIDOCAINE 1% 20 ML VIAL (10MG/ML) FOR IV START INTRADERMA ONE (07:17)
[2019-03-26] MEDS ORDERED: IV FLUID CONTINUATION 1,000 ML IV ONE ×2 (07:46)
--- NOTE | 2019-03-26 07:46 | P.PCN ---
Date of Procedure: 03/26/19 Procedure(s) Performed: Procedure= trigger point injection in the lumbar paravertebral muscles (quadratus lumborum, ) total of 4 trigger points injected 2 on the right side and 2 on the left side Preoperative diagnosis= 1-myofascial pain syndrome lumbar area 2-lumbar failed back surgery syndrome 3-lumbar spondylosis with facet arthropathy Postoperative diagnosis=1-myofascial pain syndrome lumbar area 2-lumbar failed back surgery syndrome 3-lumbar spondylosis with facet arthropathy Complication = none Condition= stable Anesthesia= moderate sedation with intravenous Versed 2 mg , and fentanyl 50 micrograms . Indication for the procedure= patient complaining of low back pain , examination was positive for severe tenderness over the lumbar paravertebral muscles, quadratus lumborum bilaterally and patient diagnosed with myofascial pain syndrome she was good candidate for trigger point injection injection. Description of the procedure= procedure risk and benefits discussed with the patient, including but not limited, risk of infection and bleeding, and ALLERGIC reaction to the medication and not complete pain relief and patient agreed with the preceding patient taken to the operating room, placed in prone position or standard monitors applied to the patient then after induction of anesthesia back prepped with chlorhexidine 3 times , using 25-gauge needle, each of the trigger points that is identified in the preop holding area injected with the ropi vacaine 0.5% PF 12 ml mixed with 40 mg of Depo-Medrol ,, 3 mL of the mixture injected at each trigger point after negative aspiration using 25-gauge needle and there was no paresthesia during the injection, she tolerated the procedure well without any complication
[2019-03-26 08:02] VITALS: BP 109/73; PULSE 77
== END 2019-03-26 08:12 | disposition home or self-care (01) ==
LOC: ORPAIN 06:50
PROVIDERS: ATTEND Specialist
DX: M79.18 Myalgia, other site (principal); M96.1 Postlaminectomy syndrome, not elsewhere classified; M47.9 Spondylosis, unspecified
CPT/HCPCS: 81025; 20552; J2250; J1030; J3010; 20553

== ENCOUNTER → 2019-04-10 | Outpatient (CLI) | payer BC ==
[2019-04-10 14:39] VITALS: BP 137/98; PULSE 91; RESP 16
--- NOTE | 2019-04-10 15:26 | P.PN ---
Subjective Progress Note Date: 04/10/19 Lisa is a 53-year-old female presenting for follow-up today. She has long history of back pain. She has had a back surgery in 2004. She had multiple injections over the past years and most recently has had a caudal epidural plus to trigger point injections to the quadratus muscles bilaterally. She reports that they helped transiently. She presents today with continued back pain in the lumbar spine which is worse is standing for long present time, worse with walking, worse with bending over. 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 She reports that injections are been helping transiently but she recalls that the radiofrequency ablations helped in the past. That was last done in 2013. She uses pain medications from her primary care physician reports that they help partially as well. Objective - Vital Signs Vital signs: Vital Signs Temp Pulse 91 04/10/19 14:33 Resp 16 04/10/19 14:33 BP 137/98 04/10/19 14:33 Pulse Ox 96 04/10/19 14:33 Intake & Output 04/09/19 04/10/19 04/10/19 18:59 06:59 18:59 Weight 97.069 kg - Exam General: Awake and alert oriented 3 no distress Respiratory exam: No audible wheezing no accessory muscle usage Cardiovascular exam: regular rate, palpable bilateral pulses, no lower extremity edema Abdominal exam: No distention nontender to palpation Cervical spine: Normal alignment, Spurling's negative, facet loading negative, Car Salesman strength is 5/5, olea negative Lumbar spine: Surgical scar is well-healed, Loss of lumbar lordosis, normal alignment, tender to palpation over bilateral paraspinal muscles, facet loading is positive bilaterally. Straight leg raise is negative. Limited range of motion due to pain with flexion, extension and side bending. Paraspinal muscle atrophy is present, and gluteal muscles are atrophied.. There is a forward flexed body position Sacroiliac joints: Nontender to palpation, ZAIRE is negative, [place] negative Neuro exam: Normal sensation in bilateral upper extremities, deep tendon reflexes are 2+ bilateral upper extremities. Normal sensation in bilateral lower extremities. Deep tendon reflexes are 2+ in lower extremities Psych exam: Cooperative, appropriate mood Assessment and Plan Assessment: #1 lumbar postlaminectomy syndrome #2 lumbar spondylosis without myelopathy #3 chronic pain #4 Number for obesity #5 depression Plan: Kiah presents today with continued pain. Had a discussion with her that injections may offer her some relief but it is to be some effort on her part. She needs to focus on exercise and regular basis, she is to focus on her mental clarity and she is working with a psychiatrist in that regard. We'll also discussed that weight loss and behavioral modification are going to be important to her health improvement. I discussed with her to work on intermittent fasting on a regular basis. I discussed with her how to do that and how to approach it safely. I've given her credible information on where to find more information regarding that. She would like to move forward with bilateral medial branch blocks at the lower levels as she had good improvement with them in the past. Since his been more than 2 years we need to do the test injections at the medial branches before moving forward with the radiofrequency ablation. We will perform the test injections at the L4 5 and L5 sacral marcela bilateral
== END | disposition home or self-care (01) ==
LOC: PNWHC3 13:57
PROVIDERS: ATTEND Hospitalist
DX: G89.29 Other chronic pain (principal); M96.1 Postlaminectomy syndrome, not elsewhere classified; M47.816 Spondylosis without myelopathy or radiculopathy, lumbar region; E66.9 Obesity, unspecified; F32.9 Major depressive disorder, single episode, unspecified; Z68.36 Body mass index [BMI] 36.0-36.9, adult
CPT/HCPCS: 99211

== ENCOUNTER 2019-04-16 09:08 | Day surgery (SDC) | payer BC ==
[2019-04-15 10:43] VITALS: BMI 37.2
[2019-04-16 09:32] VITALS: RESP 16; TEMP 97.2
[2019-04-16] MEDS ORDERED: LACTATED RINGERS 1,000 ML IV ONE (09:33)
--- NOTE | 2019-04-16 09:54 | P.PCN ---
Date of Procedure: 04/16/19 Surgeon: Pato Bustamante Pathology: none sent Condition: stable Disposition: PACU Description of Procedure: PREOPERATIVE DIAGNOSIS : 1- Lumbar spondylosis with Facet Arthropathy without myelopathy . 2- Lumber degenerative disc disease POSTOPERATIVE DIAGNOSIS: 1- Lumbar spondylosis with Facet Arthropathy without myelopathy . 2- Lumber degenerative disc disease PROCEDURE: Diagnostic bilateral L3 -4 , L4 -5 , and L5-S1 medial branch block under fluoroscopy ANESTHESIA: Local with 1% lidocaine; IV moderate conscious sedation with Versed 2 mg and fentanyl 50 g . EBL: Negligible COMPLICATION: None. PROCEDURE INDICATION: Chronic low back pain secondary to Facet arthropathy unresponsive to conservative treatment. PROCEDURE DESCRIPTION: the patient was seen and identified in the preop holding area , risks and benefits and possible complications of the procedure and alternatives . The patient had lumbar laminectomy with preservation of the facet joints. were discussed with the patient, and the patient agreed to proceed with the procedure and signed the consent. IV was started and vital signs monitored during the procedure and fluoroscopy was used to maximize the benefit and accuracy of the needle placement, sedation was given to decrease patient anxiety, patient was taken to the procedure room and placed in prone position vital signs monitored. The patient was brought into the procedure room and placed in prone position. Skin was prepped with Chloraprep and draped in a sterile manner. Lidocaine 1% was used to numb the skin up at the target points that were chosen as follows: at the L5-S1 level which corresponds to the dorsal ramus of L5 the target points were at the superior medial aspect of the sacral ala on each side of the spine on the AP view of fluoroscopy, and for theL2, L3 and L4 medial branches the target points were the connection between the transverse process and the superior to go process of L3, L4 and L5 respectively on the oblique views of fluoroscopy. I used 22-gauge 3-1/2 inch Qu[place]ke spinal needles for this procedure and after contacting bone at the target points mentioned above I injected 1 mL of a mixture of Kenalog 40 mg +5 MLS of Marcaine 0.5% PF . Patient tolerated procedure well. At the end of the procedure the needles removed and a bandage applied after the skin was cleaned the cleaning solution. patient was then taken to the recovery room in stable condition and monitored in the recovery room for 20-30 minutes and discharged home in stable condition after discharge criteria met .
[2019-04-16] MEDS ORDERED: IV FLUID CONTINUATION 1,000 ML IV ONE (09:59)
[2019-04-16 10:28] VITALS: BP 117/81; PULSE 74
--- NOTE | 2019-04-16 12:12 | FL ---
EXAMINATION TYPE: FL guided pain mgmt statistic DATE OF EXAM: 04/16/2019 CLINICAL HISTORY: Low back pain. TECHNIQUE: Fluoroscopy. COMPARISON: None. FINDINGS: Fluoroscopic guidance was provided during pain relief procedure performed by Dr. Bustamante . A total of 8 seconds of fluoroscopic time was utilized during the procedure and 4 spot images are a cquired. Images acquired shows needle localization at multiple levels of the lumbar spine. IMPRESSION: As Above.
== END 2019-04-16 10:42 | disposition home or self-care (01) ==
LOC: ORPAIN 09:08
PROVIDERS: ATTEND Anesthesiology
DX: M96.1 Postlaminectomy syndrome, not elsewhere classified (principal); M47.816 Spondylosis without myelopathy or radiculopathy, lumbar region; M51.36 Other intervertebral disc degeneration, lumbar region; G89.29 Other chronic pain; F32.9 Major depressive disorder, single episode, unspecified; E66.9 Obesity, unspecified; Z68.37 Body mass index [BMI] 37.0-37.9, adult
CPT/HCPCS: 64493; 64494; 64495; 81025; J2250; J3301; J3010; 99152

== ENCOUNTER → 2019-04-17 | Outpatient (CLI) | payer BC ==
--- NOTE | 2019-04-21 09:16 | MM ---
Reason for exam: screening (asymptomatic). Last mammogram was performed 1 year and 4 months ago. History: Family history of breast cancer in paternal grandmother. Physical Findings: A clinical breast exam by your physician is recommended on an annual basis and results should be correlated with mammographic findings. MG Screening Mammo w CAD Bilateral CC and MLO view(s) were taken. Prior study comparison: December 11, 2017, bilateral MG screening mammo w CAD. June 25, 2015, bilateral MG screening mammo w CAD. There are scattered fibroglandular densities. No significant changes when compared with prior studies. ASSESSMENT: Negative, BI-RAD 1 RECOMMENDATION: Routine screening mammogram of both breasts in 1 year.
== END | disposition home or self-care (01) ==
LOC: RADMAMWWP 15:45
PROVIDERS: ATTEND Obstetrics & Gynecology
DX: Z12.31 Encounter for screening mammogram for malignant neoplasm of breast (principal); Z80.3 Family history of malignant neoplasm of breast
CPT/HCPCS: 77067

== ENCOUNTER → 2019-05-14 | Outpatient (CLI) | payer BC ==
[2019-05-14 12:53] VITALS: BP 126/76; PULSE 85; RESP 16
--- NOTE | 2019-05-14 15:14 | P.PAINPG ---
Subjective Progress Note Date: 05/14/19 Lisa is a 53-year-old female presenting for follow-up today. She has long history of back pain. She has had a back surgery in 2005. She had multiple injections over the past years and most recently underwent diagnostic bilateral lumbar medial branch blocks on 04/16/2019 and 04/30/2019. She returns for follow-up. She reports that her pain was essentially eliminated with both these injections, and she is still experiencing some benefit from this. She would like to proceed with the radiofrequency ablation. Objective - Vital Signs Vital signs: Reviewed in EMR - Exam General: Awake and alert oriented, no distress Respiratory exam: No audible wheezing no accessory muscle usage Cardiovascular exam: no lower extremity edema Abdominal exam: No distention Lumbar spine: Surgical scar is well-healed, non-tender to palpation over bilateral paraspinal muscles, facet loading is negative bilaterally. Straight leg raise is negative. Normal range of motion with flexion, extension and side bending. Sacroiliac joints: Nontender to palpation, ZAIRE is negative Neuro exam: Normal sensation in bilateral lower extremities. Deep tendon reflexes are 2+ in lower extremities Psych exam: Cooperative, appropriate mood Assessment and Plan Assessment: #1 lumbar postlaminectomy syndrome #2 lumbar spondylosis without myelopathy #3 chronic pain #4 obesity #5 depression Plan: Kiah obtained good benefit from a bilateral lumbar diagnostic medial branch blocks at levels L3-4, L4-5, L5-S1. We will proceed with lumbar radiofrequency ablation. We will start with the left side as this is her worse side. Objective - Vital Signs Vital signs: Vital Signs Temp Pulse 85 05/14/19 12:49 Resp 16 05/14/19 12:49 BP 126/76 05/14/19 12:49 Pulse Ox 95 05/14/19 12:49 Intake & Output 05/13/19 05/14/19 05/14/19 18:59 06:59 18:59 Weight 93.894 kg PQRS Measure Charge Sheet Measure #130: Documentation of Current Meds in Medical Chart: Patient's medications documented in chart Measure #226: Tobacco Use: Screen & Cessation Intervention: Pt not a tobacco user Measure #111: Pneumonia Vaccination: Pneumococcal vaccine administered or previously received Measure #47: Advance Care Plan: Advance care planning discussed & documented, pt chose/unable to give Measure #412: Opioid Treatment Agreement: No documentation of signed opioid treatment agreement Measure #317: Preventitive Care & Scrn High Bld Press & F/U: Normal blood pressure, f/u not required Measure #128: Body Mass Index (BMI) Screening & Follow-up: BMI documented ABOVE normal parameters - f/u documented Measure #131: Pain Assessment & Follow-up: Pain positive & plan documented, Follow-up scheduled Measure #431: Unhealthy Alcohol Use Preventative Care & Scrn: Patient not identified as an unhealthy alcohol user PQRS Narrative: Smoking Status Former smoker Blood Pressure 126/76 Pain Intensity [Bilateral 2 Lower Back] Scale Used Numeric (1 - 10) Hx Alcohol Use (MH) No Home Medications: Ambulatory Orders HYDROcodone/APAP 10-325MG [[place] 10-325] 1 tab PO Q12H 03/26/14 PARoxetine HCL [Paxil] 60 mg PO HS 03/26/14 Etodolac [Lodine] 400 mg PO BID 12/21/14 Pregabalin [Lyrica] 75 mg PO BID 04/12/16 Cyclobenzaprine [Flexeril] 10 mg PO BID 12/01/17 Turmeric Root Extract [Turmeric] 1,500 mg PO DAILY 12/02/18 busPIRone HCL 10 mg PO BID 12/12/18 Lisinopril 20 mg PO DAILY 01/07/19 Vitamin B Complex 1 each PO DAILY 03/10/19 Cyanocobalamin [Vitamin B-12 Injection] 1,000 mcg SQ QMONTH 03/24/19 Controlled Substance Measures - Controlled Substance Measures Is patient prescribed a controlled substance at discharge?: No
== END ==
LOC: PNWHC3 12:13
PROVIDERS: ATTEND Anesthesiology
DX: G89.29 Other chronic pain (principal); M96.1 Postlaminectomy syndrome, not elsewhere classified; M47.816 Spondylosis without myelopathy or radiculopathy, lumbar region; E66.9 Obesity, unspecified; F32.9 Major depressive disorder, single episode, unspecified; Z87.891 Personal history of nicotine dependence; Z79.891 Long term (current) use of opiate analgesic; Z79.899 Other long term (current) drug therapy; Z68.36 Body mass index [BMI] 36.0-36.9, adult
CPT/HCPCS: 99211

== ENCOUNTER 2019-05-22 07:39 | Day surgery (SDC) | payer BC ==
[2019-05-21 10:20] VITALS: BMI 37.2
[~2019-05-22 07:39] MED LIST changes: +LACTATED RINGERS 1,000 ML IV SCH; -SODIUM CHLORIDE 0.9% 500 ML 500 ML IV SCH
[2019-05-22 08:12] VITALS: RESP 16; TEMP 97.9
[2019-05-22] MEDS ORDERED: LIDOCAINE 1% 20 ML VIAL (10MG/ML) FOR IV START INTRADERMA ONE (08:16)
[2019-05-22] MEDS ORDERED: IV FLUID CONTINUATION 1,000 ML IV ONE (09:16)
--- NOTE | 2019-05-22 09:18 | P.PCN ---
Date of Procedure: 05/22/19 Procedure(s) Performed: PREOPERATIVE DIAGNOSIS: Lumbar Spondylosis POSTOPERATIVE DIAGNOSIS: Same PROCEDURES: Radiofrequency ablation of the L3, L4, L5 medial branches with fluoroscopic guidance (for facet joints L45 and L5-S1) on the left side SURGEON: Anastacio Doe MD. ANESTHESIA: Lidocaine 1% 5 mL, Moderate sedation with intravenous Versed and fentanyl EBL: Minimal Fluoroscopy was used for the procedure and images were saved in the radiology portion of the chart. PROCEDURE INDICATION: The patient with low back pain secondary to lumbar facet arthropathy who had more than 50% relief of pain with previous diagnostic lumbar medial branch block X2. PROCEDURE DESCRIPTION / TECHNIQUE: The patient was seen and identified in the preoperative area. Risks, benefits, complications, including but not limited to risk of infection ,bleeding , allergic reactions to the medications and incomple te pain relief , and alternatives were discussed with the patient, the patient agreed to proceed with the procedure and signed the consent. IV was started. The operative site was marked. Patient was taken to the OR and time out was completed. The patient was placed in the prone position on the procedure table. The lumbar area was prepped and draped in the usual sterile fashion. . Vital signs were closely monitored during the procedure .IV sedation was used during the procedure to decrease patients anxiety. Using AP and then oblique fluoroscopy, the ``eye of the Ward dog corresponding to the connection between the superior and transverse articular processes of the L4 and L5 as well as the sacral ala were identified, marked, and localized with 1% lidocaine. Subsequently, an 18 guage 150-mm radiofrequency cannula with a 10-mm active tip was advanced guided by fluoroscopy to the identified target at each site. For sacral ala 18-gauge 100 mm radiofrequency cannula was used. Needle positioning was confirmed on AP, oblique and lateral fluoroscopy. Motor testing at 2.5 Hz was done with paraspinal muscle stimulation only, and no radicular symptoms down the legs. Then 1 mL of 4% lidocaine was injected in each site. Radiofrequency thermocoagulation at 80 degrees celsius for 90 seconds was then performed. Tennille were removed. Sterile dressings were applied. COMPLICATIONS: No acute complications. DISPOSITION / PLANS: The patient was placed in a supine position and transferred to the recovery area in a stable condition for observation and was discharged from the recovery room after meeting discharge criteria. Home discharge instructions given to the patient by the staff. The patient will follow up for right sided lumbar radiofrequency ablation in about 4 weeks
[2019-05-22 09:34] VITALS: BP 128/57; PULSE 79
--- NOTE | 2019-05-22 09:36 | FL ---
EXAMINATION TYPE: FL guided pain mgmt statistic DATE OF EXAM: 05/22/2019 CLINICAL HISTORY: Low back pain. TECHNIQUE: Fluoroscopy. COMPARISON: None. FINDINGS: Fluoroscopic guidance was provided during pain relief procedure performed by Dr. Doe . A total of 11 seconds of fluoroscopic time was utilized during the procedure and 7 spot images are acqu ired. Images acquired shows needle localization at multiple levels in the lower lumbar spine. IMPRESSION: As Above.
== END 2019-05-22 09:48 | disposition home or self-care (01) ==
LOC: ORPAIN 07:39
PROVIDERS: ATTEND Anesthesiology
DX: M47.816 Spondylosis without myelopathy or radiculopathy, lumbar region (principal); M96.1 Postlaminectomy syndrome, not elsewhere classified; G89.29 Other chronic pain; F32.9 Major depressive disorder, single episode, unspecified; E66.9 Obesity, unspecified; Z68.37 Body mass index [BMI] 37.0-37.9, adult; Z87.891 Personal history of nicotine dependence; Z79.891 Long term (current) use of opiate analgesic; Z79.899 Other long term (current) drug therapy; Z91.013 Allergy to seafood
CPT/HCPCS: 64635; 64636; 81025; J2250; J3010; 99152

== ENCOUNTER 2019-06-12 06:39 | Day surgery (SDC) | payer BC ==
[2019-06-09 15:54] VITALS: BMI 37.2
[2019-06-12] MEDS ORDERED: LACTATED RINGERS 1,000 ML IV ONE (06:50)
[2019-06-12] MEDS ORDERED: LACTATED RINGERS 1,000 ML IV SCH (07:00)
[2019-06-12] MEDS ORDERED: LIDOCAINE 1% 20 ML VIAL (10MG/ML) FOR IV START INTRADERMA ONE (07:02)
[2019-06-12 07:12] VITALS: TEMP 97.7
--- NOTE | 2019-06-12 07:46 | P.PCN ---
Date of Procedure: 06/12/19 Procedure(s) Performed: PREOPERATIVE DIAGNOSIS: 1-Lumbar Spondylosis with Facet Arthropathy without myelopathy. 2- failed back surgery syndrome lumbar area POSTOPERATIVE DIAGNOSIS: 1- Lumbar Spondylosis with Facet Arthropathy without myelopathy. 2- failed back surgery syndrome lumbar area PROCEDURES : Right Radiofrequency thermocoagulation, L3-L4, L4-L5, and L5-S1 medial branch, with fluoroscopic guidance (fluoroscopy images available in the radiology department) ANESTHESIA: Moderate sedation with intravenous versed 3 mg and fentaneyl 150 mcg, and local infiltration with Ropivacaine 0.5 % . EBL: Minimal PROCEDURE INDICATION: The patient with low back pain secondary to lumbar facet arthropathy who had more than 50% relief of her pain with previous diagnostic lumbar medial branch block with bupivacaine. PROCEDURE DESCRIPTION / TECHNIQUE: The patient was seen and identified in the preoperative area. Risks, benefits, complications, including but not limited to risk of infection ,bleeding , allergic reactions to the medications and no complete pain releife , and alternatives were discussed with the patient, the patient agreed to proceed with the procedure and signed the consent. IV was started. Vital signs remained stable throughout the procedure. Patient was taken to the OR and time out was completed. The patient was placed in the prone position on the procedure table. The lumber area was prepped and draped in the usual sterile fashion. . Vital signs were closely monitored during the procedure .IV sedation was used during the procedure to decrease patients anxiety. Using AP and then oblique fluoroscopy, the ``eye of the Ward dog corresponding to the connection between the superior and transverse articular processes of right L3, L4, and L5 were identified, marked, and localized with 1% lidocaine. Subsequently, a 18 [id number] radiofrequency cannula with a 10- mm active tip was advanced guided by fluoroscopy to each of the``eyes of the Ward dog at right L3, L4, and L5. Each site then underwent sensory testing at 50 Hz and 0 to 1 volt and motor testing at 2.5 Hz and 0 to 3 volt with local stimulation, but no radicular symptoms down the legs. Thereafter the right L3-4, L4-5, and L5-S1 sites underwent radiofrequency thermocoagulation at 80 degrees celsius for 90 seconds after injecting 0.5 ml of PF Ropivacaine 1ml, then after the thermocoagulation done , 1 ml of the block solution containing Depo-Medrol 40 mg and 3 ml of Ropivacaine 0.5% was injected at the right L3-4 , L4-5 , and L5-S1, levels after negative aspiration of CSF and blood and with no paresthesias. Cannulas were retracted while injecting lidocaine 1% until the needle is out. At the end of the procedure, the skin was cleansed and bandages were applied. COMPLICATIONS: No acute complications. DISPOSITION / PLANS: The patient was placed in a supine position and transferred to the recovery area in a stable condition for observation and was discharged from the recovery room after meeting discharge criteria. Home discharge instructions given to the patient by the staff. The patient was reexamined prior to discharge. The patient will schedule a follow up in the clinic in 2-4 weeks.
[2019-06-12] MEDS ORDERED: IV FLUID CONTINUATION 1,000 ML IV ONE (07:56)
--- NOTE | 2019-06-12 07:57 | FL ---
EXAMINATION TYPE: FL guided pain mgmt statistic DATE OF EXAM: 06/12/2019 CLINICAL HISTORY: Low back pain. TECHNIQUE: Fluoroscopy. COMPARISON: None. FINDINGS: Fluoroscopic guidance was provided during pain relief procedure performed by Dr. Otero . A total of 8 seconds of fluoroscopic time was utilized during the procedure and 3 spot images are acquired. Images acquired shows needle localization at several levels in the lower lumbar spine. IMPRESSION: As Above.
[2019-06-12 07:58] VITALS: RESP 18
[2019-06-12 08:10] VITALS: BP 105/63; PULSE 79
== END 2019-06-12 08:24 | disposition home or self-care (01) ==
LOC: ORPAIN 06:39
PROVIDERS: ATTEND Specialist
DX: M47.816 Spondylosis without myelopathy or radiculopathy, lumbar region (principal); M96.1 Postlaminectomy syndrome, not elsewhere classified; I10 Essential (primary) hypertension; Z91.013 Allergy to seafood
CPT/HCPCS: 64635; 64636 ×2; 81025; J2250; J3010; 99152

== ENCOUNTER → 2020-04-01 | Outpatient (CLI) | payer BC ==
[2020-04-01 12:28] LABS: Basophils % (A) 1 %; Eosinophils # (A) 0.1 k/uL (0-0.7); Eosinophils % (A) 1 %; HCT 41.8 % (34.0-46.0); HGB 13.2 gm/dL (11.4-16.0); Lymphocytes # (A) 1.9 k/uL (1.0-4.8); Lymphocytes % (A) 29 %; MCH 28.5 pg (25.0-35.0); MCHC 31.6 g/dL (31.0-37.0); Monocytes # (A) 0.4 k/uL (0-1.0); Monocytes % (A) 6 %; Neutrophils # (A) 4.1 k/uL (1.3-7.7); Neutrophils % (A) 62 %; Platelet Count 249 k/uL (150-450); RBC 4.65 m/uL (3.80-5.40); RDW 13.4 % (11.5-15.5); WBC 6.6 k/uL (3.8-10.6)
[2020-04-01 20:16] LABS: African American GFR (CKD) 96.2 (60.0-200.0); Albumin 4.3 g/dL (3.80-4.90); Albumin/Globulin Ratio 2.39 (1.60-3.17); Anion Gap 7.1 mmol/L (4.00-12.00); BUN/Creat Ratio 12.5 Ratio (12.00-20.00); Calcium 9.1 mg/dL (8.7-10.3); Carbon Dioxide 25.9 mmol/L (21.6-31.8); Chol/HDL Ratio 2.7; Globulin 1.8 g/dL (1.6-3.3); LDL Cholesterol,Calculated 64.6 mg/dL (0.0-131.0); Potassium 4.6 mmol/L (3.5-5.5); Total Bilirubin 0.3 mg/dL (0.2-1.2); Total Protein 6.1 g/dL (6.2-8.2); VLDL Calculation 15.4 mg/dL (5.00-40.00)
== END | disposition home or self-care (01) ==
LOC: LABWHC1 09:54
PROVIDERS: ATTEND Internal Medicine
DX: Z00.00 Encounter for general adult medical examination without abnormal findings (principal); E78.2 Mixed hyperlipidemia
CPT/HCPCS: 36415; 80053; 80061; 84443; 85025

== ENCOUNTER → 2020-06-10 | Outpatient (CLI) | payer BC ==
--- NOTE | 2020-06-14 10:00 | MM ---
Reason for exam: screening (asymptomatic). Last mammogram was performed 1 year and 2 months ago. History: Patient is postmenopausal. Family history of breast cancer in paternal grandmother. Took hormonal contraceptives beginning at age 17. Taking other hormone for 6 months. Physical Findings: A clinical breast exam by your physician is recommended on an annual basis and results should be correlated with mammographic findings. MG Screening Mammo w CAD Bilateral CC and MLO view(s) were taken. Prior study comparison: April 17, 2019, bilateral MG screening mammo w CAD. December 11, 2017, bilateral MG screening mammo w CAD. There are scattered fibroglandular densities. Finding #1: There is a 3 mm equal density (isodense), obscured oval mass in the lower quadrant, central position of the right breast. Finding #2: There are typically benign calcifications in both breasts. There is a chronic nodularity in the left breast. ASSESSMENT: Incomplete: need additional imaging evaluation, BI-RAD 0 RECOMMENDATION: Special view mammogram of the right breast. If lesion persists on supplemental views, image directed ultrasound is recommended. [facility] will attempt to contact patient to return for supplemental views and ultrasound if indicated.
== END | disposition home or self-care (01) ==
LOC: RADMAMWWP 15:36
PROVIDERS: ATTEND Obstetrics & Gynecology
DX: Z12.31 Encounter for screening mammogram for malignant neoplasm of breast (principal); Z80.3 Family history of malignant neoplasm of breast
CPT/HCPCS: 77067

== ENCOUNTER → 2020-07-07 | Outpatient (CLI) | payer BC ==
--- NOTE | 2020-07-08 09:05 | MM ---
Reason for exam: additional evaluation requested from abnormal screening. Last mammogram was performed 1 month ago. History: Patient is postmenopausal. Family history of breast cancer in paternal grandmother. Took hormonal contraceptives beginning at age 17. Taking other hormone for 6 months. Physical Findings: Nurse did not find any significant physical abnormalities on exam. MG Work Up Mamm w CAD RT Spot compression CC, spot compression MLO, and LM view(s) were taken of the right breast. Prior study comparison: June 10, 2020, bilateral MG screening mammo w CAD. April 17, 2019, bilateral MG screening mammo w CAD. Nodular density 1 o'clock 6.3cm from nipple measuring 10mm. These results were verbally communicated with the patient and result sheet given to the patient on 07/07/20. ASSESSMENT: Incomplete: need additional imaging evaluation, BI-RAD 0 RECOMMENDATION: Ultrasound of the right breast.
--- NOTE | 2020-07-08 09:06 | USB ---
Reason for exam: additional evaluation requested from abnormal screening. History: Patient is postmenopausal. Family history of breast cancer in paternal grandmother. Took hormonal contraceptives beginning at age 17. Taking other hormone for 6 months. US Breast Workup Limited RT Right limited breast ultrasound including focal area of concern, retroareolar and axilla demonstrates a 0.9 x 0.4 x 1.2cm mixed lesion at 1 o'clock. These results were verbally communicated with the patient and result sheet given to the patient on 07/07/20. ASSESSMENT: Probably benign, BI-RAD 3 RECOMMENDATION: Ultrasound of the right breast in 6 months.
== END | disposition home or self-care (01) ==
LOC: RADMAMWWP 14:45
PROVIDERS: ATTEND Obstetrics & Gynecology
DX: R92.8 Other abnormal and inconclusive findings on diagnostic imaging of breast (principal)
CPT/HCPCS: 77065

== ENCOUNTER → 2021-01-27 | Outpatient (CLI) | payer BC ==
--- NOTE | 2021-01-28 11:55 | USB ---
Reason for exam: follow-up at short interval from prior study. History: Patient is postmenopausal. Family history of breast cancer in paternal grandmother. Took hormonal contraceptives for 27 years beginning at age 17. Taking other hormone. Physical Findings: Nurse did not find any significant physical abnormalities on exam. US Breast Limited RT Right limited breast ultrasound including focal area of concern, retroareolar and axilla demonstrates a 0.5 x 1.1 x 0.2cm cystic cluster at 1 o'clock. These results were verbally communicated with the patient and result sheet given to the patient on 01/27/21. ASSESSMENT: Benign, BI-RAD 2 RECOMMENDATION: Return to routine screening mammogram schedule for both breasts. Back on schedule.
== END | disposition home or self-care (01) ==
LOC: RADUSWWP 14:20
PROVIDERS: ATTEND Obstetrics & Gynecology
DX: R92.8 Other abnormal and inconclusive findings on diagnostic imaging of breast (principal); Z78.0 Asymptomatic menopausal state; Z80.3 Family history of malignant neoplasm of breast

== ENCOUNTER → 2021-02-18 | Outpatient (CLI) | payer BC ==
--- NOTE | 2021-02-20 17:45 | XR ---
EXAMINATION TYPE: XR chest 2V DATE OF EXAM: 02/18/2021 COMPARISON: 01/07/2019 HISTORY: 55-year-old female R06.02, shortness of breath, chest pain TECHNIQUE: Frontal and lateral views FINDINGS: The cardiomediastinal silhouette, aorta, and pulmonary vasculature are within normal limits. Some str ingy atelectasis in the lower lungs. No consolidation, pneumothorax, or pleural effusion. IMPRESSION: No acute cardiopulmonary process.
== END | disposition home or self-care (01) ==
LOC: RADXRMAIN 11:32
PROVIDERS: ATTEND Internal Medicine
DX: R06.02 Shortness of breath (principal); R07.9 Chest pain, unspecified
CPT/HCPCS: 71046

== ENCOUNTER → 2021-02-18 | Outpatient (CLI) | payer BC ==
[2021-02-18 19:30] LABS: Basophils # (A) 0.04 X 10*3/uL (0.00-0.10); Basophils % (A) 0.6 %; Eosinophils # (A) 0.16 X 10*3/uL (0.04-0.35); Eosinophils % (A) 2.3 %; HCT 42.8 % (37.2-46.3); HGB 13.8 g/dL (12.0-15.0); Lymphocytes % (A) 31.7 %; MCH 29.4 pg (27.0-32.0); MCHC 32.2 g/dL (32.0-37.0); MCV 91.1 fL (80.0-97.0); Mean Platelet Volume 10.4 fL (9.5-12.2); Monocytes # (A) 0.55 X 10*3/uL (0.20-1.00); Monocytes % (A) 7.9 %; Neutrophils # (A) 3.97 X 10*3/uL (1.80-7.70); Neutrophils % (A) 57.2 %; Platelet Count 294 X 10*3/uL (140-440); RDW 12.9 % (11.5-14.5); WBC 6.94 X 10*3/uL (4.50-10.00)
[2021-02-18 20:26] LABS: Ferritin 38.1 ng/mL (10.0-291.0)
[2021-02-18 20:41] LABS: African American GFR (CKD) 95.5 (60.0-200.0); Albumin 4.6 g/dL (3.80-4.90); Albumin/Globulin Ratio 2.3 (1.60-3.17); Anion Gap 9.2 mmol/L (4.00-12.00); BUN/Creat Ratio 18.75 Ratio (12.00-20.00); C Reactive Protein 0.5 mg/dL (0.0-0.8); Calcium 9.7 mg/dL (8.7-10.3); Carbon Dioxide 26.8 mmol/L (21.6-31.8); Non-African American GFR(CKD) 82.4 (60.0-200.0); Potassium 4.4 mmol/L (3.5-5.5); Total Bilirubin 0.4 mg/dL (0.3-1.2); Total Protein 6.6 g/dL (6.2-8.2)
== END | disposition home or self-care (01) ==
LOC: LABWHC1 11:19
PROVIDERS: ATTEND Internal Medicine
DX: R06.02 Shortness of breath (principal)
CPT/HCPCS: 36415; 80053; 82728; 83615; 85025; 85379; 86140

== ENCOUNTER → 2021-02-25 | Outpatient (CLI) | payer BC ==
--- NOTE | 2021-02-25 14:27 | NM ---
EXAMINATION TYPE: NM pul vent and perfuse DATE OF EXAM: 02/25/2021 COMPARISON: NONE HISTORY: R06.00 Dyspnea on exertion TECHNIQUE: Utilizing inhalation of 36 mCi Tc 99m DTPA aerosol and intravenous injection of 5 mCi of Tc 99m MAA, ventilation and perfusion images are acquired post injection in multiple projections. FINDINGS: Normal radiotracer distribution is noted in the lungs. There is no evidence of mismatched defects. IMPRESSION: Very low probability for pulmonary embolism.
--- NOTE | 2021-02-25 15:51 | XR ---
EXAMINATION TYPE: XR chest 2V DATE OF EXAM: 02/25/2021 COMPARISON: 02/18/2021 HISTORY: Shortness of breath TECHNIQUE: Frontal and lateral views of the chest are obtained. FINDINGS: Scattered senescent parenchymal changes noted. Hyperinflation compatible with COPD. No evidence for infiltrate. No evidence for atelectasis. Heart size is stable. Mediastinal structures are stable and grossly unremarkable. No evidence for hilar prominence. Degenerative changes dorsal spine. IMPRESSION: 1. No evidence for acute pulmonary disease.
== END | disposition home or self-care (01) ==
LOC: RADNMMAIN 11:57
PROVIDERS: ATTEND Internal Medicine
DX: I26.99 Other pulmonary embolism without acute cor pulmonale (principal); R06.02 Shortness of breath
CPT/HCPCS: 71046; 78582; A9540; A9567

== ENCOUNTER → 2021-08-26 | Outpatient (CLI) | payer BC ==
--- NOTE | 2021-08-30 09:15 | MM ---
Reason for exam: screening (asymptomatic). Last mammogram was performed 1 year and 2 months ago. History: Patient is postmenopausal. Family history of breast cancer in paternal grandmother. Took hormonal contraceptives for 27 years beginning at age 17. Taking other hormone. Physical Findings: A clinical breast exam by your physician is recommended on an annual basis and results should be correlated with mammographic findings. MG Screening Mammo w CAD Bilateral CC and MLO view(s) were taken. Prior study comparison: June 10, 2020, bilateral MG screening mammo w CAD. April 17, 2019, bilateral MG screening mammo w CAD. December 11, 2017, bilateral MG screening mammo w CAD. Focal asymmetry right breast, stable. No significant changes when compared with prior studies. ASSESSMENT: Benign, BI-RAD 2 RECOMMENDATION: Routine screening mammogram of both breasts in 1 year.
== END | disposition home or self-care (01) ==
LOC: RADMAMWWP 15:58
PROVIDERS: ATTEND Obstetrics & Gynecology
DX: Z12.31 Encounter for screening mammogram for malignant neoplasm of breast (principal); Z80.3 Family history of malignant neoplasm of breast; Z78.0 Asymptomatic menopausal state
CPT/HCPCS: 77067

== ENCOUNTER → 2022-09-14 | Outpatient (CLI) | payer BC ==
--- NOTE | 2022-09-14 15:59 | US ---
EXAMINATION TYPE: US carotid duplex BILAT DATE OF EXAM: 09/14/2022 COMPARISON: NONE CLINICAL HISTORY: I65.23 CAROTID STENOSIS. no h/o stroke, no symptoms, patient thinks it is due to he r age TECHNIQUE: Carotid duplex ultrasound examination. Indirect Doppler criteria was utilized. FINDINGS: EXAM MEASUREMENTS: RIGHT: Peak Systolic Velocity (PSV) cm/sec ----- Right CCA: 91.9 ----- Right ICA: 102.6 ----- Right ECA: 114.3 ICA/CCA ratio: 1.1 RIGHT: End Diastole cm/sec ----- Right CCA: 23.7 ----- Right ICA: 27.8 ----- Right ECA: 19.8 LEFT: Peak Systolic Velocity (PSV) cm/sec ----- Left CCA: 81.7 ----- Left ICA: 127.2 ----- Left ECA: 91.9 ICA/CCA ratio: 1.6 LEFT: End Diastole cm/sec ----- Left CCA: 24.5 ----- Left ICA: 50.9 ----- Left ECA: 19.3 VERTEBRALS (direction of flow): Right Vertebral: Antegrade Left Vertebral: Antegrade Rhythm: Normal SYSTEMS ADMINISTRATION ANALYST NOTES: mild plaque with no significant stenosis seen IMPRESSION: Mild stenosis at 50% within the left internal carotid artery. Criteria for Assigning % of Stenosis / Diameter reduction (Estimation based on the indirect measurements of the internal carotid artery velocities (ICA PSV). 1. Normal (no stenosis)=ICA PSV < 125 cm/s: ratio < 2.0: ICA EDV<40 cm/s. 2. Less than 50% stenosis=ICA PSV < 125 cm/s: ratio < 2.0: ICA EDV<40 cm/s. 3. 50 to 69% stenosis=ICA PSV of 125 to 230 cm/s: ration 2.0 ? 4.0: ICA EDV 40-100 cm/s. 4. Greater than 70% stenosis to near occlusion= ICA PSV > 230 cm/s: ratio > 4.0: ICA EDV > 100 cm/s. 5. Near occlusion= ICA PSV velocities may be low or undetectable: variable ratio and ICA EDV. 6. Total occlusion=unable to detect flow.
--- NOTE | 2022-09-14 16:06 | BD ---
EXAMINATION TYPE: Axial Bone Density DATE OF EXAM: 09/14/2022 COMPARISON: NONE CLINICAL HISTORY: 57 year old Female. ICD-10 CODE: M85.851 OSTEOPENIA RT HIP Height: 63 Weight: 217.4 FRAX RISK QUESTIONS: Alcohol (3 or more units per day): no Family History (Parent hip fracture): no Glucocorticoids (More than 3mos): no (Ex: prednisone, prednisolone, methylprednisolone, dexamethasone, and hydrocortisone). History of Fracture in Adulthood: no Secondary Osteoporosis: 1. Type 1 Diabetes: no 2. Hyperthyroidism: no 3. Menopause before 45: no 4. Malnutrition: no 5. Chronic liver disease: no Rheumatoid Arthritis: no Current Tobacco Use: no RISK FACTORS HISTORY OF: Surgery to Spine/Hip(right/left)/Wrist (right/left): lumbar spine Family History of Osteoporosis: no Active: yes Diet low in dairy products/other sources of calcium: yes Postmenopausal woman: yes Take estrogen and/or progesterone medications: yes How lon 1/2 years Lost more than 2 inches in height since high school: no MEDICATIONS: Additional History: EXAM MEASUREMENTS: Bone mineral densitometry was performed using the [employer] System. Bone mineral density about the R hip (g/cm2): 1.041 Bone mineral density about the L hip (g/cm2): 1.040 T Score values are as follows: -----R Neck: 0.0 -----L Neck: 0.0 -----R Total: 1.3 -----L Total: 1.4 Bone mineral density has: increased1.8 % since study of: 2.6.2017 Bone mineral density about the L Wrist (g/cm2): 0.617 T Score values are as follows: -----Dist. R+U: -0.9 -----Prox. R+U: 0.1 -----Radius total: -1.0 Bone mineral density : baseline FRAX%s: The graph provided illustrates a 5.2% chance for a major osteoporotic fx and a 0.1% chance fo r the hips probability for fx in 10 years time. IMPRESSION: Normal (Values between +1 and -1 indicate normal bone mass). Consider repeating this study in 5 year s or sooner if there is some new clinical indication. NOTE: T-SCORE=SD OF THE YOUNG ADULT MEAN.
--- NOTE | 2022-09-15 07:44 | MM ---
Reason for Exam: Screening (asymptomatic). Last mammogram was performed 1 year(s) and 1 month(s) ago. Patient History: Menarche at age 12. First Full-Term at age 17. Postmenopausal. Hormonal Contraceptives for 27 years from age 17 until age 44. Paternal grandmother had breast cancer. Risk Values: Katelyn 5 year model risk: 1.0%. NCI Lifetime model risk: 5.6%. Prior Study Comparison: 06/10/2020 Bilateral Screening Mammogram, [facility]. 07/07/2020 Right Diagnostic Mammogram, [facility]. 08/26/2021 Bilateral Screening Mammogram, [facility]. Tissue Density: The breast tissue is heterogeneously dense. This may lower the sensitivity of mammography. Findings: Analyzed By CAD. There is no suspicious group of microcalcifications or new suspicious mass in either breast. Overall Assessment: Negative, BI-RAD 1 Management: Screening Mammogram of both breasts in 1 year. A clinical breast exam by your physician is recommended on an annual basis and results should be correlated with mammographic findings. Electronically signed and approved by: Paxton Mendoza M.D. Radiologis
== END | disposition home or self-care (01) ==
LOC: RADMAMWWP 14:53
PROVIDERS: ATTEND Internal Medicine
DX: Z12.31 Encounter for screening mammogram for malignant neoplasm of breast (principal); I65.22 Occlusion and stenosis of left carotid artery; M85.851 Other specified disorders of bone density and structure, right thigh; Z78.0 Asymptomatic menopausal state; Z80.3 Family history of malignant neoplasm of breast
CPT/HCPCS: 77067; 77080; 93880

== ENCOUNTER → 2023-02-19 | Outpatient (CLI) | payer BC ==
--- NOTE | 2023-02-19 14:37 | P.PAINPG ---
PQRS Measure Charge Sheet Comment: HISTORY OF PRESENT ILLNESS: 57 yr old female as a referral from Dr Fischer presents today w severe and chronic LBP secondary to DDD, spondylosis and facet arthropathy without myelopathy for evaluation. Pt states pain level is provoked at 5/10 in intensity, constant, localized in the lower lumbar spine, achy in character w shooting pain towards the BLEs. Pain is provoked by standing/ walking for periods of 20 min or more. Pain is alleviated by PT after back surgery which was ineffective, chiropractic treatments which are contraindicated after surgery, heat, ice, medications, topical laying supine and rest. PMH: Fibromyalgia, Hyperlipidemia, HTN, OA PSH: BL RFA L3-L5 (2019), Adenoidectomy, Lumbar Surgery, Cholecystectomy, Tonsillectomy, D&C, Thyroidectomy, R Hip Arthroscopy, Endometrial Biopsy SH: Former tobacco use, No ETOH abuse, No illicit drug use FH: Daughter- THyroid CA, Fa- No Reported History, Sister- No Reported History, Son- No Reported History, Mo- COPD All: See list Meds: See list REVIEW OF ORGAN SYSTEMS: CONSTITUTIONAL: No fevers or chills. No recent weight loss. NEUROLOGICAL: + numbness and tingling along the distal extremities. No seizure disorders or headaches. MUSCULOSKELETAL: + pain PSYCHIATRIC: Denies current depression or suicidal thoughts. Physical Examinations : Constitutional : Cooperative , not in acute distress . Neurologic : Cranial nerve II to XII intact. No focal neurological deficits. Psychiatric : alert & oriented x 3. Matching mood & appropriate affect. Judgment & insight intact. Musculoskeletal : Cervical Spine Motor strength in the deltoid and biceps: Normal right side. Normal Left side Motor strength biceps and the wrist extensors: Normal right side . Normal left side Motor strength in the triceps muscle: Normal right side. Normal left side Deep tendon reflexes: Normal at the biceps. Normal at Brachioradialis. Normal at triceps Vertebral body tenderness to deep palpation over Cervical facet loading test: positive bilaterally Spurling test: positive bilaterally Neck distraction test: positive bilaterally Tay sign: positive bilaterally Lumbar spine Motor strength lower extremities ,thigh and legs 5/5 Right side , 5/5 Left side Deep tendon reflexes : Normal Knee Jerk. Normal Ankle Jerk Vertebral body tenderness over Lumbar facet Loading Test: positive Right / positive Left Range of motion of the lumbar spine Flexion 30 degrees, extension 10 degrees Straight Leg Raise test: Left/ Right positive at degree Zan test: positive right / positive left. Severe tenderness over the Sacroiliac joint on the Right / Left sides Gaenslen test: positive bilaterally Seated flexion test: positive bilaterally. Sacral spine : Severe tenderness over the Sacroiliac joint: right side / left side Range of motion: Flexion of the lumbar spine <60 degrees Range of motion: Extension of the lumbar spine <20 degrees Gaenslen's Test positive Guanaco's Test positive Zan test: positive right side / left side Thigh Thrust Test Sacral Thrust Test Imaging: None on file Assessment/ Plan : Lumbar DDD Recommendation of x ray of lumbar spine re: M51.36 May need additional testing if indicated. All questions answered. I have spent greater than 30 minutes on patient care today. Dr Otero was available by phone for the evaluation of this patient. The time was used to review the medical records including relevant urine studies and Prescription history (MAPs), review of the available imaging, evaluation and examination of the patient, coordination of care with the medical staff and if applicable referring physicians, as well as creation of the medical record PQRS Narrative: Smoking Status Former smoker Hx Alcohol Use (MH) No Home Medications: Ambulatory Orders HYDROcodone/APAP 10-325MG [[place] 10-325] 1 tab PO Q12H 03/26/14 PARoxetine HCL [Paxil] 60 mg PO HS 03/26/14 Etodolac [Lodine] 400 mg PO BID 12/21/14 Pregabalin [Lyrica] 75 mg PO BID 04/12/16 Cyclobenzaprine [Flexeril] 10 mg PO BID 12/01/17 Turmeric Root Extract [Turmeric] 1,500 mg PO DAILY 12/02/18 busPIRone HCL 10 mg PO BID 12/12/18 lisinopriL 20 mg PO DAILY 01/07/19 Vitamin B Complex 1 each PO DAILY 03/10/19 Cyanocobalamin [Vitamin B-12 Injection] 1,000 mcg SQ QMONTH 03/24/19 Controlled Substance Measures - Controlled Substance Measures Is patient prescribed a controlled substance at discharge?: No
[2023-02-19 14:44] VITALS: BP 119/57; PULSE 73; RESP 18; TEMP 98
--- NOTE | 2023-02-19 15:03 | XR ---
EXAMINATION TYPE: XR lumbar spine 2 or 3V DATE OF EXAM: 02/19/2023 CLINICAL HISTORY: pain TECHNIQUE: Three views of the lumbar spine are submitted. COMPARISON: None. FINDINGS: There are 5 lumbar type vertebral bodies identified. The lumbar spine shows satisfactory alignment w ithout evidence of acute fracture or dislocation. Vertebral body heights are within normal limits. Severe degenerative disc disease with endplate sclerosis and associated spondylosis at L4-5 and L5-S1 . Severe facet joint arthropathy noted as well. The overlying soft tissue appears unremarkable. IMPRESSION: No acute fracture or dislocation is seen in the lumbar spine. ICD 10 NO FRACTURE, INITIAL EVALUATION
== END ==
LOC: PNWHC3 13:40
PROVIDERS: ATTEND Specialist
DX: M51.36 Other intervertebral disc degeneration, lumbar region (principal); M79.7 Fibromyalgia; E78.5 Hyperlipidemia, unspecified; I10 Essential (primary) hypertension; M19.90 Unspecified osteoarthritis, unspecified site; Z87.891 Personal history of nicotine dependence; Z91.013 Allergy to seafood
CPT/HCPCS: 72100; 99211

== ENCOUNTER → 2023-03-16 | Outpatient (CLI) | payer BC ==
--- NOTE | 2023-03-17 08:44 | MR ---
EXAMINATION TYPE: MR lumbar spine wo con DATE OF EXAM: 03/16/2023 4:24 PM COMPARISON: Radiograph 02/19/2023. CLINICAL INDICATION:Female, 57 years old with history of M51.36 INTERVERTEBRAL DISC DEGENERATION, LUM BAR RE; Low back pain into legs TECHNIQUE: Multi planar, multi sequence imaging was performed utilizing: T1-weighted, T2-weighted, a nd turbo inversion recovery imaging of the lumbar spine. IV Contrast: None. FINDINGS: Alignment: The lumbar vertebral bodies have preserved heights with slight grade 1 anterolisthesis of L3 on L4. Cord: The conus medullaris and the distal spinal cord appear unremarkable with regards to their signa l intensity and morphology. Bones/Discs: Bone signal is within normal limits. Mild reactive bony edema at the posterior superior and anterior inferior endplate of L5. Multilevel disc degenerative is noted and most pronounced at th e L4-L5. Multilevel disc desiccation is present. T12-L1: No evidence of significant spinal canal stenosis or neural foraminal stenosis. L1-L2: Left central disc extrusion without significant spinal canal stenosis. Neural foramen are miller nt L2-L3: Disc bulge and facet joint arthropathy result in mild spinal canal and mild bilateral neural f oraminal stenosis. L3-L4: Disc bulge and facet joint arthropathy result in mild spinal canal and moderate bilateral neur al foraminal stenosis. L4-L5: Disc bulge and facet joint arthropathy result in mild spinal canal and moderate bilateral neur al foraminal stenosis. Trace right facet joint effusion L5-S1: The disc is rounded posterior morphology without significant spinal canal stenosis. Facet join t arthropathy with moderate neural foraminal stenosis. Trace bilateral facet joint effusions No significant spinal canal or neural foraminal stenosis in the remainder of the visualized levels. Other findings: None. IMPRESSION: 1. L1-L2 left central herniation without significant spinal canal or neural foraminal stenosis. 2. Grade 1 anterior listhesis of L3 on L4. 3. Multilevel disc degeneration changes with moderate neural foraminal stenosis from L3-L4 to L5-S1. Trace bilateral facet joint effusions at L5-S1.
== END | disposition home or self-care (01) ==
LOC: RADMRIMAIN 15:29
PROVIDERS: ATTEND Specialist
DX: M51.36 Other intervertebral disc degeneration, lumbar region (principal); M43.16 Spondylolisthesis, lumbar region; M99.73 Connective tissue and disc stenosis of intervertebral foramina of lumbar region; M25.48 Effusion, other site
CPT/HCPCS: 72148

== ENCOUNTER → 2023-03-21 | Outpatient (CLI) | payer BC ==
[2023-03-21 15:37] VITALS: BP 108/58; PULSE 76; RESP 18; TEMP 97.6
--- NOTE | 2023-03-21 15:37 | P.PAINPG ---
PQRS Measure Charge Sheet Comment: A 57 yr old female with a history of severe and chronic LBP secondary to lumbar DDD and spondylosis with facet arthropathy without myelopathy presents today for MRI lumbar spine results. Pt states pain level is provoked at 6/10 in intensity, constant, localized in the lower lumbar spine, achy in character w shooting pain towards the BLEs. Pain is provoked by standing/ walking for periods of 20 min or more. Pain is alleviated by PT after lumbar discectomy (2004) which was ineffective, chiropractic treatments which are contraindicated after surgery, heat, ice, medications, topical, laying supine and rest. Interventional pain procedures completed include DENIES Patient is currently on [place], Tyl #3, Flexeril, BioFreeze Patient denies any side effects of the medication(s), denies excessive drowsiness or sleepiness, denies suicidal ideation and reports that the current pain medication is helping to control the pain and improve activities of daily living. Patient denies any motor or sensory deficits. Patient denies any fever or night sweats, denies any change in the bowel movements or urination. Physical Examination: -Constitutional: Cooperative. Not in acute distress . - Neurologic: Cranial nerve II to XII intact. No focal neurological deficits. - Psychatric: Alert & oriented x 3. Matching mood & appropriate affect. Judgment and insight intact. - Musculoskeletal: Cervical spine: Muscle bulk/ tone/ strength in the bilateral upper extremities normal Vertebral body tenderness to palpation over Spurling test positive Distraction test positive Facet loading test positive TTP Thoracic spine Muscle bulk / tone/ strength in the bilateral paraspinal muscles normal Vertebral body tender to palpation over Facet loading test positive TTP Lumbar spine: +3" well- healed vertical incisional scar overlying L3-L5 Motor bulk/ tone/ strength lower extremities , thigh and legs : 5/5 Deep tendon reflexes : Normal Knee Jerk. Normal Ankle Jerk . Vertebral body tenderness to palpation over L5 Shah Test positive Lumbar Facet Loading Test positive on BL Straight Leg Raise: positive at 30 degrees right side/ left side Gaenslen's Test positive Sacral spine : Severe tenderness over the Sacroiliac joint: right side / left side Range of motion: Flexion of the lumbar spine <60 degrees Range of motion: Extension of the lumbar spine <20 degrees Gaenslen's Test positive right side / left side Zan test: positive right side / left side Thigh Thrust Test positive right side / left side Sacral Thrust Test positive right side / left side Imaging: MRI noncontrast of the lumbar spine from 03/16/23 reviewed Assessment and plan: Chronic LBP secondary to lumbar DDD, spondylosis with facet arthropathy without myelopathy Recommendation of KIM L5-S1. May need a series of injections for optimal pain relief. Risks, benefits of procedure discussed and pt verbalized understanding. Admits to anticoagulant use or medical history of diabetes. Protocol for discontinuation/ continuation of medications dominga procedure discussed. Minimal anesthesia provided, if clinically indicated, consisting of Versed and Fentanyl. All questions answered. I have spent less than 30 minutes on patient care today. Dr Otero was available by phone for the evaluation of this patient. The time was used to review the medical records including relevant urine studies and Prescription history (MAPs), review of the available imaging, evaluation and examination of the patient, coordination of care with the medical staff and if applicable referring physicians, as well as creation of the medical record PQRS Narrative: Smoking Status Former smoker Hx Alcohol Use (MH) No Home Medications: Ambulatory Orders HYDROcodone/APAP 10-325MG [Pingree 10-325] 1 tab PO Q12H 03/26/14 PARoxetine HCL [Paxil] 60 mg PO HS 03/26/14 Etodolac [Lodine] 400 mg PO BID 12/21/14 Pregabalin [Lyrica] 75 mg PO BID 04/12/16 Cyclobenzaprine [Flexeril] 10 mg PO BID 12/01/17 Turmeric Root Extract [Turmeric] 1,500 mg PO DAILY 12/02/18 busPIRone HCL 10 mg PO BID 12/12/18 lisinopriL 20 mg PO DAILY 01/07/19 Vitamin B Complex 1 each PO DAILY 03/10/19 Cyanocobalamin [Vitamin B-12 Injection] 1,000 mcg SQ QMONTH 03/24/19 Controlled Substance Measures - Controlled Substance Measures Is patient prescribed a controlled substance at discharge?: No
== END ==
LOC: PNWHC3 13:37
PROVIDERS: ATTEND Specialist
DX: M51.36 Other intervertebral disc degeneration, lumbar region (principal); M47.816 Spondylosis without myelopathy or radiculopathy, lumbar region; G89.29 Other chronic pain; Z87.891 Personal history of nicotine dependence; Z91.013 Allergy to seafood
CPT/HCPCS: 99211

== ENCOUNTER 2023-04-26 07:44 | Day surgery (SDC) | payer BC ==
[2023-04-23 14:58] VITALS: BMI 37.2
[2023-04-26 08:18] VITALS: TEMP 96.3
[2023-04-26] MEDS ORDERED: LACTATED RINGERS 1,000 ML IV ONE (08:21)
[2023-04-26] MEDS ORDERED: methylPREDNISolone ACETATE 80 MG/ML 1 ML VIAL ONE (08:40)
--- NOTE | 2023-04-26 08:52 | P.PCN ---
Date of Procedure: 04/26/23 Procedure(s) Performed: PREOPERATIVE DIAGNOSIS: 1- Lumbar Degenerative Disc Diseases 2-Lumbar spondylosis with Facet arthropathy without myelopathy. 3-failed back surgery syndrome lumbar area. POSTOPERATIVE DIAGNOSIS: 1-lumbar degenerative disc disease. 2-lumbar spondylosis with facet arthropathy without myelopathy. 3-failed back surgery syndrome lumbar area PROCEDURE 1. Lumbar epidural steroid injection under fluoroscopic guidance at the L5-S1 level. (Fluoroscopy imaging was available in radiology department). ANESTHESIA: Lidocaine 1% 3 and then only. EBL: Minimal PROCEDURE INDICATION: The patient with low back pain and radiculitis symptoms unresponsive to conservative treatment. Fluoroscopy was used to optimize visualization of the needle placement and to maximize safety. PROCEDURE DESCRIPTION / TECHNIQUE: The patient was seen and identified in the preoperative area. Risks, benefits, complications including but not limited to infections ,bleeding ,allergic reaction to the medications ,nerve damage and not complete pain releife , and alternatives were discussed with the patient. The patient agreed to proceed with the procedure and signed the consent. IV was started, and vital signs were stable. Patient was taken to the OR and time out was completed. The patient was placed in the prone position on procedure table and a pillow was placed under the abdomen to reduce lumbar lordosis. The lumbosacral area was prepped and draped in the usual sterile fashion.ere closely monitored during the procedure. Vital signs was monitered during the entire procedure. Using anterior-posterior fluoroscopy, the L5-S1 interlaminar space was identified and the skin over this site was marked and then infiltrated with 1% lidocaine subcutaneously. Subsequently, a 20-gauge Tuohy epidural needle was inserted and advanced toward the epidural space using the ``Loss of resistance technique and guided by AP and lateral fluoroscopy. The correct needle position in the epidural space under fluoroscopy guidance,then after negative aspiration for blood and CSF and in the absence of paresthesias. Again after negative aspiration, a 6 ml mixture containing 80 mg of Depo-medrol (preservative-free ), and 2 ml of preservative free Normal Saline, and 2 ml of preservative free lidocaine 1% solution was injected . Needle was withdrawn intact, skin was cleansed, and bandages were applied. COMPLICATIONS: None DISPOSITION / PLANS: The patient was placed in a supine position and transferred to the recovery area in a stable condition for observation. There was no evidence of lower extremity motor or sensory deficit after the procedure. Patient was discharged from the recovery room after meeting discharge criteria. Home discharge instructions were given to the patient by the staff. The patient was reexamined prior to discharge. The patient will schedule a follow up in the clinic in 2-4 weeks. note= Isovue was not injected because patient had ALLERGY to shellfish
[2023-04-26 08:57] VITALS: BP 120/58; PULSE 69; RESP 16
[2023-04-26] MEDS ORDERED: LACTATED RINGERS 1,000 ML IV SCH (09:06)
--- NOTE | 2023-04-26 15:52 | FL ---
EXAMINATION TYPE: FL guided pain mgmt statistic DATE OF EXAM: 04/26/2023 FLUOROSCOPY Fluoroscopy time of 1 seconds was used during lumbar epidural steroid injection. 1 image/s document/ s the procedure. DOSE AREA PRODUCT (DAP) UGY*M,MGY*CM: [id number]
== END 2023-04-26 09:07 | disposition home or self-care (01) ==
LOC: ORPAIN 07:44
PROVIDERS: ATTEND Specialist
DX: M51.16 Intervertebral disc disorders with radiculopathy, lumbar region (principal); M47.26 Other spondylosis with radiculopathy, lumbar region; M96.1 Postlaminectomy syndrome, not elsewhere classified; Z91.013 Allergy to seafood
CPT/HCPCS: 62323; J1040

== ENCOUNTER → 2023-06-11 | Outpatient (CLI) | payer BC ==
[2023-06-11 14:00] VITALS: BP 117/74; PULSE 75; RESP 15; TEMP 98.4
--- NOTE | 2023-06-11 14:43 | P.PAINPG ---
PQRS Measure Charge Sheet Comment: A 57 yr old female with a history of severe and chronic LBP secondary to lumbar DDD and spondylosis with facet arthropathy without myelopathy presents today for evaluation s/p KIM L5-S1 #1. Pt states she experienced 80 % pain relief x 6 wks s/p procedure. Pt states she had a RFA of the BL L4-L5, L5-S1 in 2019 where she experienced 90% pain relief x 5 mo s/p procedure. Pt states pain level is provoked at 6/10 in intensity, constant, localized in the lower lumbar spine, achy in character w shooting pain towards the BLEs. Pain is provoked by standing/ walking for periods of 20 min or more. Pain is alleviated by PT after lumbar discectomy (2004) which was ineffective, chiropractic treatments which ar e contraindicated after surgery, heat, ice, medications, topical, laying supine and rest. Oswestry axial pain score of24 . Interventional pain procedures completed include KIM L5-S1 x1 Patient is currently on [place], Tyl #3, Flexeril, BioFreeze Patient denies any side effects of the medication(s), denies excessive drowsiness or sleepiness, denies suicidal ideation and reports that the current pain medication is helping to control the pain and improve activities of daily living. Patient denies any motor or sensory deficits. Patient denies any fever or night sweats, denies any change in the bowel movements or urination. Physical Examination: -Constitutional: Cooperative. Not in acute distress . - Neurologic: Cranial nerve II to XII intact. No focal neurological deficits. - Psychatric: Alert & oriented x 3. Matching mood & appropriate affect. Judgment and insight intact. - Musculoskeletal: Cervical spine: Muscle bulk/ tone/ strength in the bilateral upper extremities normal Vertebral body tenderness to palpation over Spurling test positive Distraction test positive Facet loading test positive TTP Thoracic spine Muscle bulk / tone/ strength in the bilateral paraspinal muscles normal Vertebral body tender to palpation over Facet loading test positive TTP Lumbar spine: +3" well- healed vertical incisional scar overlying L3-L5 Motor bulk/ tone/ strength lower extremities , thigh and legs : 5/5 Deep tendon reflexes : Normal Knee Jerk. Normal Ankle Jerk . Vertebral body tenderness to palpation Shah Test positive Lumbar Facet Loading Test positive on BL L4-L5, L5-S1 Straight Leg Raise: positive at 30 degrees right side/ left side Gaenslen's Test positive Sacral spine : Severe tenderness over the Sacroiliac joint: right side / left side Range of motion: Flexion of the lumbar spine <60 degrees Range of motion: Extension of the lumbar spine <20 degrees Gaenslen's Test positive right side / left side Zan test: positive right side / left side Thigh Thrust Test positive right side / left side Sacral Thrust Test positive right side / left side Imaging: MRI noncontrast of the lumbar spine from 03/16/23 reviewed Assessment and plan: Chronic LBP secondary to lumbar DDD, spondylosis with facet arthropathy without myelopathy Recommendation of BL RFA L4-L5, L5-S1. Pt exhibited sufficient and optimal pain relief w procedure from 2019. May need a series of injections for optimal pain relief. Risks, benefits of procedure discussed and pt verbalized understanding. Admits to anticoagulant use or medical history of diabetes. Protocol for discontinuation/ continuation of medications dominga procedure discussed. Minimal anesthesia provided, if clinically indicated, consisting of Versed and Fentanyl. All questions answered. I have spent less than 30 minutes on patient care today. Dr Otero was available by phone for the evaluation of this patient. The time was used to review the medical records including relevant urine studies and Prescription history (MAPs), review of the available imaging, evaluation and examination of the patient, coordination of care with the medical staff and if applicable referring physicians, as well as creation of the medical record PQRS Narrative: Smoking Status Former smoker Hx Alcohol Use (MH) No Home Medications: Ambulatory Orders HYDROcodone/APAP 10-325MG [Wales 10-325] 1 tab PO Q12H 03/26/14 Etodolac [Lodine] 400 mg PO BID 12/21/14 Pregabalin [Lyrica] 75 mg PO BID 04/12/16 Cyclobenzaprine [Flexeril] 10 mg PO BID 12/01/17 Turmeric Root Extract [Turmeric] 1,500 mg PO DAILY 12/02/18 busPIRone HCL 10 mg PO BID 12/12/18 lisinopriL 20 mg PO DAILY 01/07/19 Vitamin B Complex 1 each PO DAILY 03/10/19 Atorvastatin [Lipitor] 40 mg PO DAILY 04/23/23 FLUoxetine HCL [PROzac] 20 mg PO DAILY 04/26/23 modafiniL [Provigil] 200 mg PO DAILY 04/26/23 Controlled Substance Measures - Controlled Substance Measures Is patient prescribed a controlled substance at discharge?: No
== END ==
LOC: PNWHC3 13:12
PROVIDERS: ATTEND Specialist
DX: M51.37 Other intervertebral disc degeneration, lumbosacral region (principal); M47.817 Spondylosis without myelopathy or radiculopathy, lumbosacral region; G89.29 Other chronic pain; Z87.891 Personal history of nicotine dependence; Z91.013 Allergy to seafood
CPT/HCPCS: 99211

== ENCOUNTER 2023-06-22 07:48 | Day surgery (SDC) | payer BC ==
[2023-06-22] MEDS ORDERED: LACTATED RINGERS 1,000 ML IV SCH (07:59)
[2023-06-22 08:04] VITALS: TEMP 98.4
[2023-06-22] MEDS ORDERED: MIDAZOLAM 2 MG/2 ML VIAL ONE (08:24)
[2023-06-22] MEDS ORDERED: fentaNYL (PF) 50 MCG/ML 2 ML AMP ONE (08:24)
[2023-06-22] MEDS ORDERED: TRIAMCINOLONE ACETONIDE 40 MG/ML 1 ML VIAL ONE (08:27)
[2023-06-22] MEDS ORDERED: ROPIVACAINE 5 MG/ML 20 ML AMPULE ONE (08:27)
--- NOTE | 2023-06-22 08:54 | P.PCN ---
Date of Procedure: 06/22/23 Description of Procedure: Pre- and Post-operative Diagnosis: Lumbar facet arthropathy, and lumbar spon dylosis without myelopathy. Procedure: Bilateral L4-5 radiofrequency thermocoagulation of medial branch under fluoroscopic guidance Bilateral L5-S1 dorsal ramus radiofrequency thermocoagulation under fluoroscopic guidance Surgeon: Luis Alberto Cervantes Anesthesia: Local: 1% Lidocaine, IV sedation : Midazolam 3 mg, and fentanyl 100+ 50 + 50 micrograms. Complications: None Estimated blood loss: None. Specimen removed: None Fluoroscopic image: Saved to patient electronic medical records. Indications for Procedure: The patient is well known to pain clinic for his chronic low back pain management. The lumbar facet loading test was positive with a clinical diagnosis of lumbar facet arthropathy. Patient had marked decrease in pain after the diagnostic medial branch procedure. Came here for radiofrequency ablation for longer pain relief. PROCEDURE DESCRIPTION: The patient was seen and identified in the preoperative area. Risks, benefits, complications, and alternatives were discussed with the patient. The patient agreed to proceed with the procedure and signed the consent. IV was started. Vital signs were stable. Patient was taken to the procedure room and timeout was completed. The patient was placed in the prone position on procedure table and a pillow was placed under the abdomen to reduce lumbar lordosis. The lumbosacral area was prepped and draped in the usual sterile fashion. Critical pause was taken. Vital signs were closely monitored during the procedure. The fluoroscopic camera was placed in the anteroposterior position to identify the junction of superior articular process and its corresponding injection with its transverse process of Right side L4, L5, S1, which were anesthetized with 1% lidocaine. We used 18-gauge 100-mm curved, sharp radiofrequency cannula with 10-mm active tip for the procedure. The first cannula was guided by fluoroscopy to the S1 superior articular process and its corresponding junction with its ala. The second cannula was guided by fluoroscopy into the L5 superior articular process and its corresponding junction with its transverse process and pedicle. The third cannula was guided by fluoroscopy into the L4 SAP and its corresponding junction with its transverse process and its pedicle. After confirmation of needle tip position on oblique view,, and lateral view each site underwent motor testing at 2 Hz and 0 to 2.5 volts, and there was good motor stimulation in the back and no radicular symptoms or paresthesias. After confirmation of motor testing, 0.5 mL of block solution injected at each site . Block solution contained 4 mL of 0.5% ropivacaine preservative free mixed with 40 MG of Kenalog. At this time, each site was ablated using continuous radio frequency mode at 80 degrees Celsius for 90 seconds at each level. At the end of the procedure, each needle was retracted approximately 1 cm and the skin was infiltrated with 0.5% ropivacaine preservative free 1 ml at each site. Skin was cleansed and bandages were applied. Entire procedure repeated on the left side. Skin was cleansed and bandages were applied. Disposition : The patient tolerated the procedure very well. The patient was transferred to the recovery room and remained stable until discharged home. The patient was given detailed discharge instructions for infection, bleeding, and increased pain at the injection site, and was advised to seek immediate medical attention should significant side effects develop. The patient will be scheduled with Pain Clinic within 4 weeks.
[2023-06-22] MEDS ORDERED: IV FLUID CONTINUATION 600 ML IV ONE (08:56)
[2023-06-22 09:04] VITALS: PULSE 78; RESP 18
[2023-06-22 09:36] VITALS: BP 110/54
--- NOTE | 2023-06-22 10:07 | FL ---
Fluoroscopy History: PATRICIA LUM RAD FREQ FB bilat lumbar facet block, 13sec fl time, DAP=.[id number]
== END 2023-06-22 09:30 | disposition home or self-care (01) ==
LOC: ORPAIN 07:48
DX: M47.816 Spondylosis without myelopathy or radiculopathy, lumbar region (principal); G89.29 Other chronic pain; Z88.8 Allergy status to other drugs, medicaments and biological substances; I10 Essential (primary) hypertension; E78.00 Pure hypercholesterolemia, unspecified; F32.A Depression, unspecified; Z79.899 Other long term (current) drug therapy
CPT/HCPCS: 64635; 64636 ×2; J2250; J3301; J3010; J2795

== ENCOUNTER → 2023-07-12 | Outpatient (CLI) | payer BC ==
--- NOTE | 2023-07-12 18:57 | CTL ---
EXAMINATION TYPE: CT Low Dose Lung DATE OF EXAM: 07/12/2023 3:43 PM CLINICAL INDICATION:Female, 57 years old with history of Z12.2 ENCNTR SCREEN FOR MALIGNANT NEOPLASM Z 87.891; current every day smoker, 2 packs per day x 35 years. , history of tobacco use. COMPARISON: 01/07/2019 TECHNIQUE: Multiple axial non-contrast scans were obtained from approximately the lung apices through the upper abdomen. Coronal and sagittal reformatted images were obtained. Low dose technique was uti lized. CT DLP: 83.4 mGycm, Automated exposure control for dose reduction was used. CT Contrast: Contrast used: None Oral contrast used: None FINDINGS: ======== Lack of intravenous contrast and low dose technique limits the evaluation of the vascular and soft ti ssue structures. LUNGS: No evidence of pulmonary fibrosis. No evidence of focal consolidation, pneumothorax or pleural effusion. Mild to moderate emphysema changes seen throughout the lungs. Nodules: RUL: None. RML: None. RLL: None. ARCADIO: None. LLL: None. AIRWAY: Patent and unremarkable. HEART: Size within normal limits. MEDIASTINUM: No gross evidence of adenopathy. VASCULATURE: No aortic aneurysm. MUSCULOSKELETAL: No acute osseous abnormalities SOFT TISSUES/LYMPH NODES: Unremarkable. LOWER NECK: No significant findings. UPPER ABDOMEN: The gallbladder surgically absent. IMPRESSION: 1. No clinically significant pulmonary nodules. 2. Mild to moderate coronary artery atherosclerosis. 3. Mild to moderate emphysema CT LUNG RAD AND CT CHEST RECOMMENDATION: Lung-Rad 1 Negative: Continue annual screening with LDCT in 12 months. S Modifier (other clinically significant findings): None Recommend smoking cessation (if current smoker), or continuation of smoking cessation (if prior smoke r). Annual screening for lung cancer with low-dose computed tomography is recommended in adults ages 55 to 77 years who have a 30 pack-year smoking history and currently smoke or have quit within the pa st 15 years. Screening should be discontinued once a person has not smoked for 15 years or develops a health problem that substantially limits life expectancy or the ability or willingness to have curat carmen lung surgery. Lung rads 2021 [email or web address]
== END | disposition home or self-care (01) ==
LOC: RADCTMAIN 15:24
PROVIDERS: ATTEND Internal Medicine
DX: Z12.2 Encounter for screening for malignant neoplasm of respiratory organs (principal); I25.10 Atherosclerotic heart disease of native coronary artery without angina pectoris; J43.9 Emphysema, unspecified; Z87.891 Personal history of nicotine dependence
CPT/HCPCS: 71271

== ENCOUNTER → 2023-11-06 | Outpatient (CLI) | payer BC ==
--- NOTE | 2023-11-07 15:12 | MM ---
Reason for Exam: Screening (asymptomatic). Last mammogram was performed 1 year(s) and 2 month(s) ago. Patient History: Menarche at age 12. First Full-Term at age 17. Postmenopausal. Hormonal Contraceptives for 27 years from age 17 until age 44. Paternal grandmother had breast cancer. Risk Values: Katelyn 5 year model risk: 1.0%. NCI Lifetime model risk: 5.5%. Prior Study Comparison: 07/07/2020 Right Diagnostic Mammogram, [facility]. 08/26/2021 Bilateral Screening Mammogram, [facility]. 09/14/2022 Bilateral MG screening mammo w CAD, [facility]. Tissue Density: There are scattered fibroglandular densities. Findings: Analyzed By CAD. There is no suspicious group of microcalcifications or new suspicious mass. Overall Assessment: Negative, BI-RAD 1 Management: Screening Mammogram of both breasts in [address] [facility] will attempt to contact patient to return for supplemental views and ultrasound if indicated. Patient should continue monthly self-breast exams. A clinical breast exam by your physician is recommended on an annual basis. This exam should not preclude additional follow-up of suspicious palpable abnormalities. Note on Katelyn scores and lifetime risk: 1. A Katelyn score greater than 3% is considered moderate risk. If this is the case, consider specialist referral to assess eligibility for a risk reducing agent. 2. If overall lifetime risk for the development of breast cancer is 20% or higher, the patient may qualify for future screening with alternating mammogram and breast MRI. Electronically signed and approved by: Cristóbal Lamar DO
== END | disposition home or self-care (01) ==
LOC: RADMAMWWP 15:45
PROVIDERS: ATTEND Internal Medicine
DX: Z12.31 Encounter for screening mammogram for malignant neoplasm of breast (principal); Z78.0 Asymptomatic menopausal state; Z80.3 Family history of malignant neoplasm of breast
CPT/HCPCS: 77063; 77067

== ENCOUNTER → 2023-11-08 | Outpatient (CLI) | payer BC ==
[~2023-11-08] MED LIST changes: -LACTATED RINGERS 1,000 ML IV SCH; +REGADENOSON 0.4 MG/5 ML SYRINGE IV ONE
--- NOTE | 2023-11-08 09:58 | CA ---
Lexiscan Nuclear Stress Test Report Name: Kiah Sanchez Exam Date: 11/08/2023 09:15 Exam Location: [facility] Ht (in): 63 Wt (lb): 214 BSA: 1.99 Ordering Phys: Margo Fischer MD Referring Phys: Margo Fischer MD Technologist: SARAI CAAL Age: 58 Gender: F : 1965 Procedure CPT: Indications: I25.10 Atherosclerotic heart disease ICD-10 Codes: Patient History: Medications: LISINOPRIL, ATORVASTATIN, PROSAC, FLEXORAL, NORCO, LYRICA Meds past 24 hrs: Pretest Chest Pain: STRESS TEST Lexiscan Protocol Exercise Duration (min:sec): 02:[address] Depressions (mm): Angina Score: Yanes Score: Resting HR (bpm): 75 Peak HR (bpm): 97 Resting BP (mmHg): 117 / 64 Peak BP (mmHg): 123 / 60 MPHR: 161 Target HR: 137 % MPHR: 60 METS: 1.0 Total Dose: Peak Dose: Atropine: Double Product: 45683 BP Response: Stress Termination: PROTOCOL COMPLETE Stress Symptoms: NO SYMPTOMS Stress Summary: ECG ANALYSIS Resting ECG: Stress ECG: CONCLUSIONS Baseline EKG revealed a normal sinus rhythm without significant ST-T changes. With Lexiscan administration the heart rate went up from 74-92 bpm and the blood pressure changed from 117/64- 123/60. Patient was asymptomatic EKG was unremarkable. By EKG criteria this is a unremarkable Lexiscan stress test. The nuclear scan results which are more pertinent will be reported with radiologist Dr. David Mcnally MD (Electronically Signed) Final Date: 08 November 2023 09:57
--- NOTE | 2023-11-08 23:35 | NM ---
EXAMINATION TYPE: NM stress lexiscan cardiolite DATE OF EXAM: 11/08/2023 COMPARISON: None HISTORY: Atherosclerotic heart disease TECHNIQUE: After the intravenous administration of 10.6 mCi Tc 99m Sestamibi - Cardiolite resting SP ECT images acquired 45 minutes post injection. At peak stress 26.2 mCi Tc 99m Sestamibi - Stress images obtained 30 minutes post injection The patient was stressed with 0.4mg Lexiscan. FINDINGS: No fixed defects are evident. There is mild diminished radiotracer accumulation along the distal third of the anterior wall extendi ng towards cardiac apex on the stress images. This has a more normal appearance on the resting images . Findings can be compatible with stress-induced ischemic change. There is dyskinesia of the apex. Some dyskinesia of the distal anterior wall is also present. Some dy skinesia of the distal septal wall may be present. Ejection fraction is calculated to be 63 %. IMPRESSION: 1. Mild stress-induced ischemic change distal third anterior wall. 2. Some dyskinesia of cardiac wall of the anterior, septal, and cardiac apex.
== END | disposition home or self-care (01) ==
LOC: RADNMMAIN 07:46
PROVIDERS: ATTEND Internal Medicine
DX: I25.10 Atherosclerotic heart disease of native coronary artery without angina pectoris (principal); G24.9 Dystonia, unspecified
CPT/HCPCS: 93017; 78452; A9500; J2785

== ENCOUNTER 2023-12-10 07:04 | Day surgery (SDC) | payer BC ==
[~2023-12-10 07:04] MED LIST changes: +ALPRAZolam 0.25 MG TAB PO PRN; +ALPRAZolam 0.5 MG TAB PO PRN; +ASPIRIN 325 MG TAB PO ONE; +NITROGLYCERIN SL TABS 0.4 MG TAB SUBLINGUAL PRN; -REGADENOSON 0.4 MG/5 ML SYRINGE IV ONE; +SODIUM CHLORIDE 0.9% 1,000 ML in EMPTY BAG 1 BAG IV SCH
[2023-12-10] MEDS: SODIUM CHLORIDE 0.9% 1,000 ML IV ONE (07:35)
[2023-12-10 07:49] VITALS: RESP 16; TEMP 97.8
[2023-12-10 07:50] LABS: Basophils % (A) 0 %; Eosinophils % (A) 0 %; HCT 40.5 % (34.0-46.0); HGB 13.5 gm/dL (11.4-16.0); Lymphocytes # (A) 1.5 k/uL (1.0-4.8); Lymphocytes % (A) 10 %; MCH 29.4 pg (25.0-35.0); MCHC 33.4 g/dL (31.0-37.0); Mean Platelet Volume 7.8; Monocytes # (A) 0.7 k/uL (0-1.0); Monocytes % (A) 5 %; Neutrophils # (A) 13.1 k/uL (1.3-7.7); Neutrophils % (A) 84 %; Platelet Count 314 k/uL (150-450); RDW 13.4 % (11.5-15.5); WBC 15.6 k/uL (3.8-10.6)
[2023-12-10 08:16] LABS: African American GFR (CKD) >90 (>60 ml/min/1.73 sqM); Anion Gap 7 mmol/L; Blood Urea Nitrogen 12 mg/dL (7-17); Calcium 9.3 mg/dL (8.4-10.2); Carbon Dioxide 21 mmol/L (22-30); Chloride 109 mmol/L (98-107); Glucose 103 mg/dL (74-99); Non-African American GFR(CKD) >90 (>60 ml/min/1.73 sqM); Sodium 137 mmol/L (137-145)
[2023-12-10 08:31] LABS: Potassium 4.6 mmol/L (3.5-5.1)
[2023-12-10] MEDS ORDERED: fentaNYL (PF) 50 MCG/ML 2 ML AMP ONE (08:44)
[2023-12-10] MEDS ORDERED: VERAPAMIL 2.5 MG/ML 2 ML AMP ONE (08:45)
[2023-12-10] MEDS ORDERED: LIDOCAINE 1% INJ 10MG/ML (20 ML MDV) ONE (08:45)
[2023-12-10] MEDS: fentaNYL (PF) 50 MCG/1 ML VIAL IVP ONE (09:33)
[2023-12-10] MEDS: LIDOCAINE 1% INJ 10MG/ML (20 ML MDV) SQ ONE ×2 (09:37→09:38)
[2023-12-10] MEDS: MIDAZOLAM 2 MG/2 ML VIAL IVP ONE (09:38)
[2023-12-10] MEDS: VERAPAMIL SYRINGE (5 MG/10 ML) INTRAARTER ONE (09:40)
[2023-12-10] MEDS ORDERED: HEPARIN SODIUM 1,000 UN/ML (10ML VL) ONE (09:42)
[2023-12-10] MEDS: HEPARIN SODIUM 1,000 UN/ML (10ML VL) IV ONE (09:45)
[2023-12-10] MEDS: NITROGLYCERIN 1000MCG/10ML SYRINGE INTRACORON ONE (09:55)
[2023-12-10] MEDS: IOPAMIDOL-370 100ML BTL INJ ONE (09:58)
[2023-12-10] MEDS ORDERED: RX INFO: IV CONTRAST WAS GIVEN 1 EACH MISC MISCELLANE PRN (10:15)
[2023-12-10] MEDS ORDERED: SODIUM CHLORIDE 0.9% 1,000 ML IV SCH (10:15)
--- NOTE | 2023-12-10 10:21 | P.CARDCATH ---
Date of Procedure: 12/10/23 Description of Procedure: Cardiac Catheterization: The patient is a 58-year-old female with a history of hypertension and hyperlipidemia abnormal coronary calcium score who had an abnormal MPI. Recommendations were made regarding cardiac catheterization, the risks and the complications were discussed with the patient who is in full understanding and agreement. 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 Using Xylocaine Anesthesia and modified Seldinger technique, a 6-Belizean sheath was introduced in the right radial artery . Subsequently, selective coronary angiography was performed using a 5-Belizean 3.5 bend Octavia catheter. Multiple views of the coronary artery including hemiaxial views were obtained. The right Octavia catheter was used to cross the aortic valve and LVEDP was calculated. After removing the catheters a 6 Bel[place]an CLS 3.5 guiding catheter was introduced. Subsequently an Omni Doppler flow wire was introduced and IFR was measured at 0.92. Following that, catheter and sheath were removed. Hemostasis was obtained with deployment of vascular band . There was no immediate complication. Patient was returned to room in stable condition. Of note, the patient received a total of 5000 units of intravenous heparin as well as intra-arterial verapamil. Findings: Left main: This is a short size vessel, bifurcating into LAD and left circumflex, left main has no obstructive disease LAD: This is a large sized vessel, giving rise to a proximal large diagonal branch. The diagonal branch proximally has a 50 to 60% plaque the rest of the vessel has no high-grade stenosis Left circumflex: This is a large nondominant vessel giving rise to a large obtuse marginal branch the left circumflex and its branches have no obstructive disease RCA: This is a dominant vessel bifurcating to PDA and PLV the right coronary artery and its branches have no obstructive disease. Left Ventriculogram: Not performed Hemodynamics: There was no gradient across aortic valve, LVEDP was 6-8 mmHg Conclusion: 1. Moderate disease in the large first diagonal branch 2. No obstructive disease in the RCA and left circumflex 3. Right dominance 4. Nonhemodynamically significant diagonal branch lesion by IFR at 0.92 Recommendations: I have recommended to continue medical therapy with aggressive coronary risks modifications. Depending on her progress further recommendations will be made. The findings and the recommendations were discussed with the patient and the family and they were in full understanding and agreement. Duration of sedation is 21 minutes.
[2023-12-10 15:08] VITALS: BP 116/59; PULSE 79
[2023-12-10] MEDS ORDERED: ATORVASTATIN 40 MG TAB PO SCH (21:00)
[2023-12-11] MEDS ORDERED: ASPIRIN 81 MG PO SCH (09:00)
[2023-12-11] MEDS ORDERED: lisinopriL 20 MG TAB PO SCH (09:00)
== END 2023-12-10 13:51 | disposition home or self-care (01) ==
LOC: CATHCVL 07:04
PROVIDERS: ATTEND Internal Medicine Interventional Cardiology
DX: R94.39 Abnormal result of other cardiovascular function study (principal); I10 Essential (primary) hypertension; E78.5 Hyperlipidemia, unspecified; Z79.899 Other long term (current) drug therapy
CPT/HCPCS: 99152; 93458; 93799; 80048; 85025; C1887; C1769 ×3; C1894; J2250; J2001; J1644; Q9967; J3010; J2305

== ENCOUNTER → 2024-07-24 | Outpatient (CLI) | payer BC ==
--- NOTE | 2024-07-24 13:06 | CTL ---
EXAMINATION TYPE: CT Low Dose Lung DATE OF EXAM ORDERED: 07/24/2024 HISTORY: 59-year-old female with personal history of nicotine dependence, former smoker with 70 pack- year history. Lung cancer screening. Z12.2, Z87.891 CT DLP: 78.[address] CTDI: 2.4 mGy Automated exposure control for dose reduction was used. SCREENING VISIT: Annual follow-up COMPARISON: 07/12/2023 TECHNIQUE: Low dose computed tomography scan was performed through the chest at 1 mm thick sections a nd reconstructed images in multiple planes at 1 mm and [address] DIAGNOSTIC QUALITY: Satisfactory FINDINGS: The heart is normal size without pericardial effusion. Mild proximal LAD coronary artery calcificatio ns are present. Aorta normal caliber with a some other scattered calcifications at the great vessel origins. No thoracic lymphadenopathy by CT size criteria. Strandy areas of atelectasis at the left greater than right lung bases. Mild diffuse bronchial wall t hickening. Mild emphysematous change. Minimal biapical pleural-parenchymal scarring. No consolidation or pleural effusion. 3 mm anterolateral left upper lobe pulmonary nodule, axial image 50 is unchanged. 3 mm subpleural pulmonary nodule posterior left apex is unchanged. Visualized upper abdomen shows cholecystectomy clips. Bones: Slight dextroconvexed curvature of the thoracic spine. Hypertrophic facet arthropathy of the t horacic spine with grade 1 anterolisthesis T1-T2 and T2-T3. IMPRESSION: 1. Lungs right stool, benign. A couple stable 3 mm pulmonary nodules. No new suspicious nodules are s een. 2. COPD with mild emphysema. CT LUNG RAD AND CT CHEST RECOMMENDATION: Lung-Rad 2 Benign Appearance or Behavior: Continue annual sc reening with LDCT in 12 months. S Modifier (other clinically significant findings): None [facility], Workstation: [id number], 07/24/2024 1:04 PM
== END | disposition home or self-care (01) ==
LOC: RADCTMAIN 12:38
PROVIDERS: ATTEND Internal Medicine
CPT/HCPCS: 71271

== ENCOUNTER → 2025-05-19 | Outpatient (CLI) | payer BC ==
--- NOTE | 2025-05-19 22:06 | US ---
EXAMINATION TYPE: US venous doppler duplex LE LT DATE OF EXAM: 05/19/2025 4:27 PM COMPARISON: NONE CLINICAL INDICATION: Female, 59 years old with history of I80.9 PHLEBITIS AND THROMBOPHLEBITIS OF UNS PECIFIED; pain in left knee, no history of DVT TECHNIQUE: The lower extremity deep venous system is examined utilizing real time linear array sonog dot with graded compression, doppler sonography and color-flow sonography. Grayscale, color doppler , spectral doppler imaging performed of the deep veins of the lower extremities FINDINGS: SIDE PERFORMED: Left VESSELS IMAGED: Common Femoral Vein Deep Femoral Vein Greater Saphenous Vein * Femoral Vein Popliteal Vein Small Saphenous Vein * Proximal Calf Veins Posterior tibial veins (* superficial vessels) Left Leg: Negative for DVT; There is normal flow, compressibility, vascular waveforms. *tech impres minerva given to office @ 4:30* IMPRESSION: No evidence for DVT within the left lower extremity. [facility] Schneider, , 05/19/2025 10:04 PM
== END | disposition home or self-care (01) ==
LOC: RADUSWWP 16:10
PROVIDERS: ATTEND Orthopaedic Surgery
DX: I80.9 Phlebitis and thrombophlebitis of unspecified site (principal); M17.12 Unilateral primary osteoarthritis, left knee